=== PATIENT | female | born 1995 | race Caucasian/White ===

== ENCOUNTER 2020-06-20 13:17 | Outpatient (CLI) | payer OTHER | END 2020-06-21 23:59 | disposition critical access hospital (66) | LOC: EMS 13:17 | PROVIDERS: ATTEND Emergency Medicine | DX: S99.912A Unspecified injury of left ankle, initial encounter (principal); W10.9XXA Fall (on) (from) unspecified stairs and steps, initial encounter; Y93.E3 Activity, vacuuming; Y99.0 Civilian activity done for income or pay | CPT/HCPCS: A0425; A0429 ==

== ENCOUNTER 2020-06-20 13:37 | Emergency (ER) | payer OTHER ==
[2020-06-20] MEDS ORDERED: HYDROcod/ACETAM 5/325 MG TABLET PO STA (13:39)
--- NOTE | 2020-06-20 13:41 | ED Physician Documentation ---
PD HPI LOWER EXT INJURY - Stated complaint Stated Complaint: ANKLE PX - History obtained from History obtained from: Patient - Additional information Additional information: She was at work and fell down some stairs injuring her left ankle. No other significant injuries. Pain is severe. Review of Systems Ten Systems: 10 systems reviewed and negative Constitutional: reports: Reviewed and negative Eyes: reports: Reviewed and negative Ears: reports: Reviewed and negative Nose: reports: Reviewed and negative Throat: reports: Reviewed and negative PD PAST MEDICAL HISTORY - Present Medications Home Medications: Ambulatory Orders Medication Instructions Recorded Confirmed Gabapentin [Neurontin] 300 mg DAILY 06/20/20 06/20/20 HYDROcod/ACETAM 5/325 [[place] 5/325] 1 - 2 tab PO Q6H PRN #15 tab 06/20/20 Venlafaxine [Effexor] 37.5 mg DAILY 06/20/20 06/20/20 lamoTRIgine [Lamictal] 200 mg PO DAILY 06/20/20 06/20/20 - Allergies Allergies/Adverse Reactions: Allergies Allergy/AdvReac Type Severity Reaction Status Date / Time amoxicillin Allergy Unknown Verified 06/20/20 13:47 metoclopramide [From Reglan] Allergy Unknown Verified 06/20/20 13:47 tamsulosin [From Flomax] Allergy Unknown Verified 06/20/20 13:47 PD ED PE NORMAL - Vitals Vital signs reviewed: Yes - General General: Alert and oriented X 3, No acute distress - Neck Neck: No bony TTP - Derm Derm: Normal color, Warm and dry - Extremities Extremities: Other (Left ankle is quite tender about both malleoli without proximal fibular or foot tenderness) - Neuro Neuro: Alert and oriented X 3, Normal speech Results - Vitals Vitals: Vital Signs - 24 hr 06/20/20 13:37 Temperature 36.3 C L Heart Rate 79 Respiratory 16 Rate Blood Pressure 128/84 H O2 Saturation 99 Oxygen O2 Source Room air - Rads (name of study) L ankle XR Radiology: EMP read contemporaneously (nad) Departure - Departure Disposition: 01 Home, Self Care Clinical Impression: Left ankle sprain Condition: Good Record reviewed to determine appropriate education?: Yes Instructions: ED Sprain Ankle W X Ray Prescriptions: HYDROcod/ACETAM 5/325 [[place] 5/325] 1 - 2 tab PO Q6H PRN #15 tab PRN Reason: Pain Comments: Recheck with your doctor in a week if not improved, return for new or worsening symptoms. You can take ibuprofen in addition to the prescription pain medication for pain. Elevate and ice. Forms: Activity restrictions Discharge Date/Time: 06/20/20 14:34
[2020-06-20 13:47] VITALS: BP 128/84
--- NOTE | 2020-06-20 14:01 | XRAY Report ---
PROCEDURE: Ankle 3 View LT INDICATIONS: ankle inj TECHNIQUE: 3 views of the ankle were acquired. COMPARISON: None FINDINGS: Bones: No fractures or dislocations. Ankle mortise is normally aligned. No suspicious bony lesions . Soft tissues: No tibiotalar joint effusion. Achilles tendon appears normal. Soft tissue swelling is noted and ligamentous injury cannot be excluded. IMPRESSION: No fracture. No osseous lesion. If there are persistent symptoms or continued clinical concern for pa thology, then repeat plain film radiographs (7-10 days) or advanced imaging (CT, MR, bone scan) shoul d be considered for further evaluation. Reviewed by: Minnie Bryson MD, PhD on 06/20/2020 2:00 PM PST Approved by: Minnie Bryson MD, PhD on 06/20/2020 2:00 PM PST Station ID: [id number]
== END 2020-06-20 14:34 | disposition home or self-care (01) ==
LOC: ED 13:37
DX: S93.402A Sprain of unspecified ligament of left ankle, initial encounter (principal); W10.9XXA Fall (on) (from) unspecified stairs and steps, initial encounter; Y99.0 Civilian activity done for income or pay
CPT/HCPCS: 73610; 99283; A9270

== ENCOUNTER 2020-08-10 18:37 | Emergency (ER) | payer MEDICAID, OTHER ==
[2020-08-10] MEDS ORDERED: HYDROmorphone 1 MG/ML CARPUJECT IM STA (18:59)
[2020-08-10] MEDS ORDERED: diazePAM INJ 5 MG/ML SYRINGE IM STA (18:59)
--- NOTE | 2020-08-10 19:02 | ED Physician Documentation ---
History of Present Illness - Stated complaint Stated Complaint: NECK PX - Chief complaint Chief Complaint: Trauma Hd/Nk - Additonal information Additional information: 24-year-old female presents to the emergency department for evaluation of 3 days left neck pain. She reports that it started as a tingling in her neck and shoulder but got progressively worse. Now she has difficulty especially with forward flexion of the neck. She has no loss of strength in her upper arms and no recent falls or trauma. She states she has had similar in the past. Over the last 3 days patient has used Tylenol, ibuprofen arnica warm compresses without relief of pain. She reports the pain is severe enough that is causing her nausea. She denies chest pain or shortness of air. Review of Systems Constitutional: denies: Fever, Chills Eyes: reports: Reviewed and negative Ears: reports: Reviewed and negative Nose: reports: Reviewed and negative Throat: reports: Reviewed and negative Cardiac: reports: Reviewed and negative Respiratory: reports: Reviewed and negative GI: reports: Reviewed and negative : reports: Reviewed and negative Skin: reports: Reviewed and negative Musculoskeletal: reports: Neck pain PD PAST MEDICAL HISTORY - Past Medical History : Kidney stones Psych: Bipolar disorder - Past Surgical History Past Surgical History: Yes - Present Medications Home Medications: Ambulatory Orders Medication Instructions Recorded Confirmed Gabapentin [Neurontin] 300 mg DAILY 06/20/20 08/10/20 Venlafaxine [Effexor] 37.5 mg PO DAILY 06/20/20 08/10/20 lamoTRIgine [Lamictal] 200 mg PO DAILY 06/20/20 08/10/20 Cyclobenzaprine [Flexeril] 10 mg PO TID PRN #10 tablet 08/10/20 - Allergies Allergies/Adverse Reactions: Allergies Allergy/AdvReac Type Severity Reaction Status Date / Time amoxicillin Allergy Unknown Verified 08/10/20 18:39 metoclopramide [From Reglan] Allergy Unknown Verified 08/10/20 18:39 tamsulosin [From Flomax] Allergy Unknown Verified 08/10/20 18:39 - Social History Does the pt smoke?: No Smoking Status: Never smoker Does the pt drink ETOH?: No Does the pt have substance abuse?: Yes PD ED PE EXPANDED - General General: Alert, No acute distress - Neck Neck: Supple w/out meningeal sx, No tenderness, Soft tissue TTP (Left paraspinous tenderness to palpation with palpable spasm appreciated that does extend from just below the occiput into the lower trapezius. Reduced forward flexion of the neck but lateral rotation is preserved.), Limited ROM. No: Adenopathy, Bony TTP - Cardiac Cardiac: Regular Rate, Radial strong equal, Pedal strong equal. No: Murmur Present - Extremities Extremities: Left shoulder (Full range of motion in all planes. Motor strength 5 of 5 bilateral upper extremities. No paresthesias.) Results - Vitals Vitals: Vital Signs - 24 hr 08/10/20 18:40 Temperature 36.8 C Heart Rate 66 Respiratory 18 Rate Blood Pressure 144/82 H O2 Saturation 100 Oxygen O2 Source Room air PD MEDICAL DECISION MAKING - ED course Complexity details: reviewed results, re-evaluated patient, d/w patient ED course: 24-year-old female presents emergency department for evaluation of 3 days acute left neck pain. She has a palpable spasm in this neck that extends down the trapezius. She has no fevers or erythema suggestive of infection. I suspect that this is just minor strain likely related to frequent keyboarding. Patient was given half a milligram of Dilaudid as well as 2.5 mg of Valium with marked improvement in symptoms. Will recommend that she be discharged home with a prescription for Flexeril and warm compress. Emergent return precautions discussed. Departure - Departure Disposition: 01 Home, Self Care Clinical Impression: Neck pain on left side Condition: Stable Record reviewed to determine appropriate education?: Yes Follow-Up: TESSA FRAZIER DO [Primary Care Provider] - Prescriptions: Cyclobenzaprine [Flexeril] 10 mg PO TID PRN #10 tablet PRN Reason: Spasms Comments: You are seen in the emergency department today for left neck pain. As we discussed on exam you do have some mild spasm in the neck which I think is the cause of the pain. It may be related to frequent keyboarding or computer use. I would like you to use a warm compress on your neck for 10 minutes 3 times a day. I have also prescribed a muscle relaxer that I believe will help. It is okay to continue the Tylenol, ibuprofen and Arnica salts at home. Return to the emergency department if you are having worsening pain, fevers develop chest pain or shortness of air.
[2020-08-10 20:24] VITALS: BP 135/89
== END 2020-08-10 20:28 | disposition home or self-care (01) ==
LOC: ED 18:37
DX: M54.2 Cervicalgia (principal)
CPT/HCPCS: 96372; 99283; J1170

== ENCOUNTER 2020-08-11 15:50 | Emergency (ER) | payer MEDICAID ==
[2020-08-11] MEDS ORDERED: diazePAM INJ 5 MG/ML SYRINGE IM STA (16:29)
[2020-08-11] MEDS ORDERED: HYDROmorphone 1 MG/ML CARPUJECT IM STA ×2 (16:29→17:04)
[2020-08-11] MEDS ORDERED: CHERRY SYRUP 10 ML UDC PO ONE ×2 (16:30→17:42)
[2020-08-11] MEDS ORDERED: DEXAMETHASONE 10 MG/ML VIAL PO STA ×2 (16:30→17:42)
--- NOTE | 2020-08-11 16:33 | ED Physician Documentation ---
History of Present Illness - Stated complaint Stated Complaint: NECK PX - Chief complaint Chief Complaint: General - Additonal information Additional information: 24-year-old female return to the emergency department for evaluation of left-si ded neck pain. She was seen by me last night and found to have left-sided neck pain that had occurred 2 days previously simply when typing. Her symptoms markedly improved following small doses of Valium and Dilaudid here in the emergency department. She was discharged home with prescription for Flexeril and has taken the medication twice today without relief. She reports that her neck pain is worse she is now unable to rotate or extend her neck. She denies any fevers falls or trauma. Review of Systems Constitutional: denies: Fever, Chills Eyes: reports: Reviewed and negative Ears: reports: Reviewed and negative Nose: reports: Reviewed and negative Throat: reports: Reviewed and negative Cardiac: reports: Reviewed and negative Respiratory: reports: Reviewed and negative GI: reports: Reviewed and negative : reports: Reviewed and negative Musculoskeletal: reports: Neck pain. denies: Back pain, Extremity pain Neurologic: denies: Generalized weakness, Focal weakness, Numbness PD PAST MEDICAL HISTORY - Past Medical History : Kidney stones Psych: Bipolar disorder - Past Surgical History Past Surgical History: Yes - Present Medications Home Medications: Ambulatory Orders Medication Instructions Recorded Confirmed Gabapentin [Neurontin] 300 mg DAILY 06/20/20 08/11/20 Venlafaxine [Effexor] 37.5 mg PO DAILY 06/20/20 08/11/20 lamoTRIgine [Lamictal] 200 mg PO DAILY 06/20/20 08/11/20 Cyclobenzaprine [Flexeril] 10 mg PO TID PRN #10 tablet 08/10/20 08/11/20 oxyCODONE [Roxicodone] 5 mg PO TID PRN #10 tablet 08/11/20 - Allergies Allergies/Adverse Reactions: Allergies Allergy/AdvReac Type Severity Reaction Status Date / Time amoxicillin Allergy Unknown Verified 08/11/20 15:52 metoclopramide [From Reglan] Allergy Unknown Verified 08/11/20 15:52 tamsulosin [From Flomax] Allergy Unknown Verified 08/11/20 15:52 - Social History Does the pt smoke?: No Smoking Status: Never smoker Does the pt drink ETOH?: No Does the pt have substance abuse?: Yes PD ED PE EXPANDED - General General: Alert, In Pain - Neck Neck: Soft tissue TTP (Left paraspinous muscle palpable and in spasm with radiation down the trapezius and into the shoulder. Full range of motion of shoulders in all planes. No loss of motor strength or weakness in upper extremities. No paresthesias. Reduced forward flexion as well as lateral rotation secondary to pa), Limited ROM. No: Bony TTP - Cardiac Cardiac: Regular Rate, Radial strong equal, Pedal strong equal, Cap refill < 2 sec - Respiratory Respiratory: Clear to ausultation alfreod. No: Distress, Labored - Extremities Extremities: Normal. No: Deformity, Tenderness - Neuro Neuro: Alert and Oriented X 3. No: CNII-XII intact - GCS Eye Opening: Spontaneous Motor: Obeys Commands Verbal: Oriented Total: 15 Results - Vitals Vitals: Vital Signs - 24 hr 08/11/20 15:53 Temperature 36.6 C Heart Rate 66 Respiratory 18 Rate Blood Pressure 127/79 O2 Saturation 94 Oxygen O2 Source Room air PD MEDICAL DECISION MAKING - ED course Complexity details: reviewed old records, reviewed results, re-evaluated patient ED course: 24-year-old female presents the emergency department for evaluation of left sided neck pain that began now 3 days ago when she was sitting at a computer typing. She has a palpable spasm in the left paraspinous muscles. She was seen here last night and improved remarkably after Valium and Dilaudid. She was sent home with prescription for Flexeril but despite taking that today he does not have improved symptoms and in fact they are worse thus she returns here. She has no motor weakness fevers falls or trauma therefore imaging was deferred as well as labs. Patient was initially given Valium and Dilaudid with moderate relief of pain but she continues to be in significant distress therefore an additional 1 mg of Dilaudid was administered with marked improvement in her symptoms. However she did get itchy, which responded to benadryl. Patient will be discharged with prescription for oxycodone to be used very sparingly continue gentle massage and range of motion of the neck. She is encouraged to follow-up with a primary care provider to obtain referral to physical therapy or chiropractor for further evaluation. Emergent return precautions were discussed. Departure - Departure Disposition: 01 Home, Self Care Clinical Impression: Neck pain Prescriptions: oxyCODONE [Roxicodone] 5 mg PO TID PRN #10 tablet PRN Reason: Pain Comments: I am sorry that your neck is giving you such fits. I have written a rx for oxycodone to be used 2-3 times a day for severe neck pain only. Use this cautiously it will legally intoxicated you make you unsafe to drive. Also increases your risk for falls as well as constipation. IF you get excessively itch, it is okay to take benadryl at home. As pain begins to improve I do recommend very gentle massage to try and lighten the spasm in your neck. At this point I would recommend continuation of gentle heat and range of motion exercises. I think that you would benefit by referral to a physical therapist or chiropractor. This referral has to come through your primary care doctor however. If you find that your pain is worsening, you have weakness in your arms, develop any fevers or have difficulty swallowing or breathing please return immediately to the ER.
[2020-08-11] MEDS ORDERED: diphenhydrAMINE INJ 50 MG/ML VIAL IM STA (17:31)
[2020-08-11 18:13] VITALS: BP 140/90
== END 2020-08-11 18:12 | disposition home or self-care (01) ==
LOC: ED 15:50
DX: M54.2 Cervicalgia (principal)
CPT/HCPCS: 96372; 99283; 99284; A9270; J1170; J1200

== ENCOUNTER 2021-03-16 22:00 | Emergency (ER) | payer MEDICAID ==
[2021-03-16 22:15] VITALS: BP 114/74
[2021-03-16] MEDS ORDERED: KETOROLAC 30 MG/ML VIAL IM STA (22:32)
--- NOTE | 2021-03-16 22:34 | ED Physician Documentation ---
PD HPI SKIN - Stated complaint Stated Complaint: R MIDDLE FING LACERATION - Chief complaint Chief Complaint: Laceration - History obtained from History obtained from: Patient - Additional information Additional information: 25-year-old woman Presents status post superficial laceration of the tip of her right middle finger occurring today. Tetanus up-to-date. No other injuries. Review of Systems Skin: reports: Laceration (s) PD PAST MEDICAL HISTORY - Past Medical History : Kidney stones Psych: Bipolar disorder - Past Surgical History Past Surgical History: Yes - Present Medications Home Medications: Ambulatory Orders Medication Instructions Recorded Confirmed Gabapentin [Neurontin] 300 mg DAILY 06/20/20 03/16/21 Venlafaxine [Effexor] 37.5 mg PO DAILY 06/20/20 03/16/21 lamoTRIgine [Lamictal] 200 mg PO DAILY 06/20/20 03/16/21 Etonogestrel/Ethinyl Estradiol 1 03/16/21 [Nuvaring Vaginal Ring] - Allergies Allergies/Adverse Reactions: Allergies Allergy/AdvReac Type Severity Reaction Status Date / Time amoxicillin Allergy Unknown Verified 03/16/21 22:11 metoclopramide [From Reglan] Allergy Unknown Verified 03/16/21 22:11 tamsulosin [From Flomax] Allergy Unknown Verified 03/16/21 22:11 - Social History Does the pt smoke?: No Smoking Status: Never smoker Does the pt drink ETOH?: No Does the pt have substance abuse?: Yes PD ED PE NORMAL - Vitals Vital signs reviewed: Yes - General General: Alert and oriented X 3, No acute distress, Well developed/nourished - Derm Derm: Normal color, Warm and dry, Other (0.5 cm laceration to right third palmar aspect of the distal tip of the finger. Superficial without subcutaneous skin involvement. Good capillary refill. Normal sensation.) - Extremities Extremities: No deformity, Normal ROM s pain - Neuro Neuro: Alert and oriented X 3, No motor deficit, No sensory deficit - Psych Psych: Normal mood, Normal affect Results - Vitals Vitals: Vital Signs - 24 hr 03/16/21 22:08 Temperature 36.6 C Heart Rate 87 Respiratory 16 Rate Blood Pressure 114/74 O2 Saturation 97 Oxygen O2 Source Room air Procedures - Laceration (location) Finger right Length in cm: 0.5 Wound type: Linear, Superficial Neurovascular status: Sensory intact, Motor intact, Vascular intact Skin layer closure: Dermabond Other: Patient tolerated well, No complications, Tetanus UTD PD MEDICAL DECISION MAKING - ED course ED course: 25-year-old woman presented with superficial laceration of the tip of the right third finger. Repaired without issues. Return precautions given. Departure - Departure Disposition: 01 Home, Self Care Clinical Impression: Laceration of finger Condition: Good Instructions: ED Laceration All Comments: You were seen in the emergency department for laceration of your finger. It was cleaned and then Dermabond skin glue was applied which will fall off on its own over time. Do not pick at it. Keep the finger clean and covered while at work. Return to the emergency department if you have any signs or symptoms of infection or any other concerns. Take ibuprofen 400 to 600 mg every 6 hours as needed for pain.
== END 2021-03-16 22:48 | disposition home or self-care (01) ==
LOC: ED 22:00
DX: S61.212A Laceration without foreign body of right middle finger without damage to nail, initial encounter (principal); W27.4XXA Contact with kitchen utensil, initial encounter; Y93.G3 Activity, cooking and baking
CPT/HCPCS: 12001; 99283

== ENCOUNTER 2021-04-11 19:48 | Emergency (ER) | payer MEDICAID ==
[2021-04-11] MEDS ORDERED: KETOROLAC 30 MG/ML VIAL IVP STA (20:11)
[2021-04-11 20:23] LABS: HCG UR QUAL NEGATIVE
[2021-04-11 20:25] LABS: BILIRUBIN,URINE NEGATIVE (NEGATIVE); GLUCOSE, URINE (UA) NEGATIVE (NEGATIVE); LEUKOCYTE ESTERASE, URINE NEGATIVE (NEGATIVE); NITRITE,URINE NEGATIVE (NEGATIVE); OCCULT BLOOD,URINE SMALL (NEGATIVE); PH,URINE 6.5 PH (5.0-7.5); PROTEIN,URINE NEGATIVE (NEGATIVE); UROBILINOGEN,URINE 0.2 (NORMAL) E.U./dL (NORMAL)
[2021-04-11 20:28] LABS: CLARITY,URINE CLEAR (CLEAR); KETONES,URINE (UA) TRACE mg/dL (NEGATIVE)
[2021-04-11 20:29] LABS: BASOPHILS # (AUTO) 0.1 10^3/uL (0.0-0.1); EOSINOPHILS # (AUTO) 0.3 10^3/uL (0.0-0.7); EOSINOPHILS % (AUTO) 2.8 %; HCT - HEMATOCRIT 43.1 % (37.0-47.0); LYMPHOCYTES # (AUTO) 4.8 10^3/uL (1.5-3.5); LYMPHOCYTES % (AUTO) 53.4 %; MEAN CORPUSCULAR HEMOGLOBIN 31.7 pg (27.0-31.0); MEAN CORPUSCULAR HGB CONC 32.5 g/dL (32.0-36.0); MEAN CORPUSCULAR VOLUME 97.5 fL (81.0-99.0); MONOCYTES # (AUTO) 0.6 10^3/uL (0.0-1.0); MONOCYTES % (AUTO) 6.7 %; NEUTROPHILS # (AUTO) 3.2 10^3/uL (1.5-6.6); NEUTROPHILS % (AUTO) 35.7 %; NRBC ABSOLUTE COUNT (AUTO) 0.02 x10^3/uL; NUCLEATED RED BLOOD CELLS AUTO 0.2 /100WBC; PLT - PLATELET COUNT 341 10^3/uL (130-450); RED BLOOD COUNT 4.42 10^6/uL (4.20-5.40); RED CELL DISTRIBUTION WIDTH 12.9 % (12.0-15.0); WHITE BLOOD COUNT 8.9 x10^3/uL (4.8-10.8)
[2021-04-11 20:35] LABS: WBC,URINE 0-3 /HPF (0-5)
[2021-04-11 20:36] LABS: BACTERIA,URINE Rare /HPF (None Seen); MUCUS,URINE Few Strands; SQUAMOUS EPITHELIAL CELL,UR FEW Squamous (<= Few)
[2021-04-11] MEDS ORDERED: SODIUM CHLORIDE 0.9% 1,000 ML IV STA (20:40)
[2021-04-11] MEDS ORDERED: ONDANSETRON 4 MG/2 ML VIAL IVP STA (20:40)
[2021-04-11] MEDS ORDERED: HYDROmorphone 1 MG/ML CARPUJECT IVP STA ×3 (20:40→23:00)
[2021-04-11 21:00] LABS: ALBUMIN 3.7 g/dL (3.2-5.5); BILIRUBIN,TOTAL 0.6 mg/dL (0.2-1.0); CALCIUM 8.8 mg/dL (8.5-10.3); CREATININE 0.8 mg/dL (0.4-1.0); POTASSIUM 3.8 mmol/L (3.5-5.0); TOTAL PROTEIN 7.5 g/dL (6.7-8.2)
--- NOTE | 2021-04-11 21:51 | CT Report ---
PROCEDURE: Abdomen/Pelvis WO INDICATIONS: R flank pain TECHNIQUE: Noncontrast 5 mm thick sections acquired from the diaphragms to the symphysis. 5 mm coronal and sagi ttal reformats were then performed. For radiation dose reduction, the following was used: automated exposure control, adjustment of mA and/or kV according to patient size. COMPARISON: None. FINDINGS: Image quality: Excellent. ABDOMEN: Lung bases: Lung bases are clear. Heart size is normal. Small hiatal hernia. Solid organs: Liver is prominent. Gallbladder is unremarkable. Pancreas is normal in contours. No splenomegaly. No adrenal nodules. Kidneys are normal in size, without hydronephrosis. A few small no nobstructing kidney stones. One right kidney stone measuring 0.3 cm. 3 kidney stones on the left. Lar gest measuring 0.3 cm. Peritoneum and bowel: Unenhanced bowel loops demonstrate normal wall thickness and caliber. A few co lonic diverticuli. The appendix is not dilated. No free fluid or air. Nodes and vessels: No retroperitoneal or mesenteric adenopathy by size criteria. Aorta and inferior vena cava are normal in caliber. Miscellaneous: No ventral hernias. PELVIS: Genitourinary: Bladder wall thickness is normal. No bladder stones. Anteflexed uterus. Contraceptiv e ring in the vagina. Miscellaneous: No inguinal hernias or adenopathy. Bones: No suspicious bony lesions. No vertebral body compression fractures. IMPRESSION: 1. No hydronephrosis. 2. A few small nonobstructing kidney stones. 3. The appendix is not dilated. No free fluid. Reviewed by: Adolfo Houser MD on 04/11/2021 9:50 PM PST Approved by: Adolfo Houser MD on 04/11/2021 9:50 PM PST Station ID: [id number]
--- NOTE | 2021-04-11 22:05 | ED Physician Documentation ---
PD HPI ABD PAIN - Stated complaint Stated Complaint: VOM/BACK PX - Chief complaint Chief Complaint: Abd Pain - History obtained from History obtained from: Patient - History of Present Illness Timing - onset: How many days ago (3) Timing - duration: Days (3) Timing - details: Gradual onset, Still present, Waxing and waning Quality: Sharp, Pain Location: RUQ Radiation: Right flank Improved by: Position Worsened by: Other (nothing) Associated symptoms: Nausea, Vomiting. No: Fever, Hematemesis, Diarrhea, Constipation, Dysuria Similar symptoms before: Diagnosis (kidney stone) Recently seen: Not recently seen - Additional information Additional information: Previously well 25-year-old female who has a history of kidney stones Review of Systems Constitutional: denies: Fever Eyes: denies: Decreased vision Ears: denies: Ear pain Nose: denies: Congestion Throat: denies: Sore throat Cardiac: denies: Chest pain / pressure, Palpitations Respiratory: denies: Dyspnea, Cough GI: reports: Abdominal Pain, Nausea. denies: Constipation, Diarrhea : denies: Dysuria, Frequency Skin: denies: Rash Musculoskeletal: reports: Back pain. 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 : Kidney stones HEENT: None Psych: Bipolar disorder Musculoskeletal: None Derm: None - Past Surgical History Past Surgical History: Yes - Present Medications Home Medications: Ambulatory Orders Medication Instructions Recorded Confirmed Gabapentin [Neurontin] 300 mg DAILY 06/20/20 03/16/21 Venlafaxine [Effexor] 37.5 mg PO DAILY 06/20/20 03/16/21 lamoTRIgine [Lamictal] 200 mg PO DAILY 06/20/20 03/16/21 Etonogestrel/Ethinyl Estradiol 1 03/16/21 [Nuvaring Vaginal Ring] - Allergies Allergies/Adverse Reactions: Allergies Allergy/AdvReac Type Severity Reaction Status Date / Time amoxicillin Allergy Unknown Verified 03/16/21 22:11 metoclopramide [From Reglan] Allergy Unknown Verified 03/16/21 22:11 tamsulosin [From Flomax] Allergy Unknown Verified 03/16/21 22:11 - Social History Does the pt smoke?: No Smoking Status: Never smoker Does the pt drink ETOH?: No Does the pt have substance abuse?: No Substance Use and Type: Marijuana - Immunizations Immunizations are current?: Yes Immunizations: TDAP current <10years - POLST Patient has POLST: No PD ED PE NORMAL - Vitals Vital signs reviewed: Yes (hypertensive ) - General General: Alert and oriented X 3, No acute distress, Well developed/nourished, Other (does not appear to be in pain observed from outside the room. ) - HEENT HEENT: Atraumatic, PERRL, EOMI - Neck Neck: Supple, no meningeal sign, No bony TTP - Cardiac Cardiac: RRR, No murmur - Respiratory Respiratory: No respiratory distress, Clear bilaterally - Abdomen Abdomen: Normal bowel sounds, Soft, Non tender, Non distended, No organomegaly - Back Back: No CVA TTP, No spinal TTP - Derm Derm: Normal color, Warm and dry, No rash - Extremities Extremities: No deformity, No edema - Neuro Neuro: Alert and oriented X 3, screen stretcher 2-12 intact, No motor deficit, No sensory deficit, Normal speech Eye Opening: Spontaneous Motor: Obeys Commands Verbal: Oriented GCS Score: 15 - Psych Psych: Normal mood, Normal affect Results - Vitals Vitals: Vital Signs - 24 hr 04/11/21 04/11/21 19:53 20:54 Temperature 36.6 C Heart Rate 85 82 Respiratory 16 16 Rate Blood Pressure 134/71 H 116/71 O2 Saturation 92 96 Oxygen O2 Source Room air - Labs Labs: Laboratory Tests 04/11/21 04/11/21 04/11/21 20:00 20:00 20:19 WBC 8.9 RBC 4.42 Hgb 14.0 Hct 43.1 MCV 97.5 MCH 31.7 H MCHC 32.5 RDW 12.9 Plt Count 341 MPV 10.0 Neut # (Auto) 3.2 Lymph # (Auto) 4.8 H [place] # (Auto) 0.6 Eos # (Auto) 0.3 Baso # (Auto) 0.1 Absolute Nucleated RBC 0.02 Nucleated RBC % 0.2 Sodium Potassium Chloride Carbon Dioxide Anion Gap BUN Creatinine Estimated GFR (MDRD) Glucose Calcium Total Bilirubin AST ALT Alkaline Phosphatase Total Protein Albumin Globulin Albumin/Globulin Ratio Lipase Urine Color YELLOW Urine Clarity CLEAR Urine pH 6.5 Ur Specific [place] 1.020 Urine Protein NEGATIVE Urine Glucose (UA) NEGATIVE Urine Ketones TRACE Urine Occult Blood SMALL H Urine Nitrite NEGATIVE Urine Bilirubin NEGATIVE Urine Urobilinogen 0.2 (NORMAL) Ur Leukocyte Esterase NEGATIVE Urine RBC 6-10 H Urine WBC 0-3 Ur Squamous Epith Cells FEW Squamous Urine Bacteria Rare Urine Mucus Few Strands Urine Culture Comments NOT INDICATED Urine HCG, Qual NEGATIVE 04/11/21 20:19 WBC RBC Hgb Hct MCV MCH MCHC RDW Plt Count MPV Neut # (Auto) Lymph # (Auto) [place] # (Auto) Eos # (Auto) Baso # (Auto) Absolute Nucleated RBC Nucleated RBC % Sodium 136 Potassium 3.8 Chloride 103 Carbon Dioxide 22 Anion Gap 11.0 BUN 9 Creatinine 0.8 Estimated GFR (MDRD) 86 L Glucose 86 Calcium 8.8 Total Bilirubin 0.6 AST 20 ALT 18 Alkaline Phosphatase 72 Total Protein 7.5 Albumin 3.7 Globulin 3.8 Albumin/Globulin Ratio 1.0 Lipase 38 Urine Color Urine Clarity Urine pH Ur Specific [place] Urine Protein Urine Glucose (UA) Urine Ketones Urine Occult Blood Urine Nitrite Urine Bilirubin Urine Urobilinogen Ur Leukocyte Esterase Urine RBC Urine WBC Ur Squamous Epith Cells Urine Bacteria Urine Mucus Urine Culture Comments Urine HCG, Qual - Rads (name of study) CT ab pel without Radiology: Prelim report reviewed Procedures - Bedside sono Bedside sono by EMP: With use bedside ultrasound the right kidney is imaged there is no evidence of hydronephrosis there is ninimal sonographic tenderness. PD MEDICAL DECISION MAKING - ED course Complexity details: reviewed old records, reviewed results, re-evaluated patient, considered differential, d/w patient ED course: 25-year-old female patient with prior history of kidney stone requiring lithotripsy stone up to 8 mm has symptoms consistent with kidney stone and she presents after 3 days of symptoms now having developed some vomiting. She has some trace blood in her urine and this is the only specific finding on our examination. I did not find her to have hydronephrosis on bedside ultrasound exam and the CT of the abdomen pelvis did not demonstrate hydronephrosis or stone in the ureter. There is a solitary stone in the right kidney and it is small. There are 3 tiny stones in the left kidney as well. The patient was administered Toradol without improvement in her pain she was subsequently administered Dilaudid and Zofran which required multiple doses. She eventually got control of her pain. I was unable to explain the reason for her flank pain. She was uncomfortable going home without control of her pain. We will provide some pain medication and she will follow up with her primary. I have not written a prescription for pain medication only administered a prepack of 4 hydrocodone. Departure - Departure Disposition: Home, Self Care Clinical Impression: Flank pain with history of urolithiasis Condition: Stable Instructions: ED Flank Pain Uncertain Cause Follow-Up: TESSA FRAZIER DO [Primary Care Provider] - Forms: Activity restrictions
[2021-04-11] MEDS ORDERED: HYDROcod/ACET 5/325 Prepack 4 PO STA (23:08)
[2021-04-11 23:47] VITALS: BP 110/74
== END 2021-04-11 23:47 | disposition home or self-care (01) ==
LOC: ED 19:48
DX: R10.11 Right upper quadrant pain (principal); Z87.442 Personal history of urinary calculi
CPT/HCPCS: 36415; 74176; 80053; 81001; 81025; 83690; 85025; 96374; 96375; 96376; 99284; J1170; 87086

== ENCOUNTER 2021-05-03 18:38 | Emergency (ER) | payer MEDICAID ==
[2021-05-03 18:44] VITALS: BP 142/72
[2021-05-03] MEDS ORDERED: BENZONATATE 100 MG CAPSULE PO STA (19:07)
[2021-05-03] MEDS ORDERED: ONDANSETRON ODT 4 MG TABLET TL STA (19:07)
--- NOTE | 2021-05-03 19:16 | ED Physician Documentation ---
History of Present Illness - Stated complaint Stated Complaint: FEELING SICK - Chief complaint Chief Complaint: General - History obtained from History obtained from: Patient - History of Present Illness Timing: How many days ago (2) Pain level max: 5 Pain level now: 5 - Additonal information Additional information: Patient is a 25-year-old female who presents to the emergency department with fever, body aches, nasal congestion and dry cough. She has had her Covid vaccines. Nothing makes it better or worse. Took Tylenol and Motrin just prior to arrival. Denies any possibility of . No shortness of breath. Occasional nausea but no vomiting. No diarrhea or constipation. Review of Systems Constitutional: reports: Fever Nose: reports: Rhinorrhea / runny nose, Congestion Throat: reports: Sore throat Cardiac: denies: Chest pain / pressure Respiratory: reports: Cough GI: reports: Nausea. denies: Vomiting, Diarrhea : denies: Dysuria, Frequency, Hesitancy, Now EGA Skin: denies: Rash Musculoskeletal: denies: Neck pain, Back pain PD PAST MEDICAL HISTORY - Past Medical History Cardiovascular: None Respiratory: None Neuro: None Endocrine/Autoimmune: None GI: None VP PRODUCT: None : Kidney stones HEENT: None Psych: Bipolar disorder Musculoskeletal: None Derm: None - Past Surgical History Past Surgical History: Yes - Present Medications Home Medications: Ambulatory Orders Medication Instructions Recorded Confirmed Gabapentin [Neurontin] 300 mg DAILY 06/20/20 03/16/21 Venlafaxine [Effexor] 37.5 mg PO DAILY 06/20/20 03/16/21 lamoTRIgine [Lamictal] 200 mg PO DAILY 06/20/20 03/16/21 Etonogestrel/Ethinyl Estradiol 1 03/16/21 [Nuvaring Vaginal Ring] Benzonatate [Tessalon] 200 mg PO TID PRN #30 cap 05/03/21 Cetirizine HCl/Pseudoephedrine 1 each PO BID PRN #30 ea 05/03/21 [Zyrtec-D Tablet] Ibuprofen [Motrin] 800 mg PO Q8H PRN #30 tablet 05/03/21 Ondansetron Odt [Zofran] 4 mg TL Q6H PRN #10 tablet 05/03/21 - Allergies Allergies/Adverse Reactions: Allergies Allergy/AdvReac Type Severity Reaction Status Date / Time amoxicillin Allergy Unknown Verified 05/03/21 18:43 metoclopramide [From Reglan] Allergy Unknown Verified 05/03/21 18:43 tamsulosin [From Flomax] Allergy Unknown Verified 05/03/21 18:43 - Social History Does the pt smoke?: No Smoking Status: Never smoker Does the pt drink ETOH?: No Does the pt have substance abuse?: No - Immunizations Immunizations are current?: Yes Immunizations: TDAP current <10years - POLST Patient has POLST: No PD ED PE NORMAL - Vitals Vital signs reviewed: Yes - General General: Alert and oriented X 3, No acute distress, Well developed/nourished - HEENT HEENT: PERRL, Ears normal, Moist mucous membranes, Other (Mild posterior pharyngeal erythema without tonsillar exudates. Uvula midline. Normal phonation. No trismus) - Neck Neck: Supple, no meningeal sign, No adenopathy - Cardiac Cardiac: RRR, Strong equal pulses - Respiratory Respiratory: No respiratory distress, Clear bilaterally - Abdomen Abdomen: Soft, Non tender, Non distended - Derm Derm: Warm and dry, No rash - Extremities Extremities: No edema, No calf tenderness / cord - Neuro Neuro: Alert and oriented X 3 - Psych Psych: Normal mood, Normal affect Results - Vitals Vitals: Vital Signs - 24 hr 05/03/21 18:43 Temperature 37.7 C Heart Rate 101 H Respiratory 18 Rate Blood Pressure 142/72 H O2 Saturation 95 Oxygen O2 Source Room air PD MEDICAL DECISION MAKING - ED course Complexity details: considered differential, d/w patient ED course: Patient is well-appearing, nontoxic. Afebrile. No hypoxia. No respiratory distress. Covid testing sent. Appears to have a viral syndrome. Will prescribe medications for home to help with her symptoms. Recommend she stay home and drink plenty of fluids and rest. Patient counseled regarding signs and symptoms for which I believe and urgent re-evaluation would be necessary. Patient with good understanding of and agreement to plan and is comfortable going home at this time This document was made in part using voice recognition software. While efforts are made to proofread this document, sound alike and grammatical errors may occur. Departure - Departure Disposition: 01 Home, Self Care Clinical Impression: Viral syndrome Condition: Good Instructions: ED Viral Syndrome Follow-Up: TESSA FRAZIER DO [Primary Care Provider] - Within 1 week Prescriptions: Ibuprofen [Motrin] 800 mg PO Q8H PRN #30 tablet PRN Reason: PAIN &/OR FEVER Benzonatate [Tessalon] 200 mg PO TID PRN #30 cap PRN Reason: Cough Ondansetron Odt [Zofran] 4 mg TL Q6H PRN #10 tablet PRN Reason: Nausea / Vomiting Cetirizine HCl/Pseudoephedrine [Zyrtec-D Tablet] 1 each PO BID PRN #30 ea PRN Reason: nasal congestion Comments: Your prescriptions were sent to [facility] in [place]. You will be sick for the next several days. I would recommend drinking plenty of fluids and resting. Take the medications as prescribed. Follow-up with your doctor for further care. You have a Covid test pending. You need to self quarantine until the result is done and negative. The results should be done in 24-48 hours. We will call with a positive result, the fastest way to get a negative result for confirmation though is to go to the hospital website at [email or web address], click on the my [email or web address] tab and sign up for the patient portal. If any of your friends and/or family need to be tested, they can call the hospital at [phone] for an appointment to have their Covid test. Forms: Activity restrictions
== END 2021-05-03 19:37 | disposition home or self-care (01) ==
LOC: ED 18:38
DX: U07.1 COVID-19 (principal)
CPT/HCPCS: 87635; 99283; A9270; Q0162

== ENCOUNTER 2021-08-11 21:00 | Emergency (ER) | payer MEDICAID ==
[2021-08-11 21:14] VITALS: BP 127/75
--- NOTE | 2021-08-11 21:15 | ED Physician Documentation ---
History of Present Illness - Stated complaint Stated Complaint: R LEG PX/NUMBNESS - Chief complaint Chief Complaint: Ext Problem - History obtained from History obtained from: Patient - History of Present Illness Timing: Enter time (15:00), Today Pain level now: 1 Improved by: rest Worsened by: movement, ambulation - Additonal information Additional information: c/o sudden onset RLE dull pain and mild paresthesias. Onset was approximately 3 PM today while walking. Symptoms originate at back of top of leg and at posterior aspect of right buttock, radiate down posterolateral aspect of leg to just distal to knee. denies h/o similar symptoms Review of Systems Cardiac: reports: Reviewed and negative Respiratory: reports: Reviewed and negative Musculoskeletal: reports: Extremity pain. denies: Back pain, Extremity swelling Neurologic: reports: Numbness (RLE paresthesias). 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 : Kidney stones HEENT: None Psych: Bipolar disorder Musculoskeletal: None Derm: None - Past Surgical History Past Surgical History: Yes - Present Medications Home Medications: Ambulatory Orders Medication Instructions Recorded Confirmed Gabapentin [Neurontin] 300 mg DAILY 06/20/20 03/16/21 Venlafaxine [Effexor] 37.5 mg PO DAILY 06/20/20 03/16/21 lamoTRIgine [Lamictal] 200 mg PO DAILY 06/20/20 03/16/21 Etonogestrel/Ethinyl Estradiol 1 03/16/21 [Nuvaring Vaginal Ring] Benzonatate [Tessalon] 200 mg PO TID PRN #30 cap 05/03/21 Cetirizine HCl/Pseudoephedrine 1 each PO BID PRN #30 ea 05/03/21 [Zyrtec-D Tablet] Ibuprofen [Motrin] 800 mg PO Q8H PRN #30 tablet 05/03/21 Ondansetron Odt [Zofran] 4 mg TL Q6H PRN #10 tablet 05/03/21 - Allergies Allergies/Adverse Reactions: Allergies Allergy/AdvReac Type Severity Reaction Status Date / Time amoxicillin Allergy Unknown Verified 08/11/21 21:14 metoclopramide [From Reglan] Allergy Unknown Verified 08/11/21 21:14 tamsulosin [From Flomax] Allergy Unknown Verified 08/11/21 21:14 - Social History Does the pt smoke?: No Smoking Status: Never smoker Does the pt drink ETOH?: No Does the pt have substance abuse?: No - Immunizations Immunizations are current?: Yes Immunizations: TDAP current <10years - POLST Patient has POLST: No PD ED PE NORMAL - Vitals Vital signs reviewed: Yes - General General: Alert and oriented X 3, No acute distress, Well developed/nourished - Abdomen Abdomen: Soft, Non tender - Back Back: No CVA TTP, No spinal TTP - Derm Derm: Normal color, Warm and dry, No rash - Extremities Extremities: No deformity, No tenderness to palpate, Normal ROM s pain, No edema, No calf tenderness / cord - Neuro Neuro: No motor deficit, No sensory deficit Results - Vitals Vitals: Oxygen O2 Source Room air PD MEDICAL DECISION MAKING - ED course Complexity details: considered differential, d/w patient ED course: suspect musculoskeletal origin of symptoms, possibly lumbar strain, lumbar radiculopathy Doubt DVT given sudden onset, lack of swelling, lack of circumferential symptoms (pain, paresthesias are predominantly posterolateral). Emergent testing is not indicated at this time. She expresses concern for DVT, saying she has a family h/o DVT. I provided my reasoning regarding why it is unlikely to be DVT, but that ultrasound is not available at this time anyway. If she has ongoing concerns for DVT, I offered option of having her return after 9 AM for US (at the discretion of whomever evaluates her at that time). Departure - Departure Disposition: 01 Home, Self Care Clinical Impression: Leg pain, right Condition: Good Instructions: ED Sciatica Comments: As we discussed, despite a lack of injury, the description of your symptoms would seem most consistent with a nerve impingement such as the sciatic nerve (as the discharge instructions point out, there is not always low back pain with sciatica, but the diagnosis cannot be reasonably suspected unless there is pain along the course of the sciatic nerve, which you seem to be describing). I have a low suspicion for DVT (deep venous thrombosis) of the leg, but given your family history it would be reasonable to have an ultrasound performed to look into this possibility. As we discussed, ultrasound is not available at [facility] at night; you can return in the morning to the ED for an ultrasound. Discharge Date/Time: 08/11/21 21:55
[2021-08-11] MEDS ORDERED: IBUPROFEN 600 MG TABLET PO STA (21:38)
== END 2021-08-11 21:55 | disposition home or self-care (01) ==
LOC: ED 21:00
DX: M79.604 Pain in right leg (principal)
CPT/HCPCS: 99282; A9270

== ENCOUNTER 2021-11-07 10:47 | Emergency (ER) | payer MEDICAID ==
[2021-11-07 11:07] VITALS: BP 123/71
--- NOTE | 2021-11-07 11:49 | ED Physician Documentation ---
PD HPI UPPER EXT INJURY - Stated complaint Stated Complaint: RT FOREARM PAIN - Chief complaint Chief Complaint: Ext Problem - History obtained from History obtained from: Patient - History of Present Illness Location: Right, Elbow, Forearm Type of injury: Other (she had had IV started in that area right medial antecubital 3 weeks ago when in ER for presumed viral GE. Sine then, she has had persistent tenderness and mild swelling in that area and has increased to ulnar aspect proximal forearm soft tissue.) Where injury occurred: Other (in ER 3 weeks ago when got IV.) Timing - onset: How many weeks ago (3) Timing - duration: Weeks (3) Timing - details: Gradual onset, Still present Worsened by: Palpating Associated symptoms: Swelling. No: Weakness, Numbness, Discolored Similar symptoms before: Has not had sx before Review of Systems Constitutional: denies: Fever, Chills Musculoskeletal: denies: Neck pain, Extremity swelling Neurologic: denies: Focal weakness, Numbness PD PAST MEDICAL HISTORY - Past Medical History Cardiovascular: None Respiratory: None Neuro: None Endocrine/Autoimmune: None GI: None PCA: None : Kidney stones HEENT: None Psych: Bipolar disorder Musculoskeletal: None Derm: None - Past Surgical History Past Surgical History: Yes - Present Medications Home Medications: Ambulatory Orders Medication Instructions Recorded Confirmed Gabapentin [Neurontin] 300 mg DAILY 06/20/20 03/16/21 Venlafaxine [Effexor] 37.5 mg PO DAILY 06/20/20 03/16/21 lamoTRIgine [Lamictal] 200 mg PO DAILY 06/20/20 03/16/21 Etonogestrel/Ethinyl Estradiol 1 03/16/21 [Nuvaring Vaginal Ring] Benzonatate [Tessalon] 200 mg PO TID PRN #30 cap 05/03/21 Cetirizine HCl/Pseudoephedrine 1 each PO BID PRN #30 ea 05/03/21 [Zyrtec-D Tablet] Ibuprofen [Motrin] 800 mg PO Q8H PRN #30 tablet 05/03/21 Ondansetron Odt [Zofran] 4 mg TL Q6H PRN #10 tablet 05/03/21 Ondansetron Odt [Zofran] 4 mg TL Q6H PRN #10 tablet 10/18/21 Naproxen 500 mg PO BID 10 Days #20 tab.sr 11/07/21 - Allergies Allergies/Adverse Reactions: Allergies Allergy/AdvReac Type Severity Reaction Status Date / Time amoxicillin Allergy Unknown Verified 11/07/21 11:07 metoclopramide [From Reglan] Allergy Unknown Verified 11/07/21 11:07 tamsulosin [From Flomax] Allergy Unknown Verified 11/07/21 11:07 prochlorperazine AdvReac Anxiety Verified 11/07/21 11:07 [From Compazine] - Social History Does the pt smoke?: No Smoking Status: Never smoker Does the pt drink ETOH?: No Does the pt have substance abuse?: No - Immunizations Immunizations are current?: Yes Immunizations: TDAP current <10years - POLST Patient has POLST: No PD ED PE NORMAL - Vitals Vital signs reviewed: Yes - General General: Alert and oriented X 3, No acute distress, Well developed/nourished - Derm Derm: Normal color, Warm and dry, No rash - Extremities Extremities: Other (tender medial antecubital area and toward ulnar side proximal forearm soft tissue. No redness per se. No palpable veins/cords. Not tender in axilla. ) - Neuro Neuro: Alert and oriented X 3, No motor deficit, No sensory deficit Results - Vitals Vitals: Vital Signs - 24 hr 11/07/21 11:03 Temperature 36.1 C L Heart Rate 80 Respiratory 16 Rate Blood Pressure 123/71 O2 Saturation 98 Oxygen O2 Source Room air - Rads (name of study) duplex U/S Radiology: Prelim report reviewed (superficial phlebitis in the area. No deep vein thrombosis. ), See rad report PD MEDICAL DECISION MAKING - ED course Complexity details: reviewed results, considered differential (consider superficial phlebitis versus DVT, also could have had med extravasation at the time and causing still local tissue inflammation, but does not seem tissue necrosis and she was given Compazine/Benadryl/Toradol, not phenergan, so less concerning for tissue injury. ), d/w patient Departure - Departure Disposition: 01 Home, Self Care Clinical Impression: Right forearm pain, Superficial phlebitis Condition: Stable Record reviewed to determine appropriate education?: Yes Instructions: ED Phlebitis Superficial Follow-Up: TESSA FRAZIER DO [Primary Care Provider] - Prescriptions: Naproxen 500 mg PO BID 10 Days #20 tab.sr Comments: The ultrasound shows some inflammation and partial clotting of the superficial veins in the area. The deep veins appear normal with good flow. Superficial phlebitis is treated with heat topically and anti-inflammatories and presume would resolve over the next week or so. Follow-up with your primary care if not resolved over the next week. Return to the ER if you have increasing pain redness or swelling particularly swelling through the hand and lower forearm. I [facility] your [facility] to [facility]. Discharge Date/Time: 11/07/21 13:30
[2021-11-07] MEDS ORDERED: NAPROXEN 250 MG TABLET PO STA (12:03)
--- NOTE | 2021-11-07 13:55 | Ultrasound Report ---
PROCEDURE: Duplex Ext Veins Right INDICATIONS: right antecub/elbow pain post IV TECHNIQUE: Real-time imaging, as well as color and pulse Doppler interrogation, were performed of the lower extr emity deep veins from the inguinal ligament to the popliteal fossa. COMPARISON: None. FINDINGS: The deep veins are normally compressible, and free of intraluminal thrombus. Color and pu lse Doppler demonstrate normal phasic intraluminal flow. There is normal augmentation response to di stal compression maneuver. There is a venous branch in the forearm just distal to the antecubital fossa which drains to the basi lic vein. This segment demonstrates intraluminal echogenic thrombus and noncompressibility. More dist ally, this segment of vein is partially compressible. IMPRESSION: 1. Occlusive superficial venous thrombosis along the radial aspect of the forearm in a branch which w ould extend into the basilic vein. 2. No deep venous thrombosis in the right upper extremity. 3. Preliminary results given by the property staff accountant to the ordering provider immediately following the st udy. Reviewed by: Mary Sanchez MD on 11/07/2021 1:54 PM PDT Approved by: Mary Sanchez MD on 11/07/2021 1:54 PM PDT Station ID: [id number]
== END 2021-11-07 13:30 | disposition home or self-care (01) ==
LOC: ED 10:47
DX: I80.8 Phlebitis and thrombophlebitis of other sites (principal)
CPT/HCPCS: 93971; 99282; 99284; A9270

== ENCOUNTER 2021-12-27 22:00 | Emergency (ER) | payer MEDICAID ==
--- NOTE | 2021-12-28 00:27 | ED Physician Documentation ---
PD HPI Fall - Stated complaint Stated Complaint: FELL DOWN STAIRS - Chief complaint Chief Complaint: Back Pain - History obtained from History obtained from: Patient - History of Present Illness Mechanism of injury: Lost balance Fall distance: Standing position Timing - onset: Enter time (21:45), Today Injury(ies) location: Head, Back Pain level now: 6 Quality of pain: Pain Associated symptoms: No: LOC, AMS, Amnesia Contributing factors: No: Anticoagulated, Intoxicated Similar symptoms before: Has not had sx before Recently seen: Not recently seen - Additional information Additional information: At approximately 9:45 PM tonight, patient was leaving work and walking down stairs towards her car, lost balance and fell down stairs. Denies LOC, c/o mild generalized headache, low back pain. Review of Systems Eyes: reports: Reviewed and negative Cardiac: reports: Reviewed and negative Respiratory: reports: Reviewed and negative GI: reports: Reviewed and negative Skin: reports: Reviewed and negative Musculoskeletal: reports: Back pain. denies: Neck pain, Extremity pain, Joint pain, Extremity swelling, Joint swelling Neurologic: reports: Headache. 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 : Kidney stones HEENT: None Psych: Bipolar disorder Musculoskeletal: None Derm: None - Past Surgical History Past Surgical History: Yes - Present Medications Home Medications: Ambulatory Orders Medication Instructions Recorded Confirmed Gabapentin [Neurontin] 300 mg DAILY 06/20/20 12/27/21 Venlafaxine [Effexor] 37.5 mg PO DAILY 06/20/20 12/27/21 lamoTRIgine [Lamictal] 200 mg PO DAILY 06/20/20 12/27/21 Etonogestrel/Ethinyl Estradiol 1 03/16/21 [Nuvaring Vaginal Ring] Benzonatate [Tessalon] 200 mg PO TID PRN #30 cap 05/03/21 Cetirizine HCl/Pseudoephedrine 1 each PO BID PRN #30 ea 05/03/21 [Zyrtec-D Tablet] Ibuprofen [Motrin] 800 mg PO Q8H PRN #30 tablet 05/03/21 Ondansetron Odt [Zofran] 4 mg TL Q6H PRN #10 tablet 05/03/21 Ondansetron Odt [Zofran] 4 mg TL Q6H PRN #10 tablet 10/18/21 Naproxen 500 mg PO BID 10 Days #20 tab.sr 11/07/21 - Allergies Allergies/Adverse Reactions: Allergies Allergy/AdvReac Type Severity Reaction Status Date / Time amoxicillin Allergy Unknown Verified 12/27/21 22:07 metoclopramide [From Reglan] Allergy Unknown Verified 12/27/21 22:07 tamsulosin [From Flomax] Allergy Unknown Verified 12/27/21 22:07 prochlorperazine AdvReac Anxiety Verified 12/27/21 22:07 [From Compazine] - Social History Does the pt smoke?: No Smoking Status: Never smoker Does the pt drink ETOH?: No Does the pt have substance abuse?: No - Immunizations Immunizations are current?: Yes Immunizations: TDAP current <10years - POLST Patient has POLST: No PD ED PE NORMAL - Vitals Vital signs reviewed: Yes - General General: Alert and oriented X 3, No acute distress, Well developed/nourished - HEENT HEENT: Atraumatic, PERRL, EOMI, Moist mucous membranes - Neck Neck: Supple, no meningeal sign, No bony TTP - Cardiac Cardiac: RRR, No murmur - Respiratory Respiratory: No respiratory distress, Clear bilaterally - Abdomen Abdomen: Soft, Non tender - Back Back: No CVA TTP, No spinal TTP - Neuro Neuro: Alert and oriented X 3, 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, No motor deficit, No sensory deficit Eye Opening: Spontaneous Motor: Obeys Commands Verbal: Oriented GCS Score: 15 Results - Vitals Vitals: Oxygen O2 Source Room air - Rads (name of study) CT head Radiology: Prelim report reviewed, See rad report lumbar xrays Radiology: Prelim report reviewed PD MEDICAL DECISION MAKING - ED course Complexity details: reviewed results, re-evaluated patient, considered differential, d/w patient Departure - Departure Disposition: 01 Home, Self Care Clinical Impression: Fall Qualifiers: Encounter type: initial encounter Qualified Code(s): W19.XXXA - Unspecified fall, initial encounter Head injury Qualifiers: Encounter type: initial encounter Qualified Code(s): S09.90XA - Unspecified injury of head, initial encounter Lumbar sprain Qualifiers: Encounter type: initial encounter Qualified Code(s): S33.5XXA - Sprain of ligaments of lumbar spine, initial encounter Condition: Good Instructions: ED Low Back Pain Injury, ED Head Injury Closed Comments: The CT scan of your head is normal as are the xrays of your lower back. You might have worsening pain over the next 1-2 days, but should improve gradually after that. If at any time the pain becomes severe, or if you develop new and concerning signs/symptoms (such as confusion, visual changes, vomiting), please return to the emergency department Discharge Date/Time: 12/28/21 03:30
--- NOTE | 2021-12-28 02:04 | CT Report ---
PROCEDURE: HEAD WO INDICATIONS: fall, head injury, severe headache TECHNIQUE: Noncontrast 4.5 mm thick angled axial sections acquired from the foramen magnum to the vertex. For r adiation dose reduction, the following was used: automated exposure control, adjustment of mA and/or kV according to patient size. COMPARISON: None. FINDINGS: Image quality: Excellent. CSF spaces: Basal cisterns are patent. No extra-axial fluid collections. Ventricles are normal in size and shape. Brain: No intracranial hemorrhage, mass, or mass effect. Alan-white matter interface appears preser kirby. Skull and face: Calvarium and visualized facial bones are intact, without suspicious lesions. Sinuses: Visualized sinuses and mastoids are clear. IMPRESSION: 1. No acute intracranial abnormality. Reviewed by: Rd Case MD on 12/28/2021 2:03 AM PDT Approved by: Rd Case MD on 12/28/2021 2:03 AM PDT Station ID: [id number]
--- NOTE | 2021-12-28 02:27 | XRAY Report ---
PROCEDURE: Lumbar Spine 2 View INDICATIONS: fall, low back pain TECHNIQUE: 3 views of the lumbar spine were acquired. COMPARISON: None. FINDINGS: Bones: 5 [id number] vertebrae are present. There is normal bony alignment. No vertebral body compression fractures. No evidence of traumatic subluxation. No suspicious bony lesions. Soft tissues: Overlying bowel gas pattern is normal. No suspicious soft tissue calcifications. IMPRESSION: 1. No evidence of fracture or traumatic subluxation. Reviewed by: Rd Case MD on 12/28/2021 2:26 AM PDT Approved by: Rd Case MD on 12/28/2021 2:26 AM PDT Station ID: [id number]
[2021-12-28 03:31] VITALS: BP 123/67
== END 2021-12-28 03:30 | disposition home or self-care (01) ==
LOC: ED 22:00
DX: S09.90XA Unspecified injury of head, initial encounter (principal); S33.5XXA Sprain of ligaments of lumbar spine, initial encounter; W10.9XXA Fall (on) (from) unspecified stairs and steps, initial encounter; Y93.89 Activity, other specified; Y92.511 Restaurant or cafe as the place of occurrence of the external cause; Y99.0 Civilian activity done for income or pay
CPT/HCPCS: 99282; 99284

== ENCOUNTER 2022-01-02 21:02 | Emergency (ER) | payer MEDICAID ==
[2022-01-02 21:26] LABS: BILIRUBIN,URINE NEGATIVE (NEGATIVE); GLUCOSE, URINE (UA) NEGATIVE (NEGATIVE); KETONES,URINE (UA) TRACE mg/dL (NEGATIVE); LEUKOCYTE ESTERASE, URINE NEGATIVE (NEGATIVE); NITRITE,URINE NEGATIVE (NEGATIVE); OCCULT BLOOD,URINE LARGE (NEGATIVE); PROTEIN,URINE TRACE mg/dL (NEGATIVE); UROBILINOGEN,URINE 0.2 (NORMAL) E.U./dL (NORMAL)
[2022-01-02 21:29] LABS: CLARITY,URINE CLEAR (CLEAR); HCG UR QUAL NEGATIVE
[2022-01-02] MEDS ORDERED: MORPHINE 2 MG/ML CARPUJECT IVP STA ×2 (21:33→23:02)
[2022-01-02] MEDS ORDERED: SODIUM CHLORIDE 0.9% 1,000 ML IV STA (21:33)
[2022-01-02] MEDS ORDERED: ONDANSETRON 4 MG/2 ML VIAL IVP STA (21:33)
--- NOTE | 2022-01-02 21:36 | ED Physician Documentation ---
PD HPI ABD PAIN - Stated complaint Stated Complaint: KIDNEY PAIN - Chief complaint Chief Complaint: Abd Pain - History obtained from History obtained from: Patient - Additional information Additional information: Patient presenting for evaluation of right flank pain and dysuria for 3 days. Patient reports her pain is sharp and throbbing. Nothing makes it better or worse. It radiates to the umbilical region. She reports a history of kidney stones and believes this feels similar. She denies fever, chest pain, difficulty breathing, vomiting, diarrhea. Review of Systems Constitutional: denies: Fever Nose: denies: Congestion Throat: denies: Sore throat Cardiac: denies: Chest pain / pressure Respiratory: denies: Dyspnea GI: denies: Abdominal Pain, Vomiting : reports: Dysuria. 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 : Kidney stones HEENT: None Psych: Bipolar disorder Musculoskeletal: None Derm: None - Past Surgical History Past Surgical History: Yes - Present Medications Home Medications: Ambulatory Orders Medication Instructions Recorded Confirmed Gabapentin [Neurontin] 300 mg DAILY 06/20/20 12/27/21 Venlafaxine [Effexor] 37.5 mg PO DAILY 06/20/20 12/27/21 lamoTRIgine [Lamictal] 200 mg PO DAILY 06/20/20 12/27/21 Etonogestrel/Ethinyl Estradiol 1 03/16/21 [Nuvaring Vaginal Ring] Benzonatate [Tessalon] 200 mg PO TID PRN #30 cap 05/03/21 Cetirizine HCl/Pseudoephedrine 1 each PO BID PRN #30 ea 05/03/21 [Zyrtec-D Tablet] Ibuprofen [Motrin] 800 mg PO Q8H PRN #30 tablet 05/03/21 Ondansetron Odt [Zofran] 4 mg TL Q6H PRN #10 tablet 05/03/21 Ondansetron Odt [Zofran] 4 mg TL Q6H PRN #10 tablet 10/18/21 Naproxen 500 mg PO BID 10 Days #20 tab.sr 11/07/21 Nitrofurantoin [Macrobid] 1 cap PO BID #10 cap 01/03/22 - Allergies Allergies/Adverse Reactions: Allergies Allergy/AdvReac Type Severity Reaction Status Date / Time amoxicillin Allergy Unknown Verified 01/02/22 21:12 metoclopramide [From Reglan] Allergy Unknown Verified 01/02/22 21:12 tamsulosin [From Flomax] Allergy Unknown Verified 01/02/22 21:12 prochlorperazine AdvReac Anxiety Verified 01/02/22 21:12 [From Compazine] - Social History Does the pt smoke?: No Smoking Status: Never smoker Does the pt drink ETOH?: No Does the pt have substance abuse?: No - Immunizations Immunizations are current?: Yes Immunizations: TDAP current <10years - POLST Patient has POLST: No PD ED PE NORMAL - General General: Alert and oriented X 3, No acute distress, Well developed/nourished - HEENT HEENT: Atraumatic, Moist mucous membranes - Neck Neck: Supple, no meningeal sign - Cardiac Cardiac: RRR, No murmur, Strong equal pulses - Respiratory Respiratory: No respiratory distress, Clear bilaterally - Abdomen Abdomen: Normal bowel sounds, Soft, Non tender, Non distended - Back Back: No CVA TTP, No spinal TTP - Derm Derm: Warm and dry - Extremities Extremities: No edema Results - Vitals Vitals: Vital Signs - 24 hr 01/02/22 01/02/22 01/03/22 21:09 23:16 00:34 Temperature 36.2 C L 36.5 C Heart Rate 73 58 L 61 Respiratory 18 17 16 Rate Blood Pressure 114/67 120/79 121/68 O2 Saturation 96 99 99 Oxygen O2 Source Room air - Labs Labs: Laboratory Tests 01/02/22 01/02/22 01/02/22 21:16 21:40 21:40 WBC 9.5 RBC 4.15 L Hgb 12.8 Hct 39.5 MCV 95.2 MCH 30.8 MCHC 32.4 RDW 12.9 Plt Count 295 MPV 9.8 Neut # (Auto) 6.5 Lymph # (Auto) 2.6 [place] # (Auto) 0.3 Eos # (Auto) 0.0 Baso # (Auto) 0.1 Absolute Nucleated RBC 0.00 Nucleated RBC % 0.0 Sodium 138 Potassium 3.9 Chloride 105 Carbon Dioxide 24 Anion Gap 9.0 BUN 12 Creatinine 0.7 Estimated GFR (MDRD) 100 Glucose 82 Calcium 8.9 Total Bilirubin 0.3 AST 18 ALT 19 Alkaline Phosphatase 56 Total Protein 7.0 Albumin 3.7 Globulin 3.3 Albumin/Globulin Ratio 1.1 Urine Color YELLOW Urine Clarity CLEAR Urine pH 6.0 Ur Specific [place] >=1.030 H Urine Protein TRACE Urine Glucose (UA) NEGATIVE Urine Ketones TRACE Urine Occult Blood LARGE H Urine Nitrite NEGATIVE Urine Bilirubin NEGATIVE Urine Urobilinogen 0.2 (NORMAL) Ur Leukocyte Esterase NEGATIVE Urine RBC TNTC H Urine WBC 0-3 Ur Squamous Epith Cells RARE Squamous Urine Bacteria Rare Ur Microscopic Review INDICATED Urine Culture Comments NOT INDICATED Urine HCG, Qual NEGATIVE PD MEDICAL DECISION MAKING - ED course Complexity details: reviewed results, re-evaluated patient, d/w patient ED course: Patient presenting for evaluation of right flank pain and dysuria. Has a history of stones. Vital signs are stable. Labs reviewed without significant findings. Urine with blood. CT scan with nephrolithiasis but no ureter stones. Patient is feeling better after medications here. Abdominal exam remained benign.No pelvic tenderness. Given dysuria and presence of blood in urine we will treat for urinary tract infection. Patient is advised though that she needs follow-up with her primary care doctor and is aware of the presence of the blood in her urine.She is aware of return precautions. Departure - Departure Disposition: 01 Home, Self Care Clinical Impression: Dysuria Condition: Stable Instructions: ED Dysuria Uncertain Cause Follow-Up: TESSA FRAZIER DO [Primary Care Provider] - Prescriptions: Nitrofurantoin [Macrobid] 1 cap PO BID #10 cap Comments: Your urine showed blood which could be from an infection. Your labs were otherwise normal. Your CT scan showed stones inside of the kidneys but not in the ureters which is the tube that connects the kidney to the bladder. Stones in the kidney Usually do not cause pain until the stones are moving out of the kidney. Because of your symptoms and the blood in your urine I have started you on an antibiotic in case there is an infection. Please have close follow-up with your primary care doctor to ensure that your symptoms and the blood in the urine has resolved.If you have any worsening symptoms please return to the emergency department. I have sent your prescription to [facility]. Discharge Date/Time: 01/03/22 00:34
[2022-01-02 21:50] LABS: BASOPHILS # (AUTO) 0.1 10^3/uL (0.0-0.1); BASOPHILS % (AUTO) 0.7 %; EOSINOPHILS % (AUTO) 0.3 %; HCT - HEMATOCRIT 39.5 % (37.0-47.0); HGB - HEMOGLOBIN 12.8 g/dL (12.0-16.0); LYMPHOCYTES # (AUTO) 2.6 10^3/uL (1.5-3.5); LYMPHOCYTES % (AUTO) 27.4 %; MEAN CORPUSCULAR HEMOGLOBIN 30.8 pg (27.0-31.0); MEAN CORPUSCULAR HGB CONC 32.4 g/dL (32.0-36.0); MEAN CORPUSCULAR VOLUME 95.2 fL (81.0-99.0); MEAN PLATELET VOLUME 9.8 fL (7.9-10.8); MONOCYTES # (AUTO) 0.3 10^3/uL (0.0-1.0); MONOCYTES % (AUTO) 3.1 %; NEUTROPHILS # (AUTO) 6.5 10^3/uL (1.5-6.6); NEUTROPHILS % (AUTO) 68.2 %; PLT - PLATELET COUNT 295 10^3/uL (130-450); RED BLOOD COUNT 4.15 10^6/uL (4.20-5.40); RED CELL DISTRIBUTION WIDTH 12.9 % (12.0-15.0); WHITE BLOOD COUNT 9.5 x10^3/uL (4.8-10.8)
[2022-01-02 21:56] LABS: ALBUMIN 3.7 g/dL (3.2-5.5); ALBUMIN/GLOBULIN RATIO 1.1 (1.0-2.2); BILIRUBIN,TOTAL 0.3 mg/dL (0.2-1.0); CALCIUM 8.9 mg/dL (8.5-10.3); CREATININE 0.7 mg/dL (0.4-1.0); POTASSIUM 3.9 mmol/L (3.5-5.0)
[2022-01-02 22:25] LABS: BACTERIA,URINE Rare /HPF (None Seen); RBC,URINE TNTC /HPF (0-5); SQUAMOUS EPITHELIAL CELL,UR RARE Squamous (<= Few); WBC,URINE 0-3 /HPF (0-5)
[2022-01-02] MEDS ORDERED: KETOROLAC 30 MG/ML VIAL IVP STA (23:01)
--- NOTE | 2022-01-02 23:55 | CT Report ---
PROCEDURE: Abdomen/Pelvis WO INDICATIONS: R flank pain TECHNIQUE: Noncontrast 5 mm thick sections acquired from the diaphragms to the symphysis. 5 mm coronal and sagi ttal reformats were then performed. For radiation dose reduction, the following was used: automated exposure control, adjustment of mA and/or kV according to patient size. COMPARISON: CT abdomen pelvis 04/11/2021. FINDINGS: Image quality: Excellent. Lung bases:There is patchy bilateral groundglass opacities are redemonstrated within the lung bases Heart: Heart is normal in size. There is a small hiatal hernia. URINARY: Right Kidney and Ureter: There is a nonobstructing stone within the right renal pelvis measuring up to 0.5 cm with attenuation values of approximately 300-400 Hounsfield units. No hydronephrosis. No hy droureter. Left Kidney and Ureter: There are 2 nonobstructing left renal stones, with the largest stone measur ing up to 0.5 cm. No hydronephrosis. No hydroureter. Bladder: Normal wall thickness. No stones. ABDOMEN: Liver: Noncontrast evaluation of the liver demonstrates no discrete mass. Gallbladder: Within normal limits without calcified gallstones. Biliary ducts: No biliary ductal dilatation. Pancreas: Unremarkable. Spleen: Normal in size. Adrenal Glands: No adrenal nodules. Stomach and Bowel: Stomach, small bowel loops, and colon are normal in caliber and wall thickness. T he appendix is normal in appearance. There is colonic diverticulosis without acute diverticulitis. Peritoneum: No abnormal intraperitoneal fluid. No free air. Ventral Wall: No hernia. Abdominal Nodes: No retroperitoneal or mesenteric adenopathy by size criteria. Vessels: Aorta and inferior vena cava are normal in size. PELVIS: Pelvic Organs: Unremarkable. Pelvic Nodes: No enlarged lymph nodes. Miscellaneous: No inguinal hernias identified. Bones: Visualized osseous structures demonstrate no suspicious focal lesions. IMPRESSION: 1. Bilateral nephrolithiasis without evidence of obstructive uropathy. 2. No evidence of appendicitis. Reviewed by: Rd Case MD on 01/02/2022 11:53 PM PDT Approved by: Rd Case MD on 01/02/2022 11:53 PM PDT Station ID: [id number]
[2022-01-03] MEDS ORDERED: NITROFURANTOIN MACRO 100 MG CAPSULE PO STA (00:21)
[2022-01-03 00:35] VITALS: BP 121/68
== END 2022-01-03 00:34 | disposition home or self-care (01) ==
LOC: ED 21:02
DX: R30.0 Dysuria (principal); R31.9 Hematuria, unspecified; N20.0 Calculus of kidney
CPT/HCPCS: 36415; 74176; 80053; 81001; 81025; 85025; 96374; 96375; 96376; 99284; A9270; 81003; 87086

== ENCOUNTER 2022-03-20 18:28 | Outpatient (CLI) | payer MEDICAID | END 2022-03-20 18:29 | disposition critical access hospital (66) | LOC: EMS 18:28 | DX: R10.9 Unspecified abdominal pain (principal); M54.9 Dorsalgia, unspecified | CPT/HCPCS: A0425; A0427; A0999 ==

== ENCOUNTER 2022-03-20 18:48 | Emergency (ER) | payer MEDICAID ==
--- NOTE | 2022-03-20 19:20 | ED Physician Documentation ---
PD HPI ABD PAIN - Stated complaint Stated Complaint: R FLANK PAIN - Chief complaint Chief Complaint: Abd Pain - History obtained from History obtained from: Patient - Additional information Additional information: 26-year-old woman with history of recurrent ureterolithiasis presents with sudden onset right flank pain starting at 4 PM today consistent with prior episodes of kidney stones. Pain is severe and radiating towards the right lower quadrant. She is nauseous and vomiting. Subsequent to the pain starting she took some Magic mushrooms in the hope that it would help her pain, it did not. 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 : Kidney stones HEENT: None Psych: Bipolar disorder Musculoskeletal: None Derm: None - Past Surgical History Past Surgical History: Yes - Present Medications Home Medications: Ambulatory Orders Medication Instructions Recorded Confirmed Gabapentin [Neurontin] 300 mg DAILY 06/20/20 12/27/21 Venlafaxine [Effexor] 37.5 mg PO DAILY 06/20/20 12/27/21 lamoTRIgine [Lamictal] 200 mg PO DAILY 06/20/20 12/27/21 Etonogestrel/Ethinyl Estradiol 1 03/16/21 [Nuvaring Vaginal Ring] Benzonatate [Tessalon] 200 mg PO TID PRN #30 cap 05/03/21 Cetirizine HCl/Pseudoephedrine 1 each PO BID PRN #30 ea 05/03/21 [Zyrtec-D Tablet] Ibuprofen [Motrin] 800 mg PO Q8H PRN #30 tablet 05/03/21 Ondansetron Odt [Zofran] 4 mg TL Q6H PRN #10 tablet 05/03/21 Ondansetron Odt [Zofran] 4 mg TL Q6H PRN #10 tablet 10/18/21 Naproxen 500 mg PO BID 10 Days #20 tab.sr 11/07/21 Nitrofurantoin [Macrobid] 1 cap PO BID #10 cap 01/03/22 Ondansetron Odt [Zofran] 4 mg TL Q6H PRN #10 tablet 03/20/22 Oxycodone HCl/Acetaminophen 1 - 2 each PO Q6H PRN #14 tablet 03/20/22 [Percocet 5-325 mg Tablet] - Allergies Allergies/Adverse Reactions: Allergies Allergy/AdvReac Type Severity Reaction Status Date / Time amoxicillin Allergy Unknown Verified 01/02/22 21:12 ketorolac [From Toradol] Allergy Rash Verified 03/20/22 20:50 metoclopramide [From Reglan] Allergy Unknown Verified 01/02/22 21:12 tamsulosin [From Flomax] Allergy Unknown Verified 01/02/22 21:12 prochlorperazine AdvReac Anxiety Verified 01/02/22 21:12 [From Compazine] - Social History Does the pt smoke?: No Smoking Status: Never smoker Does the pt drink ETOH?: No Does the pt have substance abuse?: No - Immunizations Immunizations are current?: Yes Immunizations: TDAP current <10years - POLST Patient has POLST: No PD ED PE NORMAL - Vitals Vital signs reviewed: Yes - General General: Alert and oriented X 3, Other (She is crying, anxious) - Abdomen Abdomen: Normal bowel sounds, Soft, Non tender - Back Back: No CVA TTP, No spinal TTP - Derm Derm: Normal color, Warm and dry - Extremities Extremities: No edema, No calf tenderness / cord - Neuro Neuro: Alert and oriented X 3, Normal speech Results - Vitals Vitals: Vital Signs - 24 hr 03/20/22 03/20/22 03/20/22 19:01 21:04 21:35 Temperature 36.6 C Heart Rate 57 L 58 L 54 L Respiratory 18 18 16 Rate Blood Pressure 129/68 124/73 113/74 O2 Saturation 100 96 98 03/20/22 22:32 Temperature 36.9 C Heart Rate 51 L Respiratory 16 Rate Blood Pressure 152/92 H O2 Saturation 97 Oxygen O2 Source Room air - Labs Labs: Laboratory Tests 03/20/22 03/20/22 03/20/22 18:57 18:57 18:57 WBC 13.5 H RBC 4.38 Hgb 13.8 Hct 42.0 MCV 95.9 MCH 31.5 H MCHC 32.9 RDW 13.4 Plt Count 329 MPV 10.9 H Neut # (Auto) 8.8 H Lymph # (Auto) 3.9 H [place] # (Auto) 0.7 Eos # (Auto) 0.0 Baso # (Auto) 0.1 Absolute Nucleated RBC 0.00 Nucleated RBC % 0.0 Sodium 140 Potassium 2.8 L Chloride 114 H Carbon Dioxide 16 L Anion Gap 10.0 BUN 8 Creatinine 0.6 Estimated GFR (MDRD) 119 Glucose 91 Calcium 6.9 L Serum HCG, Qual NEGATIVE Urine Color Urine Clarity Urine pH Ur Specific [place] Urine Protein Urine Glucose (UA) Urine Ketones Urine Occult Blood Urine Nitrite Urine Bilirubin Urine Urobilinogen Ur Leukocyte Esterase Urine RBC Urine WBC Ur Squamous Epith Cells Urine Bacteria Ur Microscopic Review Urine Culture Comments Urine Opiates Screen Ur Oxycodone Screen Urine Methadone Screen Ur Propoxyphene Screen Ur Barbiturates Screen Ur Tricyclics Screen Ur Phencyclidine Scrn Ur Amphetamine Screen U Methamphetamines Scrn U Benzodiazepines Scrn Urine Cocaine Screen U Cannabinoids Screen 03/20/22 03/20/22 19:45 19:45 WBC RBC Hgb Hct MCV MCH MCHC RDW Plt Count MPV Neut # (Auto) Lymph # (Auto) [place] # (Auto) Eos # (Auto) Baso # (Auto) Absolute Nucleated RBC Nucleated RBC % Sodium Potassium Chloride Carbon Dioxide Anion Gap BUN Creatinine Estimated GFR (MDRD) Glucose Calcium Serum HCG, Qual Urine Color YELLOW Urine Clarity HAZY Urine pH 6.0 Ur Specific [place] >=1.030 H Urine Protein 30 H Urine Glucose (UA) NEGATIVE Urine Ketones 15 H Urine Occult Blood LARGE H Urine Nitrite NEGATIVE Urine Bilirubin NEGATIVE Urine Urobilinogen 0.2 (NORMAL) Ur Leukocyte Esterase NEGATIVE Urine RBC TNTC H Urine WBC 0-3 Ur Squamous Epith Cells FEW Squamous Urine Bacteria Few Ur Microscopic Review INDICATED Urine Culture Comments NOT INDICATED Urine Opiates Screen POSITIVE H Ur Oxycodone Screen NEGATIVE Urine Methadone Screen NEGATIVE Ur Propoxyphene Screen NEGATIVE Ur Barbiturates Screen NEGATIVE Ur Tricyclics Screen NEGATIVE Ur Phencyclidine Scrn NEGATIVE Ur Amphetamine Screen NEGATIVE U Methamphetamines Scrn NEGATIVE U Benzodiazepines Scrn NEGATIVE Urine Cocaine Screen NEGATIVE U Cannabinoids Screen POSITIVE H PD MEDICAL DECISION MAKING - ED course ED course: 26-year-old woman with recurrent renal colic presents in profound pain related to renal colic but also anxiety, potentially related to the Magic mushroom she consumed just prior to arrival. She was medicated initially with 1 mg of lorazepam, 1 mg of hydromorphone, and 4 mg of Zofran. Subsequent to this she was still having a lot of pain and I had ordered Tylenol and Toradol. She took the Tylenol but refused the Toradol stating that she was allergic. I noted that she had had Toradol several times here in the past and queried what her allergy was, she says that it makes her itchy. 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 Subsequently was given 2 mg of IV Dilaudid, at that point she looks much more comfortable but her pain was still a "9" down from a "10" on arrival. We will trial IV lidocaine. Care to Dr Leroy at [facility] of shift pending CT read and reeval Departure - Departure Disposition: 01 Home, Self Care Clinical Impression: Right ureteral stone Condition: Good Record reviewed to determine appropriate education?: Yes Instructions: ED Stone Renal W Colic Prescriptions: Oxycodone HCl/Acetaminophen [Percocet 5-325 mg Tablet] 1 - 2 each PO Q6H PRN #14 tablet PRN Reason: pain Ondansetron Odt [Zofran] 4 mg TL Q6H PRN #10 tablet PRN Reason: Nausea / Vomiting Comments: Follow-up with your urologist, next available appointment regarding the 5mm kidney stone on the right that we found tonight. I have sent prescriptions to [facility] in [place].If you have any worsening symptoms such as fever, increased pain or any new concerns please return to the ER. I am prescribing a short course of narcotic pain medication for you. These are potentially dangerous and addictive medications that should be used carefully. These medications may constipate you. Take an [id number]-[id number] stool softener (docusate) twice daily with plenty of water while taking these medications. If you go 24 hours without a bowel movement, take [id number] miralax, per package instructions. Do not drink or drive while taking these medications. If you received narcotic or sedating medications while in the emergency department, do not drive for 24 hours. Store this medication in a safe, secure place and out of reach of children. It is a violation of federal law to give or sell this medication to another person or to use in a manner other than prescribed. The ED will not refill narcotic prescriptions, including prescriptions lost or stolen. To dispose of unwanted medications: 1. [employer] [facility] at [address] in [place] has a medication drop box. They accept prescription medications (in pill form) Thursday through Thursday 9:00 a.m. to 5:00 p.m. 2. The [employer] [facility] [employer] [facility] accepts prescription medications (in pill form only) for disposal year round. Call for more information. 3. Contact the [facility] for the next [facility] sponsored prescription drug collection event. , [phone], or [phone]; Note that many narcotic pain relievers also contain Tylenol/acetaminophen. Please ensure that your total dose of acetaminophen from all sources does not exceed 3 g (3000 mg) per day. Discharge Date/Time: 03/20/22 22:32
[2022-03-20 19:23] LABS: BASOPHILS # (AUTO) 0.1 10^3/uL (0.0-0.1); BASOPHILS % (AUTO) 0.7 %; HGB - HEMOGLOBIN 13.8 g/dL (12.0-16.0); LYMPHOCYTES # (AUTO) 3.9 10^3/uL (1.5-3.5); LYMPHOCYTES % (AUTO) 28.8 %; MEAN CORPUSCULAR HEMOGLOBIN 31.5 pg (27.0-31.0); MEAN CORPUSCULAR HGB CONC 32.9 g/dL (32.0-36.0); MEAN CORPUSCULAR VOLUME 95.9 fL (81.0-99.0); MEAN PLATELET VOLUME 10.9 fL (7.9-10.8); MONOCYTES # (AUTO) 0.7 10^3/uL (0.0-1.0); MONOCYTES % (AUTO) 5.2 %; NEUTROPHILS # (AUTO) 8.8 10^3/uL (1.5-6.6); PLT - PLATELET COUNT 329 10^3/uL (130-450); RED BLOOD COUNT 4.38 10^6/uL (4.20-5.40); RED CELL DISTRIBUTION WIDTH 13.4 % (12.0-15.0); WHITE BLOOD COUNT 13.5 x10^3/uL (4.8-10.8)
[2022-03-20] MEDS: HYDROmorphone 1 MG/ML CARPUJECT IVP STA ×2 (19:24→21:10)
[2022-03-20] MEDS: LORazepam 2 MG/ML VIAL IVP STA (19:24)
[2022-03-20] MEDS: ONDANSETRON 4 MG/2 ML VIAL IVP STA ×2 (19:25→20:49)
[2022-03-20 19:29] LABS: CALCIUM 6.9 mg/dL (8.5-10.3); CREATININE 0.6 mg/dL (0.4-1.0); POTASSIUM 2.8 mmol/L (3.5-5.0)
[2022-03-20] MEDS: SODIUM CHLORIDE 0.9% 1,000 ML IV STA (19:30)
[2022-03-20 20:01] LABS: HCG,QUALITATIVE BLOOD NEGATIVE
[2022-03-20 20:02] LABS: MUDS CUTOFF CONCENTRATIONS CUTOFF CONC BELOW:
[2022-03-20 20:06] LABS: BILIRUBIN,URINE NEGATIVE (NEGATIVE); CLARITY,URINE HAZY (CLEAR); GLUCOSE, URINE (UA) NEGATIVE (NEGATIVE); KETONES,URINE (UA) 15 mg/dL (NEGATIVE); LEUKOCYTE ESTERASE, URINE NEGATIVE (NEGATIVE); NITRITE,URINE NEGATIVE (NEGATIVE); OCCULT BLOOD,URINE LARGE (NEGATIVE); PROTEIN,URINE 30 mg/dL (NEGATIVE); UROBILINOGEN,URINE 0.2 (NORMAL) E.U./dL (NORMAL)
[2022-03-20] MEDS: POTASSIUM CHLOR 10 MEQ/100 ML 10 MEQ/100 ML BAG IV STA (20:12)
[2022-03-20] MEDS: POTASSIUM CHLORIDE 20 MEQ TABLET PO STA (20:12)
[2022-03-20 20:17] LABS: BACTERIA,URINE Few /HPF (None Seen); RBC,URINE TNTC /HPF (0-5); SQUAMOUS EPITHELIAL CELL,UR FEW Squamous (<= Few); WBC,URINE 0-3 /HPF (0-5)
[2022-03-20 20:18] LABS: AMPHETAMINE SCREEN,URINE NEGATIVE (NEGATIVE); BARBITURATE SCREEN,UR NEGATIVE (NEGATIVE); BENZODIAZEPINES SCREEN, URINE NEGATIVE (NEGATIVE); COCAINE SCREEN URINE NEGATIVE (NEGATIVE); METHADONE SCREEN, URINE NEGATIVE (NEGATIVE); METHAMPHETAMINES SCREEN, URINE NEGATIVE (NEGATIVE); OPIATE SCREEN, URINE POSITIVE (NEGATIVE); OXYCODONE SCREEN, URINE NEGATIVE (NEGATIVE); PROPOXYPHENE SCREEN, URINE NEGATIVE (NEGATIVE); THC CANNABINOID SCREEN, URINE POSITIVE (NEGATIVE); TRICYCLIC ANTIDEPRESSANT,URINE NEGATIVE (NEGATIVE)
[2022-03-20] MEDS: ACETAMINOPHEN 500 MG TABLET PO STA (20:48)
[2022-03-20] MEDS: KETOROLAC 15 MG/ML VIAL IVP STA (20:48)
[2022-03-20] MEDS ORDERED: LIDOCAINE-MPF 2% 5 ML VIAL ONE (21:29)
[2022-03-20] MEDS: LIDOCAINE-MPF 2% 7.5 ML in SODIUM CHLORIDE 0.9% 50 ML IV STA (21:33)
[2022-03-20] MEDS: CALCIUM CARBONATE CHEW 500 MG TABLET PO STA (21:54)
--- NOTE | 2022-03-20 22:01 | CT Report ---
PROCEDURE: ABDOMEN/PELVIS WO INDICATIONS: R flank pain TECHNIQUE: Noncontrast 5 mm thick sections acquired from the diaphragms to the symphysis. 5 mm coronal and sagi ttal reformats were then performed. For radiation dose reduction, the following was used: automated exposure control, adjustment of mA and/or kV according to patient size. COMPARISON: CT abdomen pelvis 01/02/2022, 04/11/2021. FINDINGS: Image quality: Excellent. Lung bases:Visualized lung bases are clear. Heart: Heart is normal in size. There is a small hiatal hernia. URINARY: Right Kidney and Ureter: There is an obstructing urinary stone at the right ureteral pelvic junction measuring up to 0.5 cm with attenuation values of approximately 500-600 Hounsfield units. There is a ssociated moderate right hydronephrosis with minimal perinephric stranding. The ureter is nondistende d distal to the stone. No additional renal stones identified. Left Kidney and Ureter: There are 2 small nonobstructing left renal stones, with the largest stone measuring up to 0.4 cm. No hydronephrosis. No hydroureter. Bladder: Normal wall thickness. No stones. ABDOMEN: Liver: Noncontrast evaluation of the liver demonstrates no discrete mass. Gallbladder: Within normal limits without calcified gallstones. Biliary ducts: No biliary ductal dilatation. Pancreas: Unremarkable. Spleen: Normal in size. Adrenal Glands: No adrenal nodules. Stomach and Bowel: Stomach, small bowel loops, and colon are normal in caliber and wall thickness. T he appendix is normal in appearance. Peritoneum: No abnormal intraperitoneal fluid. No free air. Ventral Wall: No hernia. Abdominal Nodes: No retroperitoneal or mesenteric adenopathy by size criteria. Vessels: Aorta and inferior vena cava are normal in size. PELVIS: Pelvic Organs: Unremarkable. Pelvic Nodes: No enlarged lymph nodes. Miscellaneous: No inguinal hernias identified. Bones: Visualized osseous structures demonstrate no suspicious focal lesions. IMPRESSION: 1. Obstructing urinary stone at the right UPJ with associated moderate right hydronephrosis. 2. Left nephrolithiasis without associated obstructive uropathy. Reviewed by: Rd Vu MD on 03/20/2022 10:00 PM PST Approved by: Rd Vu MD on 03/20/2022 10:00 PM PST Station ID: [id number]
[2022-03-20] MEDS: oxyCODONE/ACET 5/325 Prepack 4 PO STA (22:23)
[2022-03-20] MEDS ORDERED: ONDANSETRON ODT 4 MG Prepack 2 TL PRN (22:25)
--- NOTE | 2022-03-20 22:28 | ED Physician Documentation ---
ED Addendum - Addendum Addendum: 03/20/22 22:26Patient signed out to me by Dr. Guerrero Pending results of CT scan. Reviewed findings of CT With a stone at the right ureteropelvic junction measuring 5 mm. Patient has normal renal function and does not appear septic. Patient has seen a urologist through [facility] In the past but it has been several years.Her pain appears currently controlled. She reports an allergy to Flomax with chest pain and shortness of breath in the past.Discussed continued management with pain medication and nausea medications as well as hydration. Patient advised on strict return precautions for any worsening symptoms. Departure - Departure Disposition: 01 Home, Self Care Clinical Impression: Right ureteral stone Condition: Good Instructions: ED Stone Renal W Colic Prescriptions: Oxycodone HCl/Acetaminophen [Percocet 5-325 mg Tablet] 1 - 2 each PO Q6H PRN #14 tablet PRN Reason: pain Ondansetron Odt [Zofran] 4 mg TL Q6H PRN #10 tablet PRN Reason: Nausea / Vomiting Comments: Follow-up with your urologist, next available appointment regarding the 5mm kidney stone on the right that we found tonight. I have sent prescriptions to [facility] in [place].If you have any worsening symptoms such as fever, increased pain or any new concerns please return to the ER. I am prescribing a short course of narcotic pain medication for you. These are potentially dangerous and addictive medications that should be used carefully. These medications may constipate you. Take an cehx-mmw-sksqnnf stool softener (docusate) twice daily with plenty of water while taking these medications. If you go 24 hours without a bowel movement, take mhss-mwt-uxyutzk miralax, per package instructions. Do not drink or drive while taking these medications. If you received narcotic or sedating medications while in the emergency department, do not drive for 24 hours. Store this medication in a safe, secure place and out of reach of children. It is a violation of federal law to give or sell this medication to another person or to use in a manner other than prescribed. The ED will not refill narcotic prescriptions, including prescriptions lost or stolen. To dispose of unwanted medications: 1. [facility] at [address] in [place] has a medication drop box. They accept prescription medications (in pill form) Thursday through Thursday 9:00 a.m. to 5:00 p.m. 2. The [facility] [employer] accepts prescription medications (in pill form only) for disposal year round. Call for more information. 3. Contact the [facility] for the next [facility] sponsored prescription drug collection event. , [phone], or x7310; Note that many narcotic pain relievers also contain Tylenol/acetaminophen. Please ensure that your total dose of acetaminophen from all sources does not exceed 3 g (3000 mg) per day. Discharge Date/Time: 03/20/22 22:32
[2022-03-20 22:33] VITALS: BP 152/92
== END 2022-03-20 22:32 | disposition home or self-care (01) ==
LOC: EDUNIT# → ED 18:48
DX: R10.31 Right lower quadrant pain (principal); N13.2 Hydronephrosis with renal and ureteral calculous obstruction
CPT/HCPCS: 36415; 74176; 80048; 80306; 81001; 84703; 85025; 96361; 96374; 96375; 96376; 99284; A9270; J1170; J2060; J7040; 81003; 87086

== ENCOUNTER 2022-04-25 19:31 | Emergency (ER) | payer MEDICAID ==
[2022-04-25 20:00] LABS: BASOPHILS # (AUTO) 0.1 10^3/uL (0.0-0.1); BASOPHILS % (AUTO) 0.7 %; HCT - HEMATOCRIT 42.2 % (37.0-47.0); HGB - HEMOGLOBIN 13.7 g/dL (12.0-16.0); LYMPHOCYTES # (AUTO) 3.7 10^3/uL (1.5-3.5); LYMPHOCYTES % (AUTO) 44.8 %; MEAN CORPUSCULAR HEMOGLOBIN 31.1 pg (27.0-31.0); MEAN CORPUSCULAR HGB CONC 32.5 g/dL (32.0-36.0); MEAN CORPUSCULAR VOLUME 95.9 fL (81.0-99.0); MEAN PLATELET VOLUME 9.9 fL (7.9-10.8); MONOCYTES # (AUTO) 0.5 10^3/uL (0.0-1.0); MONOCYTES % (AUTO) 6.4 %; NEUTROPHILS # (AUTO) 3.9 10^3/uL (1.5-6.6); NEUTROPHILS % (AUTO) 47.9 %; PLT - PLATELET COUNT 310 10^3/uL (130-450); RED CELL DISTRIBUTION WIDTH 13.3 % (12.0-15.0); WHITE BLOOD COUNT 8.3 x10^3/uL (4.8-10.8)
[2022-04-25 20:12] LABS: ALBUMIN 3.7 g/dL (3.2-5.5); BILIRUBIN,TOTAL 0.3 mg/dL (0.2-1.0); CALCIUM 9.3 mg/dL (8.5-10.3); CREATININE 0.7 mg/dL (0.4-1.0); POTASSIUM 3.6 mmol/L (3.5-5.0); TOTAL PROTEIN 7.3 g/dL (6.7-8.2)
[2022-04-25] MEDS ORDERED: HYDROmorphone 1 MG/ML CARPUJECT IM STA (20:25)
[2022-04-25] MEDS ORDERED: KETOROLAC 30 MG/ML VIAL IM STA (20:25)
[2022-04-25] MEDS ORDERED: ONDANSETRON ODT 4 MG TABLET TL STA (20:26)
[2022-04-25] MEDS ORDERED: diphenhydrAMINE INJ 50 MG/ML VIAL IM STA (20:26)
--- NOTE | 2022-04-25 20:27 | ED Physician Documentation ---
PD HPI ABD PAIN - Stated complaint Stated Complaint: FEMALE - Chief complaint Chief Complaint: Abd Pain - History obtained from History obtained from: Patient - History of Present Illness Timing - onset: Enter time (16:00), Today Timing - details: Abrupt onset Pain level now: 9 Quality: Pain Location: RUQ Radiation: Right flank Improved by: Other (nothing) Worsened by: Other (no exacerbating factors) Associated symptoms: Nausea. No: Fever, Vomiting, Diarrhea, Constipation Similar symptoms before: Diagnosis (renal colic) Recently seen: Emergency Dept - Additional information Additional information: HPI from patient. She arrives to the emergency department by private vehicle, states she was driven to ER by her brother and her brother is going to be driving her home. Patient complains of right flank pain with nausea but no vomiting, onset 4 PM this afternoon while at rest. The pain waxes and wanes without any exacerbating or ameliorating factors. She says this pain is very familiar to her as she has been "in and out of hospitals" for pain associated with both kidney stones as well as kidney infections. She says she recently completed a course of Macrobid for UTI. She says the soonest appointment she could make with a primary care provider is not until next month. Additionally, she says she has yet to meet with a urologist; she says she has encountered scheduling difficulty with her primary as well as urology because of both schedule availability as well as her work schedule. Patient has 11 visits to emergency departments over the past 12 months to 3 different emergency departments according to the [facility]DA form. [facility] is her third ED visit this month; she was in [facility] ED on the , and this ED on the . Review of Systems Constitutional: denies: Fever, Chills, Sweats Cardiac: reports: Reviewed and negative Respiratory: reports: Reviewed and negative GI: reports: Abdominal Pain (right flank pain but not abdominal pain per se), Nausea. 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 HEENT: None Psych: Bipolar disorder Musculoskeletal: None Derm: None - Past Surgical History Past Surgical History: Yes - Present Medications Home Medications: Ambulatory Orders Medication Instructions Recorded Confirmed Gabapentin [Neurontin] 300 mg DAILY 06/20/20 04/25/22 Venlafaxine [Effexor] 37.5 mg PO DAILY 06/20/20 04/25/22 lamoTRIgine [Lamictal] 200 mg PO DAILY 06/20/20 04/25/22 Etonogestrel/Ethinyl Estradiol 1 03/16/21 [Nuvaring Vaginal Ring] Benzonatate [Tessalon] 200 mg PO TID PRN #30 cap 05/03/21 Cetirizine HCl/Pseudoephedrine 1 each PO BID PRN #30 ea 05/03/21 [Zyrtec-D Tablet] Ibuprofen [Motrin] 800 mg PO Q8H PRN #30 tablet 05/03/21 04/25/22 Naproxen 500 mg PO BID 10 Days #20 tab.sr 11/07/21 04/25/22 Ondansetron Odt [Zofran] 4 mg TL Q6H PRN #10 tablet 03/20/22 04/25/22 Oxycodone HCl/Acetaminophen 1 - 2 each PO Q6H PRN #14 tablet 03/20/22 04/25/22 [Percocet 5-325 mg Tablet] - Allergies Allergies/Adverse Reactions: Allergies Allergy/AdvReac Type Severity Reaction Status Date / Time amoxicillin Allergy Unknown Verified 04/25/22 19:38 metoclopramide [From Reglan] Allergy Unknown Verified 04/25/22 19:38 tamsulosin [From Flomax] Allergy Unknown Verified 04/25/22 19:38 prochlorperazine AdvReac Anxiety Verified 04/25/22 19:38 [From Compazine] - Social History Does the pt smoke?: No Smoking Status: Never smoker Does the pt drink ETOH?: No Does the pt have substance abuse?: No - Immunizations Immunizations are current?: Yes Immunizations: TDAP current <10years - POLST Patient has POLST: No PD ED PE NORMAL - Vitals Vital signs reviewed: Yes - General General: Alert and oriented X 3, No acute distress, Well developed/nourished - Cardiac Cardiac: RRR, No murmur - Respiratory Respiratory: No respiratory distress, Clear bilaterally - Abdomen Abdomen: No: Normal bowel sounds, Soft, Non tender, Non distended, No organomegaly - Back Back: No CVA TTP Results - Vitals Vitals: Vital Signs - 24 hr 04/25/22 04/25/22 04/25/22 19:38 21:07 22:21 Temperature 37.2 C Heart Rate 83 64 84 Respiratory 16 17 17 Rate Blood Pressure 119/80 115/80 108/76 O2 Saturation 96 100 96 Oxygen O2 Source Room air - Labs Labs: Laboratory Tests 04/25/22 04/25/22 04/25/22 19:53 19:56 19:56 WBC 8.3 RBC 4.40 Hgb 13.7 Hct 42.2 MCV 95.9 MCH 31.1 H MCHC 32.5 RDW 13.3 Plt Count 310 MPV 9.9 Neut # (Auto) 3.9 Lymph # (Auto) 3.7 H [place] # (Auto) 0.5 Eos # (Auto) 0.0 Baso # (Auto) 0.1 Absolute Nucleated RBC 0.00 Nucleated RBC % 0.0 Sodium 142 Potassium 3.6 Chloride 108 Carbon Dioxide 24 Anion Gap 10.0 BUN 9 Creatinine 0.7 Estimated GFR (MDRD) 100 Glucose 101 H Calcium 9.3 Total Bilirubin 0.3 AST 22 ALT 19 Alkaline Phosphatase 63 Total Protein 7.3 Albumin 3.7 Globulin 3.6 Albumin/Globulin Ratio 1.0 Urine Color YELLOW Urine Clarity CLEAR Urine pH 7.0 Ur Specific [place] <=1.005 Urine Protein NEGATIVE Urine Glucose (UA) NEGATIVE Urine Ketones NEGATIVE Urine Occult Blood SMALL H Urine Nitrite NEGATIVE Urine Bilirubin NEGATIVE Urine Urobilinogen 0.2 (NORMAL) Ur Leukocyte Esterase NEGATIVE Urine RBC 0-5 Urine WBC 0-3 Ur Epithelial Cells RARE Transitional Ur Squamous Epith Cells RARE Squamous Urine Bacteria Few Urine Culture Comments NOT INDICATED Urine HCG, Qual NEGATIVE PD Medical Decision Making - ED course Complexity details: reviewed old records, reviewed results, re-evaluated patient, considered differential, d/w patient ED course: Patient has essentially normal CBC and ER abdominal panel. In reviewing previous visits, it looks like one of the more successful regimens for pain control for her is Dilaudid, Toradol with Benadryl, as well as Zofran for nausea. I thus ordered these medications (given IM). On reevaluation, she is resting comfortably, awake and alert, and in NAD. She reports excellent relief of her symptoms. She says she has pain medication at home and does not need prescriptions. I emphasized the importance of following up with a urologist. I explained that chronic ureteral obstruction can lead to gradual attenuating feedback to the central nervous system regarding the pain associated with hydroureter and hyd ronephrosis, And that this Can eventually lead to incorrect impression that the obstruction has resolved, with ongoing obstruction eventually potentially causing irreversible damage to the affected kidney. I explained that this can be everted with proper follow-up (urology), and appropriate studies and possibly procedures at the discretion and recommendation of the urologist. Note that I did not order any radiologic studies tonight, as her pain is very similar to previous presentations, as well as on the right side where it has been previously, and her most recent study at [facility] ([facility] A[facility]) was last month and did demonstrate a 5 mm obstructing UPJ calculus. Departure - Departure Disposition: 01 Home, Self Care Clinical Impression: Renal colic on right side Condition: Good Instructions: ED Stone Renal W Colic Follow-Up: TESSA FRAZIER DO [Primary Care Provider] - Comments: As we discussed, you should pursue follow up with a urologist. There were no concerning findings on reese's blood tests, and a urinalysis only showed a very trace amount of blood; there were no findings on the urinalysis to suggest an infection such as a urinary tract infection or kidney infection. Based on the location and description of symptoms, combined with the recurrent nature of the symptoms and previous/recent CAT scans showing a right sided kidney stone, the most likely cause of your symptoms tonight is a recurrence of the right-sided renal colic. I did not perform any studies such as CAT scan or x-rays because alternative diagnoses are unlikely, and results of such studies would be unlikely to change the management at this point based on how well he responded to the medications were given as well as considering the unremarkable blood tests and urinalysis. Discharge Date/Time: 04/25/22 22:38
[2022-04-25 21:20] LABS: BILIRUBIN,URINE NEGATIVE (NEGATIVE); GLUCOSE, URINE (UA) NEGATIVE (NEGATIVE); KETONES,URINE (UA) NEGATIVE (NEGATIVE); LEUKOCYTE ESTERASE, URINE NEGATIVE (NEGATIVE); NITRITE,URINE NEGATIVE (NEGATIVE); OCCULT BLOOD,URINE SMALL (NEGATIVE); PROTEIN,URINE NEGATIVE (NEGATIVE); UROBILINOGEN,URINE 0.2 (NORMAL) E.U./dL (NORMAL)
[2022-04-25 21:23] LABS: CLARITY,URINE CLEAR (CLEAR); HCG UR QUAL NEGATIVE
[2022-04-25 21:32] LABS: BACTERIA,URINE Few /HPF (None Seen); EPITHELIAL CELLS,UR RARE Transitional /HPF (<= Few); RBC,URINE 0-5 /HPF (0-5); SQUAMOUS EPITHELIAL CELL,UR RARE Squamous (<= Few); WBC,URINE 0-3 /HPF (0-5)
[2022-04-25] MEDS ORDERED: diphenhydrAMINE 25 MG CAPSULE PO STA (22:15)
[2022-04-25 22:22] VITALS: BP 108/76
== END 2022-04-25 22:38 | disposition home or self-care (01) ==
LOC: ED 19:31
DX: N23 Unspecified renal colic (principal)
CPT/HCPCS: 36415; 80053; 81001; 81025; 85025; 96372; 99283; 99284; A9270; J1170; J1200; Q0162; 87086

== ENCOUNTER 2022-05-06 06:04 | Outpatient (CLI) | payer MEDICAID | END 2022-05-06 06:05 | disposition critical access hospital (66) | LOC: EMS 06:04 | DX: R10.9 Unspecified abdominal pain (principal); R35.89 Other polyuria; R30.0 Dysuria; R31.0 Gross hematuria; R11.10 Vomiting, unspecified | CPT/HCPCS: A0425; A0427; A0999 ==

== ENCOUNTER 2022-05-06 06:23 | Emergency (ER) | payer MEDICAID ==
[2022-05-06 06:28] VITALS: BP 123/77
[2022-05-06] MEDS ORDERED: SODIUM CHLORIDE 0.9% 1,000 ML IV STA (06:33)
[2022-05-06] MEDS ORDERED: KETOROLAC 15 MG/ML VIAL IVP STA (06:33)
[2022-05-06] MEDS ORDERED: ONDANSETRON 4 MG/2 ML VIAL IVP STA (06:33)
[2022-05-06 06:47] LABS: BASOPHILS # (AUTO) 0.1 10^3/uL (0.0-0.1); BASOPHILS % (AUTO) 0.7 %; HCT - HEMATOCRIT 39.8 % (37.0-47.0); HGB - HEMOGLOBIN 12.6 g/dL (12.0-16.0); LYMPHOCYTES # (AUTO) 2.3 10^3/uL (1.5-3.5); LYMPHOCYTES % (AUTO) 32.3 %; MEAN CORPUSCULAR HGB CONC 31.7 g/dL (32.0-36.0); MEAN CORPUSCULAR VOLUME 97.8 fL (81.0-99.0); MEAN PLATELET VOLUME 9.8 fL (7.9-10.8); MONOCYTES # (AUTO) 0.5 10^3/uL (0.0-1.0); MONOCYTES % (AUTO) 6.4 %; NEUTROPHILS # (AUTO) 4.3 10^3/uL (1.5-6.6); NEUTROPHILS % (AUTO) 60.3 %; PLT - PLATELET COUNT 279 10^3/uL (130-450); RED BLOOD COUNT 4.07 10^6/uL (4.20-5.40); WHITE BLOOD COUNT 7.2 x10^3/uL (4.8-10.8)
[2022-05-06 07:00] LABS: ALBUMIN 3.3 g/dL (3.2-5.5); ALBUMIN/GLOBULIN RATIO 0.9 (1.0-2.2); BILIRUBIN,TOTAL 0.4 mg/dL (0.2-1.0); CALCIUM 8.6 mg/dL (8.5-10.3); CREATININE 0.7 mg/dL (0.4-1.0); POTASSIUM 3.3 mmol/L (3.5-5.0); TOTAL PROTEIN 6.8 g/dL (6.7-8.2)
--- NOTE | 2022-05-06 07:04 | ED Physician Documentation ---
PD HPI ABD PAIN - Stated complaint Stated Complaint: KIDNEY STONES - Chief complaint Chief Complaint: Abd Pain - History obtained from History obtained from: Patient - History of Present Illness Timing - onset: How many days ago (past couple of days with worse right flank pain, moving to right lower abd.) Timing - duration: Days (has had worse pain the past 2-3 days, with marked increased overnight/today. However has had some right flank pain for about 2 months, with initial diagnosis on CT scan in Mar 20, 2022.) Timing - details: Gradual onset, Still present, Waxing and waning Quality: Aching, Sharp, Pain Location: RLQ Radiation: Right flank Improved by: No: Eating, Vomiting Worsened by: No: Eating, Moving, Breathing, Palpation Associated symptoms: Nausea, Vomiting, Loss of appetite. No: Fever, Diarrhea, Constipation, Dysuria, Chest pain Similar symptoms before: Diagnosis (kidney stones in the past.) Review of Systems Constitutional: denies: Fever, Chills Nose: denies: Rhinorrhea / runny nose, Congestion Throat: denies: Sore throat Cardiac: denies: Chest pain / pressure Respiratory: denies: Cough GI: reports: Abdominal Pain, Nausea, Vomiting. 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 HEENT: None Psych: Bipolar disorder Musculoskeletal: None Derm: None - Past Surgical History Past Surgical History: Yes - Present Medications Home Medications: Ambulatory Orders Medication Instructions Recorded Confirmed Gabapentin [Neurontin] 300 mg ORAL DAILY PM 06/20/20 04/25/22 Venlafaxine [Effexor] 37.5 mg PO DAILY 06/20/20 05/06/22 lamoTRIgine [Lamictal] 200 mg PO DAILY 06/20/20 05/06/22 Etonogestrel/Ethinyl Estradiol 1 applic ONCE 03/16/21 05/06/22 [Nuvaring Vaginal Ring] Cetirizine HCl/Pseudoephedrine 1 each PO BID PRN #30 ea 05/03/21 05/06/22 [Zyrtec-D Tablet] Ibuprofen [Motrin] 800 mg PO Q8H PRN #30 tablet 05/03/21 05/06/22 Oxycodone HCl/Acetaminophen 1 - 2 each PO Q6H PRN #14 tablet 03/20/22 05/06/22 [Percocet 5-325 mg Tablet] HYDROcod/ACETAM 5/325 [[place] 5/325] 1 ea PO Q6H PRN #25 tablet 05/06/22 dexAMETHasone [Decadron] 4 mg PO DAILY #5 tablet 05/06/22 - Allergies Allergies/Adverse Reactions: Allergies Allergy/AdvReac Type Severity Reaction Status Date / Time amoxicillin Allergy Unknown Verified 05/06/22 06:28 metoclopramide [From Reglan] Allergy Unknown Verified 05/06/22 06:28 tamsulosin [From Flomax] Allergy Unknown Verified 05/06/22 06:28 prochlorperazine AdvReac Anxiety Verified 05/06/22 06:28 [From Compazine] - Social History Does the pt smoke?: No Smoking Status: Never smoker Does the pt drink ETOH?: No Does the pt have substance abuse?: No - Immunizations Immunizations are current?: Yes Immunizations: TDAP current <10years - POLST Patient has POLST: No PD ED PE NORMAL - Vitals Vital signs reviewed: Yes - General General: Alert and oriented X 3, Well developed/nourished, Other (appears in pain due to flank pain.) - Neck Neck: Supple, no meningeal sign, No adenopathy - Cardiac Cardiac: RRR, No murmur - Respiratory Respiratory: No respiratory distress, Clear bilaterally - Abdomen Abdomen: Normal bowel sounds, Soft, Non tender, Non distended, No organomegaly - Back Back: Other (right CVA tender to percussion.NO rash nor sores. ) - Derm Derm: Normal color, Warm and dry, No rash - Extremities Extremities: No edema, No calf tenderness / cord - Neuro Neuro: Alert and oriented X 3, No motor deficit, Normal speech Results - Vitals Vitals: Vital Signs - 24 hr 05/06/22 06:26 Temperature 36.4 C L Heart Rate 69 Respiratory 20 Rate Blood Pressure 123/77 O2 Saturation 100 Oxygen O2 Source Room air - Labs Labs: Laboratory Tests 05/06/22 05/06/22 05/06/22 06:43 06:43 07:30 WBC 7.2 RBC 4.07 L Hgb 12.6 Hct 39.8 MCV 97.8 MCH 31.0 MCHC 31.7 L RDW 14.0 Plt Count 279 MPV 9.8 Neut # (Auto) 4.3 Lymph # (Auto) 2.3 [place] # (Auto) 0.5 Eos # (Auto) 0.0 Baso # (Auto) 0.1 Absolute Nucleated RBC 0.00 Nucleated RBC % 0.0 Sodium 139 Potassium 3.3 L Chloride 107 Carbon Dioxide 23 Anion Gap 9.0 BUN 12 Creatinine 0.7 Estimated GFR (MDRD) 100 Glucose 117 H Calcium 8.6 Total Bilirubin 0.4 AST 14 ALT 15 Alkaline Phosphatase 55 Total Protein 6.8 Albumin 3.3 Globulin 3.5 Albumin/Globulin Ratio 0.9 L Lipase 41 Urine Color YELLOW Urine Clarity CLEAR Urine pH 6.0 Ur Specific [place] >=1.030 H Urine Protein TRACE Urine Glucose (UA) NEGATIVE Urine Ketones NEGATIVE Urine Occult Blood MODERATE H Urine Nitrite NEGATIVE Urine Bilirubin NEGATIVE Urine Urobilinogen 0.2 (NORMAL) Ur Leukocyte Esterase NEGATIVE Urine RBC 6-10 H Urine WBC 0-3 Ur Squamous Epith Cells RARE Squamous Urine Crystals 6-10 Calcium Oxalate Urine Bacteria Rare Urine Mucus Few Strands Ur Microscopic Review INDICATED Urine Culture Comments NOT INDICATED Urine HCG, Qual NEGATIVE PD Medical Decision Making - ED course Complexity details: reviewed old records (recent ER visits for treatment of the right flank pain due to kidney stone in ureter. I reviewed the abd CT scan and the images show a 5 mm stone in proximal right ureter, c/w report. ), reviewed results (urinalysis showing blood but no signs of infection. ), considered differential (pain c/w prior kidney stone that has not felt to pass as has had continual pain right flank to some degree for 2 months without cesation, but much worse now. ), d/w patient Reviewed Lab Results: seen in ER 03/20/22 for similar right flank pain, and diagnosed with right proximal ureter kidney stone. Was to see Urology but delay in getting appt and patient now with upcoming appt next week for this. She has had undulating degree of pain for 2 months, with worsening at times. Has worsened particularly the past couple of days. Drug Therapy Requiring Monitoring for Toxicity: given IV opioid and antiemetic as well as IV lidocaine, all of which can have toxic side effects, so careful re-examination during ED stay. ED course: review of [facility]ANDA external report. Departure - Departure Disposition: 01 Home, Self Care Clinical Impression: Right sided abdominal pain, Ureterolithiasis Condition: Stable Record reviewed to determine appropriate education?: Yes Instructions: ED Stone Renal W Colic Prescriptions: dexAMETHasone [Decadron] 4 mg PO DAILY #5 tablet HYDROcod/ACETAM 5/325 [[place] 5/325] 1 ea PO Q6H PRN #25 tablet PRN Reason: Pain Comments: Your kidney function test and blood count are good. Your urine shows some blood in it but no signs of infection. Presume you are still having pain from your kidney stone in the ureter. Given the area of pain, it does sound perhaps like it is moving down the ureter. Follow-up with urology as planned. Meanwhile use anti-inflammatories. I prescribed some Decadron steroid anti- inflammatory and see if that is a little more effective. You can add a little bit of naproxen or ibuprofen twice daily if needed. To that add Tylenol every 4-6 hours if needed for pain or hydrocodone/acetaminophen 1-2 every 6 hours if needed for worse pain. I sent your prescriptions to [facility] in [place]. Return if needed. I am prescribing a short course of narcotic pain medication for you. These are potentially dangerous and addictive medications that should be used carefully. These medications may constipate you. Take an zeag-hgg-izrsdtj stool softener such as docusate twice daily with plenty of water while taking these medications. If you go 24 hours without a bowel movement, take sqyn-yma-tfcwcra MiraLAX, per package instructions. Do not drink or drive while taking these medications. If you received narcotic or sedating medications while in the emergency department do not drive for 24 hours. Store this medication in a safe, secure place and out of reach of children. It is a violation of federal law to give or sell this medication to another person or to use in a manner other than prescribed. The ED will not refill narcotic prescriptions, including prescriptions lost or stolen. You can dispose of unwanted medications at the [facility]'s office or at several pharmacies such as [facility]. Discharge Date/Time: 05/06/22 09:08
[2022-05-06] MEDS ORDERED: LIDOCAINE-MPF 2% 5 ML in SODIUM CHLORIDE 0.9% 50 ML IV STA (07:17)
[2022-05-06] MEDS ORDERED: HYDROmorphone 1 MG/ML CARPUJECT IVP STA (07:17)
[2022-05-06 07:54] LABS: BILIRUBIN,URINE NEGATIVE (NEGATIVE); GLUCOSE, URINE (UA) NEGATIVE (NEGATIVE); KETONES,URINE (UA) NEGATIVE (NEGATIVE); LEUKOCYTE ESTERASE, URINE NEGATIVE (NEGATIVE); NITRITE,URINE NEGATIVE (NEGATIVE); OCCULT BLOOD,URINE MODERATE (NEGATIVE); PROTEIN,URINE TRACE mg/dL (NEGATIVE); UROBILINOGEN,URINE 0.2 (NORMAL) E.U./dL (NORMAL)
[2022-05-06 07:56] LABS: CLARITY,URINE CLEAR (CLEAR); HCG UR QUAL NEGATIVE
[2022-05-06 08:03] LABS: BACTERIA,URINE Rare /HPF (None Seen); CRYSTALS,URINE 6-10 Calcium Oxalate /LPF; MUCUS,URINE Few Strands; SQUAMOUS EPITHELIAL CELL,UR RARE Squamous (<= Few); WBC,URINE 0-3 /HPF (0-5)
[2022-05-06] MEDS ORDERED: HYDROmorphone 0.5 MG/0.5 ML SYRINGE IVP STA (08:23)
[2022-05-06] MEDS ORDERED: DEXAMETHASONE 10 MG/ML VIAL IVP STA (08:23)
== END 2022-05-06 09:08 | disposition home or self-care (01) ==
LOC: EDUNIT# → ED 06:23
DX: N20.1 Calculus of ureter (principal)
CPT/HCPCS: 36415; 80053; 81001; 81025; 83690; 85025; 96361; 96374; 96375; 96376; 99284; 99285; J1170; J7040; 81003; 87086

== ENCOUNTER 2022-12-24 18:54 | Emergency (ER) | payer MEDICAID ==
[2022-12-24 19:47] LABS: BASOPHILS % (AUTO) 1.1 %; EOSINOPHILS % (AUTO) 2.5 %; LYMPHOCYTES % (AUTO) 47.9 %; MEAN CORPUSCULAR HEMOGLOBIN 32.5 pg (27.0-31.0); MEAN CORPUSCULAR HGB CONC 32.6 g/dL (32.0-36.0); MEAN CORPUSCULAR VOLUME 99.8 fL (81.0-99.0); MEAN PLATELET VOLUME 9.8 fL (7.9-10.8); MONOCYTES % (AUTO) 5.6 %; NEUTROPHILS % (AUTO) 42.5 %; PLT - PLATELET COUNT 345 10^3/uL (130-450); RED BLOOD COUNT 4.31 10^6/uL (4.20-5.40); WHITE BLOOD COUNT 8.5 x10^3/uL (4.8-10.8)
[2022-12-24 19:52] LABS: ABNORMAL LYMPHS % (MANUAL) 0 %; BAND NEUTROPHILS % (MANUAL) 0 %
[2022-12-24 20:03] LABS: ALBUMIN 4.1 g/dL (3.2-5.5); ALBUMIN/GLOBULIN RATIO 1.4 (1.0-2.2); BILIRUBIN,TOTAL 0.3 mg/dL (0.2-1.0); CALCIUM 9.5 mg/dL (8.5-10.3); CREATININE 0.7 mg/dL (0.6-1.3); POTASSIUM 3.6 mmol/L (3.5-4.5); TOTAL PROTEIN 7.1 g/dL (6.4-8.9)
[2022-12-24 20:27] LABS: BASOPHILS # (MANUAL) 0.1 10^3/uL (0-0.1); BASOPHILS % (MANUAL) 1 %; EOSINOPHILS # (MANUAL) 0.1 10^3/uL (0-0.7); LYMPHOCYTES # (MANUAL) 4.3 10^3/uL (1.5-3.5); LYMPHOCYTES % (MANUAL) 32 %; MONOCYTES # (MANUAL) 0.5 10^3/uL (0.0-1.0); NEUTROPHILS # (MANUAL) 3.6 10^3/uL (1.5-6.6); RBC MORPHOLOGY (MULTIPLE) NORMAL APPEARANCE (NORMAL); REACTIVE LYMPHS % (MANUAL) 18 %
[2022-12-24 20:28] LABS: DIFFERENTIAL COMMENT MANUAL DIFFERENTIAL; PLATELET ESTIMATE, MANUAL NORMAL (130-450,000) (NORMAL); PLATELET MORPHOLOGY NORMAL APPEARANCE (NORMAL)
[2022-12-24 21:22] LABS: BILIRUBIN,URINE NEGATIVE (NEGATIVE); GLUCOSE, URINE (UA) NEGATIVE (NEGATIVE); KETONES,URINE (UA) NEGATIVE (NEGATIVE); LEUKOCYTE ESTERASE, URINE NEGATIVE (NEGATIVE); NITRITE,URINE NEGATIVE (NEGATIVE); OCCULT BLOOD,URINE MODERATE (NEGATIVE); PH,URINE 6.5 PH (5.0-7.5); PROTEIN,URINE NEGATIVE (NEGATIVE); UROBILINOGEN,URINE 0.2 (NORMAL) E.U./dL (NORMAL)
[2022-12-24 21:25] LABS: CLARITY,URINE CLEAR (CLEAR); HCG UR QUAL NEGATIVE
[2022-12-24 21:36] LABS: BACTERIA,URINE Rare /HPF (None Seen); CRYSTALS,URINE 6-10 Calcium Oxalate /LPF; SQUAMOUS EPITHELIAL CELL,UR RARE Squamous (<= Few); WBC,URINE 0-3 /HPF (0-5)
[2022-12-25 11:00] VITALS: BP 127/98; O2SAT 97
== END 2022-12-24 20:56 | disposition left against medical advice (07) ==
LOC: ED 18:54
DX: Z53.21 Procedure and treatment not carried out due to patient leaving prior to being seen by health care provider (principal)
CPT/HCPCS: 36415; 80053; 81001; 81003; 81025; 83690; 85025; 87086

== ENCOUNTER 2023-03-05 18:48 | Emergency (ER) | payer MEDICAID ==
[2023-03-05 19:09] LABS: BASOPHILS # (AUTO) 0.1 10^3/uL (0.0-0.1); EOSINOPHILS # (AUTO) 0.2 10^3/uL (0.0-0.7); EOSINOPHILS % (AUTO) 2.7 %; HCT - HEMATOCRIT 42.6 % (37.0-47.0); HGB - HEMOGLOBIN 13.6 g/dL (12.0-16.0); LYMPHOCYTES % (AUTO) 48.4 %; MEAN CORPUSCULAR HEMOGLOBIN 32.9 pg (27.0-31.0); MEAN CORPUSCULAR HGB CONC 31.9 g/dL (32.0-36.0); MEAN CORPUSCULAR VOLUME 103.1 fL (81.0-99.0); MEAN PLATELET VOLUME 9.7 fL (7.9-10.8); MONOCYTES # (AUTO) 0.6 10^3/uL (0.0-1.0); MONOCYTES % (AUTO) 6.9 %; NEUTROPHILS # (AUTO) 3.4 10^3/uL (1.5-6.6); NEUTROPHILS % (AUTO) 40.9 %; PLT - PLATELET COUNT 332 10^3/uL (130-450); RED BLOOD COUNT 4.13 10^6/uL (4.20-5.40); RED CELL DISTRIBUTION WIDTH 13.2 % (12.0-15.0); WHITE BLOOD COUNT 8.3 x10^3/uL (4.8-10.8)
[2023-03-05] MEDS ORDERED: SODIUM CHLORIDE 0.9% 1,000 ML IV STA (19:09)
[2023-03-05] MEDS ORDERED: ONDANSETRON 4 MG/2 ML VIAL IVP STA (19:09)
[2023-03-05] MEDS ORDERED: LIDOCAINE-MPF 2% 6 ML in SODIUM CHLORIDE 0.9% 50 ML IV STA (19:09)
[2023-03-05 19:11] LABS: BILIRUBIN,URINE NEGATIVE (NEGATIVE); GLUCOSE, URINE (UA) NEGATIVE (NEGATIVE); KETONES,URINE (UA) NEGATIVE (NEGATIVE); LEUKOCYTE ESTERASE, URINE NEGATIVE (NEGATIVE); NITRITE,URINE NEGATIVE (NEGATIVE); OCCULT BLOOD,URINE MODERATE (NEGATIVE); PROTEIN,URINE NEGATIVE (NEGATIVE); UROBILINOGEN,URINE 0.2 (NORMAL) E.U./dL (NORMAL)
[2023-03-05 19:14] LABS: CLARITY,URINE CLEAR (CLEAR); HCG UR QUAL NEGATIVE
--- NOTE | 2023-03-05 19:17 | ED Physician Documentation ---
History of Present Illness - Stated complaint Stated Complaint: BACK PX,N/V - Chief complaint Chief Complaint: Abd Pain - History obtained from History obtained from: Patient - History of Present Illness Timing: How many days ago (2) Pain level max: 8 Pain level now: 8 - Additonal information Additional information: 27-year-old female presents to the emergency department with right flank pain for the past several days. Took Toradol at home without relief. History of lithotripsy x6. Multiple ureteral stones in the past. Feels similar. No fevers. No chills. Has had nausea and vomiting for the past 24 hours, states unable to keep anything down. Review of Systems Constitutional: denies: Fever, Chills Nose: denies: Rhinorrhea / runny nose, Congestion Respiratory: denies: Dyspnea, Cough GI: reports: Nausea, Vomiting. 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 : Kidney stones HEENT: None Psych: Bipolar disorder Musculoskeletal: None Derm: None - Past Surgical History Past Surgical History: Yes - Present Medications Home Medications: Ambulatory Orders Medication Instructions Recorded Confirmed Gabapentin [Neurontin] 300 mg ORAL DAILY PM 06/20/20 12/07/22 Venlafaxine [Effexor] 75 mg PO DAILY PM 06/20/20 12/07/22 lamoTRIgine [Lamictal] 200 mg PO DAILY 06/20/20 12/07/22 Etonogestrel/Ethinyl Estradiol 1 applic ONCE 03/16/21 12/07/22 [Nuvaring Vaginal Ring] Cefpodoxime Proxetil [Vantin] 100 mg PO Q12H #20 tablet 12/07/22 Ondansetron Odt [Zofran] 4 mg TL Q6H PRN #10 tablet 12/07/22 Oxycodone HCl/Acetaminophen 1 - 2 each PO Q6H PRN #14 tablet 12/07/22 [Percocet 5-325 mg Tablet] MDD 6 tabs Ondansetron Odt [Zofran] 4 mg TL Q6H PRN #10 tablet 03/05/23 oxyCODONE [Roxicodone] 5 - 10 mg PO Q6H PRN #10 tablet 03/05/23 MDD 6 polyethylene glycoL 3350(BULK) 17 gm PO DAILY PRN #1 each 03/05/23 [Miralax] - Allergies Allergies/Adverse Reactions: Allergies Allergy/AdvReac Type Severity Reaction Status Date / Time amoxicillin Allergy Unknown Verified 03/05/23 18:52 metoclopramide [From Reglan] Allergy Unknown Verified 03/05/23 18:52 tamsulosin [From Flomax] Allergy Unknown Verified 03/05/23 18:52 prochlorperazine AdvReac Anxiety Verified 03/05/23 18:52 [From Compazine] - Social History Does the pt smoke?: No Smoking Status: Never smoker Does the pt drink ETOH?: No Does the pt have substance abuse?: Yes - Immunizations Immunizations are current?: Yes Immunizations: TDAP current <10years - POLST Patient has POLST: No PD ED PE NORMAL - Vitals Vital signs reviewed: Yes - General General: Alert and oriented X 3, No acute distress - HEENT HEENT: Moist mucous membranes - Neck Neck: Supple, no meningeal sign - Cardiac Cardiac: RRR, Strong equal pulses - Respiratory Respiratory: No respiratory distress, Clear bilaterally - Abdomen Abdomen: Soft, Non tender, Non distended - Back Back: No CVA TTP, No spinal TTP - Derm Derm: Warm and dry - Extremities Extremities: No edema - Neuro Neuro: Alert and oriented X 3 - Psych Psych: Normal mood, Normal affect Results - Vitals Vitals: Vital Signs - 24 hr 03/05/23 03/05/23 18:52 20:39 Temperature 36.5 C 37 C Heart Rate 87 83 Respiratory 16 20 Rate Blood Pressure 130/74 128/75 O2 Saturation 97 100 Oxygen O2 Source Room air - Labs Labs: Laboratory Tests 03/05/23 03/05/23 03/05/23 19:00 19:03 19:03 WBC 8.3 RBC 4.13 L Hgb 13.6 Hct 42.6 MCV 103.1 H MCH 32.9 H MCHC 31.9 L RDW 13.2 Plt Count 332 MPV 9.7 Neut # (Auto) 3.4 Lymph # (Auto) 4.0 H [place] # (Auto) 0.6 Eos # (Auto) 0.2 Baso # (Auto) 0.1 Absolute Nucleated RBC 0.00 Nucleated RBC % 0.0 Sodium 141 Potassium 3.4 L Chloride 109 Carbon Dioxide 26 Anion Gap 6.0 BUN 7 Creatinine 0.6 Estimated GFR (MDRD) 118 Glucose 79 Calcium 8.7 Total Bilirubin 0.2 AST 11 ALT 9 L Alkaline Phosphatase 60 Total Protein 6.8 Albumin 4.0 Globulin 2.8 Albumin/Globulin Ratio 1.4 Lipase 36 Urine Color YELLOW Urine Clarity CLEAR Urine pH 6.0 Ur Specific [place] >=1.030 H Urine Protein NEGATIVE Urine Glucose (UA) NEGATIVE Urine Ketones NEGATIVE Urine Occult Blood MODERATE H Urine Nitrite NEGATIVE Urine Bilirubin NEGATIVE Urine Urobilinogen 0.2 (NORMAL) Ur Leukocyte Esterase NEGATIVE Urine RBC 11-25 H Urine WBC 4-5 Ur Squamous Epith Cells FEW Squamous Urine Bacteria Few Ur Microscopic Review INDICATED Urine Culture Comments NOT INDICATED Urine HCG, Qual NEGATIVE - Rads (name of study) CT abd/pelvis Relevant Findings:: Final report received, See rad report PD Medical Decision Making - ED course Complexity details: reviewed results, re-evaluated patient, considered differential, d/w patient ED course: 27-year-old female with with abdominal pain. Mostly on the right side. No peritoneal signs. No significant lab abnormalities. No significant abnormal ities on urinalysis. CT scan does not show any evidence of ureterolithiasis. She does have moderate constipation, mainly on the right side, likely the cause of her pain. We will prescribe laxatives for home. We will have her follow-up with her doctor for further care. Patient is well-appearing, nontoxic. Afebrile. Abdomen is soft, nontender nondistended on serial exam. Tolerating p.o. without difficulty after IV fluids and Zofran here. Patient counseled regarding signs and symptoms for which I believe and urgent re-evaluation would be necessary. Patient with good understanding of and agreement to plan and is comfortable going home at this time This document was made in part using voice recognition software. While efforts are made to proofread this document, sound alike and grammatical errors may occur. Departure - Departure Disposition: 01 Home, Self Care Clinical Impression: Vomiting Qualifiers: Vomiting type: unspecified Nausea presence: with nausea Qualified Code(s): R11.2 - Nausea with vomiting, unspecified Constipation Qualifiers: Constipation type: unspecified constipation type Qualified Code(s): K59.00 - Constipation, unspecified Abdominal pain Qualifiers: Abdominal location: generalized Qualified Code(s): R10.84 - Generalized abdominal pain Condition: Good Instructions: ED Constipation Follow-Up: TESSA FRAZIER DO [Primary Care Provider] - Within 1 week Prescriptions: polyethylene glycoL 3350(BULK) [Miralax] 17 gm PO DAILY PRN #1 each PRN Reason: Constipation oxyCODONE [Roxicodone] 5 - 10 mg PO Q6H PRN #10 tablet MDD 6 PRN Reason: pain Ondansetron Odt [Zofran] 4 mg TL Q6H PRN #10 tablet PRN Reason: Nausea / Vomiting Comments: Your prescriptions were sent to [facility] in [place]. Please make sure you are drinking plenty of water at home. The MiraLAX should help with the constipation. Your CT scan does not show any acute abnormalities other than moderate constipation. You do not have any evidence of a passing kidney stone at this time. Your laboratory test do not show any other acute abnormalities. I am prescribing a short course of narcotic pain medication for you. These are potentially dangerous and addictive medications that should be used carefully. These medications may constipate you. Take an wnse-lmg-pqpxaqk stool softener (docusate) twice daily with plenty of water while taking these medications. If you go 24 hours without a bowel movement, take rrmv-fgq-ynrvxhe miralax, per package instructions. Do not drink or drive while taking these medications. If you received narcotic or sedating medications while in the emergency department, do not drive for 24 hours. Store this medication in a safe, secure place and out of reach of children. It is a violation of federal law to give or sell this medication to another person or to use in a manner other than prescribed. The ED will not refill narcotic prescriptions, including prescriptions lost or stolen. To dispose of unwanted medications: 1. [facility] at [address] in [place] has a medication drop box. They accept prescription medications (in pill form) Thursday through Thursday 9:00 a.m. to 5:00 p.m. 2. The [facility] accepts prescription medications (in pill form only) for disposal year round. Call for more information. 3. Contact the [facility] for the next [facility] sponsored prescription drug collection event. , [phone], or [phone]; Forms: PCP List Discharge Date/Time: 03/05/23 20:39
[2023-03-05 19:22] LABS: BACTERIA,URINE Few /HPF (None Seen); SQUAMOUS EPITHELIAL CELL,UR FEW Squamous (<= Few)
[2023-03-05 19:28] LABS: ALBUMIN/GLOBULIN RATIO 1.4 (1.0-2.2); BILIRUBIN,TOTAL 0.2 mg/dL (0.2-1.0); CALCIUM 8.7 mg/dL (8.5-10.3); CREATININE 0.6 mg/dL (0.6-1.3); POTASSIUM 3.4 mmol/L (3.5-4.5); TOTAL PROTEIN 6.8 g/dL (6.4-8.9)
[2023-03-05] MEDS ORDERED: LIDOCAINE-MPF 2% 5 ML VIAL ONE (19:31)
--- NOTE | 2023-03-05 20:12 | CT Report ---
PROCEDURE: ABDOMEN/PELVIS WO INDICATIONS: R flank pain h/o renal stones TECHNIQUE: A CT scan of the abdomen and pelvis was performed without the use of intravenous contrast. Images we re recorded and evaluated at appropriate window settings. Reformats: coronal and sagittal. For radiat ion dose reduction, the following was used: automated exposure control, adjustment of mA and/or kV ac cording to patient size. COMPARISON: CT abdomen pelvis 12/07/2022 FINDINGS: Image quality: Excellent. Lung bases and heart: Unremarkable. Liver: No solid mass. Gallbladder and biliary tree: Spleen: No splenomegaly. Pancreas: No pancreatic ductal dilation. Adrenals: No adrenal nodule. Kidneys and ureters: No hydronephrosis. No renal cystic lesion which requires follow up. No solid mas s. Unchanged nonobstructing left renal calculi. Bowel and peritoneum: No bowel distension. No pathologic free fluid. Moderate colonic stool. No obstr uction. Lymph nodes: No central or retroperitoneal adenopathy. Vessels: No infrarenal aortic aneurysm. PELVIS Reproductive organs: Unremarkable. Bladder: No wall thickness, accounting for underdistention. Pelvic lymph nodes: No pelvic adenopathy by size criteria. Bones: No aggressive osseous abnormality. Other: No significant ventral or inguinal hernia. IMPRESSION: No hydronephrosis or obstructing renal stone. Unchanged left renal calculi. Moderate colonic stool. Reviewed by: Araseli Pardo MD on 03/05/2023 8:11 PM PST Approved by: Araseli Pardo MD on 03/05/2023 8:11 PM PST Station ID: [id number]
[2023-03-05] MEDS ORDERED: oxyCODONE 5 MG TABLET PO STA (20:21)
[2023-03-05 20:41] VITALS: BP 114/70; O2SAT 99
== END 2023-03-05 20:39 | disposition home or self-care (01) ==
LOC: ED 18:48
DX: K59.00 Constipation, unspecified (principal); R11.2 Nausea with vomiting, unspecified
CPT/HCPCS: 36415; 74176; 80053; 81001; 81025; 83690; 85025; 96365; 96375; 99284; A9270; J7040; 81003; 87086

== ENCOUNTER 2023-04-09 15:52 | Emergency (ER) | payer MEDICAID, OTHER ==
[2023-04-09 16:05] VITALS: BP 115/81; O2SAT 100
--- NOTE | 2023-04-09 16:08 | ED Physician Documentation ---
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 : Kidney stones HEENT: None Psych: Bipolar disorder Musculoskeletal: None Derm: None - Past Surgical History Past Surgical History: Yes - Present Medications Home Medications: Ambulatory Orders Medication Instructions Recorded Confirmed Gabapentin [Neurontin] 300 mg ORAL DAILY PM 06/20/20 12/07/22 Venlafaxine [Effexor] 75 mg PO DAILY PM 06/20/20 12/07/22 lamoTRIgine [Lamictal] 200 mg PO DAILY 06/20/20 12/07/22 Etonogestrel/Ethinyl Estradiol 1 applic ONCE 03/16/21 12/07/22 [Nuvaring Vaginal Ring] Cefpodoxime Proxetil [Vantin] 100 mg PO Q12H #20 tablet 12/07/22 Ondansetron Odt [Zofran] 4 mg TL Q6H PRN #10 tablet 12/07/22 Oxycodone HCl/Acetaminophen 1 - 2 each PO Q6H PRN #14 tablet 12/07/22 [Percocet 5-325 mg Tablet] MDD 6 tabs Ondansetron Odt [Zofran] 4 mg TL Q6H PRN #10 tablet 03/05/23 oxyCODONE [Roxicodone] 5 - 10 mg PO Q6H PRN #10 tablet 03/05/23 MDD 6 polyethylene glycoL 3350(BULK) 17 gm PO DAILY PRN #1 each 03/05/23 [Miralax] Ibuprofen [Motrin] 600 mg PO TID PRN #20 tab 04/09/23 - Allergies Allergies/Adverse Reactions: Allergies Allergy/AdvReac Type Severity Reaction Status Date / Time amoxicillin Allergy Unknown Verified 04/09/23 16:03 metoclopramide [From Reglan] Allergy Unknown Verified 04/09/23 16:03 tamsulosin [From Flomax] Allergy Unknown Verified 04/09/23 16:03 prochlorperazine AdvReac Anxiety Verified 04/09/23 16:03 [From Compazine] - Social History Does the pt smoke?: No Smoking Status: Never smoker Does the pt drink ETOH?: No Does the pt have substance abuse?: Yes - Immunizations Immunizations are current?: Yes Immunizations: TDAP current <10years - POLST Patient has POLST: No PD ED PE NORMAL - Vitals Vital signs reviewed: Yes - General General: Alert and oriented X 3, No acute distress, Well developed/nourished - Derm Derm: Normal color, Warm and dry - Extremities Extremities: Other (right wlobw with tednerness ulnar/posterior aspect without deformity nor effusion. Not tender at radial head. ) - Neuro Neuro: Alert and oriented X 3, No motor deficit, No sensory deficit Results - Vitals Vitals: Oxygen O2 Source Room air PD Medical Decision Making - ED course Complexity details: reviewed results (elbow xray without fracture nor effusion.), considered differential (fall onto elbow. Has ROM and no effusion. Not tender at radial head. Xray without fracture nor notable effusion. ), d/w rossi lincoln Departure - Departure Disposition: 01 Home, Self Care Clinical Impression: Accidental fall Qualifiers: Encounter type: initial encounter Qualified Code(s): W19.XXXA - Unspecified fall, initial encounter Elbow contusion Qualifiers: Encounter type: initial encounter Laterality: right Qualified Code(s): S50.01XA - Contusion of right elbow, initial encounter Condition: Stable Record reviewed to determine appropriate education?: Yes Instructions: ED Contusion Elbow Follow-Up: TESSA FRAZIER DO [Primary Care Provider] - Prescriptions: Ibuprofen [Motrin] 600 mg PO TID PRN #20 tab PRN Reason: Pain Comments: Your elbow appears normal on x-ray without any fractures or fluid in the joint. Presume contusion/direct injury to the area which can still be sore for several days or more. Initially use a sling for limited motion and ice elevate and rest. Ibuprofen if needed for pains 3 times a day and would make sense to take it regularly for a few days. Progress use and activity as tolerated. Likely this will be within a few days. I did give a work note for light use of that arm for 2 to 3 days. Forms: PCP List, Activity restrictions Discharge Date/Time: 04/09/23 16:47
--- NOTE | 2023-04-09 16:12 | XRAY Report ---
PROCEDURE: Elbow 3 View RT INDICATIONS: Trauma TECHNIQUE: 3 views of the elbow were acquired. COMPARISON: None. FINDINGS: Bones: No fractures or dislocations. No suspicious bony lesions. Soft tissues: No effusion. No suspicious soft tissue calcifications or masses. IMPRESSION: No acute fracture. No osseous lesion. If symptoms and/or clinical suspicion for pathology continue, f urther assessment with repeat plain films, or advanced imaging (e.g., CT, MRI, or bone scan) is recom mended for further assessment. Reviewed by: Casper Philippe MD on 04/09/2023 4:10 PM PST Approved by: Casper Philippe MD on 04/09/2023 4:10 PM PST Station ID: [id number]
[2023-04-09] MEDS ORDERED: IBUPROFEN 600 MG TABLET PO STA (16:25)
== END 2023-04-09 16:47 | disposition home or self-care (01) ==
LOC: ED 15:52
DX: S50.01XA Contusion of right elbow, initial encounter (principal); W19.XXXA Unspecified fall, initial encounter; Z79.899 Other long term (current) drug therapy
CPT/HCPCS: 1040M; 73080; 99283; A9270

== ENCOUNTER 2023-06-08 18:23 | Emergency (ER) | payer SELFPAY ==
--- NOTE | 2023-06-08 18:41 | ED Physician Documentation ---
PD HPI ABD PAIN - Stated complaint Stated Complaint: BACK PX,N/V - Chief complaint Chief Complaint: Abd Pain - History obtained from History obtained from: Patient - Additional information Additional information: 27-year-old woman with history of recurrent renal colic requiring intervention at times, her urologist is Dr. Navarro in [place]. She developed severe right flank pain associated with nausea midday today consistent with prior episodes of kidney stones. No urinary complaints at this point. No fevers. 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 HEENT: None Psych: Bipolar disorder Musculoskeletal: None Derm: None - Past Surgical History Past Surgical History: Yes - Present Medications Home Medications: Ambulatory Orders Medication Instructions Recorded Confirmed Venlafaxine [Effexor] 75 mg PO DAILY PM 06/20/20 12/07/22 Etonogestrel/Ethinyl Estradiol 1 applic ONCE 03/16/21 12/07/22 [Nuvaring Vaginal Ring] Ciprofloxacin HCl [Cipro] 500 mg PO BID #20 tablet 06/08/23 Ketorolac [Toradol] 10 mg PO Q6H 06/08/23 06/08/23 Oxycodone HCl/Acetaminophen 1 - 2 each PO Q6H PRN #14 tablet 06/08/23 [Percocet 5-325 mg Tablet] Venlafaxine ER [Effexor ER] 75 mg PO DAILY #30 cap 06/08/23 lamoTRIgine [Lamictal] 200 mg PO DAILY #30 tablet 06/08/23 - Allergies Allergies/Adverse Reactions: Allergies Allergy/AdvReac Type Severity Reaction Status Date / Time amoxicillin Allergy Unknown Verified 06/08/23 18:28 metoclopramide [From Reglan] Allergy Unknown Verified 06/08/23 18:28 tamsulosin [From Flomax] Allergy Unknown Verified 06/08/23 18:28 prochlorperazine AdvReac Anxiety Verified 06/08/23 18:28 [From Compazine] - Social History Does the pt smoke?: No Smoking Status: Never smoker Does the pt drink ETOH?: No Does the pt have substance abuse?: Yes - Immunizations Immunizations are current?: Yes Immunizations: TDAP current <10years - POLST Patient has POLST: No PD ED PE NORMAL - Vitals Vital signs reviewed: Yes - General General: Alert and oriented X 3, No acute distress - Cardiac Cardiac: RRR, No murmur - Respiratory Respiratory: No respiratory distress, Clear bilaterally - Abdomen Abdomen: Non tender - Back Back: No CVA TTP - Neuro Neuro: Alert and oriented X 3 Results - Vitals Vitals: Vital Signs - 24 hr 06/08/23 06/08/23 06/08/23 18:26 18:30 20:30 Temperature 36.2 C L 36.5 C 36.5 C Heart Rate 91 91 67 Respiratory 16 16 16 Rate Blood Pressure 101/62 101/62 107/66 O2 Saturation 99 99 100 Oxygen O2 Source Room air - Labs Labs: Laboratory Tests 06/08/23 06/08/23 06/08/23 18:32 18:42 18:42 WBC 13.7 H RBC 4.06 L Hgb 13.5 Hct 41.5 MCV 102.2 H MCH 33.3 H MCHC 32.5 RDW 13.3 Plt Count 329 MPV 9.7 Neut # (Auto) Not Reportable Lymph # (Auto) Not Reportable [place] # (Auto) Not Reportable Eos # (Auto) Not Reportable Baso # (Auto) Not Reportable Absolute Nucleated RBC Not Reportable Total Counted 100 Band Neuts % (Manual) 0 Abnorm Lymph % (Manual) 3 Nucleated RBC % Not Reportable Neutrophils # (Manual) 6.3 Lymphocytes # (Manual) 6.0 H Monocytes # (Manual) 0.5 Eosinophils # (Manual) 0.7 Basophils # (Manual) 0.1 Differential Comment MANUAL DIFFERENTIAL WBC Morphology 1+ HYPERSEG NEUT Platelet Estimate NORMAL (130-450,000) Platelet Morphology NORMAL APPEARANCE RBC Morph Micro Appear 1+ MACROCYTOSIS Sodium 137 Potassium 3.5 Chloride 106 Carbon Dioxide 24 Anion Gap 7.0 BUN 10 Creatinine 0.7 Estimated GFR (MDRD) 99 Glucose 85 Calcium 8.7 Total Bilirubin 0.5 AST 11 ALT 9 L Alkaline Phosphatase 71 Total Protein 6.7 Albumin 3.9 Globulin 2.8 Albumin/Globulin Ratio 1.4 Urine Color YELLOW Urine Clarity SL. CLOUDY Urine pH 6.0 Ur Specific [place] 1.010 Urine Protein NEGATIVE Urine Glucose (UA) NEGATIVE Urine Ketones NEGATIVE Urine Occult Blood MODERATE H Urine Nitrite NEGATIVE Urine Bilirubin NEGATIVE Urine Urobilinogen 0.2 (NORMAL) Ur Leukocyte Esterase SMALL H Urine RBC 3 Urine WBC >25 H Urine WBC Clumps PRESENT Ur Squamous Epith Cells FEW Squamous Urine Bacteria Rare Ur Microscopic Review INDICATED Urine Culture Comments INDICATED Urine HCG, Qual NEGATIVE - Rads (name of study) CT KUB Relevant Findings:: Final report received (Left-sided nephroliths, possible cystitis, no ureterolith.), EMP independent interpretation of test PD Medical Decision Making - ED course ED course: 27-year-old woman with history of renal colic presents with flank pain starting today on the right. Renal colic is certainly a possibility, but she was found to have pyelonephritis here with pyuria, leukocytosis on CBC and unremarkable CMP. CT KUB did not demonstrate any ureteral lifts and she was treated stepwise with doses of Dilaudid, Toradol and nausea medicine here and also 1 g of IV Rocephin for the pyelonephritis. Departure - Departure Disposition: 01 Home, Self Care Clinical Impression: Pyelonephritis Condition: Good Record reviewed to determine appropriate education?: Yes Instructions: ED Kidney Infec Female Prescriptions: Ciprofloxacin HCl [Cipro] 500 mg PO BID #20 tablet Venlafaxine ER [Effexor ER] 75 mg PO DAILY #30 cap lamoTRIgine [Lamictal] 200 mg PO DAILY #30 tablet Oxycodone HCl/Acetaminophen [Percocet 5-325 mg Tablet] 1 - 2 each PO Q6H PRN #14 tablet PRN Reason: pain Comments: I sent your prescriptions to [facility] in [place]. We will culture your urine, the results should be done in 48-72 hours. If an antibiotic change is necessary we will call you. Return if worse in the meantime, especially if you develop increasing flank pain, fevers, or cannot keep down the medication. I am prescribing a short course of narcotic pain medication for you. These are potentially dangerous and addictive medications that should be used carefully. These medications may constipate you. Take an chqf-flz-rqtjmvf stool softener (docusate) twice daily with plenty of water while taking these medications. If you go 24 hours without a bowel movement, take ibnq-lvk-isfcfeb miralax, per package instructions. Do not drink or drive while taking these medications. If you received narcotic or sedating medications while in the emergency department, do not drive for 24 hours. Store this medication in a safe, secure place and out of reach of children. It is a violation of federal law to give or sell this medication to another person or to use in a manner other than prescribed. The ED will not refill narcotic prescriptions, including prescriptions lost or stolen. To dispose of unwanted medications: 1. [facility]'s Office provides a drop box for medication in pill form only (no liquids) 8:00 am to 4:30 p.m. Thursday-Thursday in the lobby of the [facility], [address] [place] [address]. Empty pills into ziplock bag before disposal. Call [phone] for information. 2.[employer] is a free service available to all [facility] residents. Go to [email or web address] Note that many narcotic pain relievers also contain Tylenol/acetaminophen. Please ensure that your total dose of acetaminophen from all sources does not exceed 3 g (3000 mg) per day. Forms: PCP List
[2023-06-08] MEDS: SODIUM CHLORIDE 0.9% 1,000 ML IV STA (18:44)
[2023-06-08] MEDS: diphenhydrAMINE INJ 50 MG/ML VIAL IVP STA ×2 (18:45→20:08)
[2023-06-08 18:46] LABS: BILIRUBIN,URINE NEGATIVE (NEGATIVE); GLUCOSE, URINE (UA) NEGATIVE (NEGATIVE); KETONES,URINE (UA) NEGATIVE (NEGATIVE); LEUKOCYTE ESTERASE, URINE SMALL (NEGATIVE); NITRITE,URINE NEGATIVE (NEGATIVE); OCCULT BLOOD,URINE MODERATE (NEGATIVE); PROTEIN,URINE NEGATIVE (NEGATIVE); UROBILINOGEN,URINE 0.2 (NORMAL) E.U./dL (NORMAL)
[2023-06-08] MEDS: ONDANSETRON 4 MG/2 ML VIAL IVP STA (18:46)
[2023-06-08 18:48] LABS: CLARITY,URINE SL. CLOUDY (CLEAR)
[2023-06-08 18:49] LABS: HCG UR QUAL NEGATIVE
[2023-06-08] MEDS: HYDROmorphone 1 MG/ML CARPUJECT IVP STA ×3 (18:49→20:52)
[2023-06-08 18:50] LABS: BASOPHILS % (AUTO) 0.7 %; EOSINOPHILS % (AUTO) 2.6 %; HCT - HEMATOCRIT 41.5 % (37.0-47.0); HGB - HEMOGLOBIN 13.5 g/dL (12.0-16.0); LYMPHOCYTES % (AUTO) 37.3 %; MEAN CORPUSCULAR HEMOGLOBIN 33.3 pg (27.0-31.0); MEAN CORPUSCULAR HGB CONC 32.5 g/dL (32.0-36.0); MEAN CORPUSCULAR VOLUME 102.2 fL (81.0-99.0); MEAN PLATELET VOLUME 9.7 fL (7.9-10.8); MONOCYTES % (AUTO) 5.6 %; NEUTROPHILS % (AUTO) 53.4 %; PLT - PLATELET COUNT 329 10^3/uL (130-450); RED BLOOD COUNT 4.06 10^6/uL (4.20-5.40); RED CELL DISTRIBUTION WIDTH 13.3 % (12.0-15.0); WHITE BLOOD COUNT 13.7 x10^3/uL (4.8-10.8)
[2023-06-08] MEDS: KETOROLAC 15 MG/ML VIAL IVP STA (18:50)
[2023-06-08 18:53] LABS: BAND NEUTROPHILS % (MANUAL) 0 %
[2023-06-08 19:01] LABS: RBC,URINE 3 /HPF (0-5); WBC CLUMPS,URINE PRESENT; WBC,URINE >25 /HPF (0-5)
[2023-06-08 19:02] LABS: BACTERIA,URINE Rare /HPF (None Seen); SQUAMOUS EPITHELIAL CELL,UR FEW Squamous (<= Few)
[2023-06-08 19:04] LABS: ALBUMIN 3.9 g/dL (3.2-5.5); ALBUMIN/GLOBULIN RATIO 1.4 (1.0-2.2); BILIRUBIN,TOTAL 0.5 mg/dL (0.2-1.0); CALCIUM 8.7 mg/dL (8.5-10.3); CREATININE 0.7 mg/dL (0.6-1.3); POTASSIUM 3.5 mmol/L (3.5-4.5); TOTAL PROTEIN 6.7 g/dL (6.4-8.9)
[2023-06-08 19:15] LABS: ABNORMAL LYMPHS % (MANUAL) 3 %; BASOPHILS # (MANUAL) 0.1 10^3/uL (0-0.1); BASOPHILS % (MANUAL) 1 %; EOSINOPHILS # (MANUAL) 0.7 10^3/uL (0-0.7); LYMPHOCYTES % (MANUAL) 41 %; MONOCYTES # (MANUAL) 0.5 10^3/uL (0.0-1.0); NEUTROPHILS # (MANUAL) 6.3 10^3/uL (1.5-6.6)
[2023-06-08 19:16] LABS: DIFFERENTIAL COMMENT MANUAL DIFFERENTIAL; PLATELET ESTIMATE, MANUAL NORMAL (130-450,000) (NORMAL); PLATELET MORPHOLOGY NORMAL APPEARANCE (NORMAL); WBC MORPHOLOGY (MULTIPLE) 1+ HYPERSEG NEUT (NORMAL)
--- NOTE | 2023-06-08 20:05 | CT Report ---
PROCEDURE: Abdomen/Pelvis WO INDICATIONS: r flank pain TECHNIQUE: A CT scan of the abdomen and pelvis was performed without the use of intravenous contrast. Images we re recorded and evaluated at appropriate window settings. Reformats: coronal and sagittal. For radiat ion dose reduction, the following was used: automated exposure control, adjustment of mA and/or kV ac cording to patient size. COMPARISON: 03/05/2023. FINDINGS: Image quality: Diagnostic. Lower chest: Unremarkable. Liver: No contour-deforming mass. Gallbladder and biliary tree: Spleen: No splenomegaly. Pancreas: No pancreatic ductal dilation. Adrenals: No adrenal nodule. Kidneys and ureters: Redemonstration of nonobstructing left renal stones measuring up to 4 mm. No hyd ronephrosis. No significant perinephric stranding. Bilateral ureters are normal in course and caliber . No renal cystic lesion which requires follow up. No solid mass. Stomach, bowel and peritoneum: No bowel distension. No pathologic free fluid. No acute inflammatory c hanges identified. Lymph nodes: No central or retroperitoneal adenopathy. Vessels: No infrarenal aortic aneurysm. PELVIS Reproductive organs: Unremarkable. Bladder: Mild circumferential urinary bladder wall thickening without significant perivesicular stran ding. Findings likely related to incomplete distention. No urinary bladder stone seen. Pelvic lymph nodes: No pelvic adenopathy by size criteria. Bones: No aggressive osseous abnormality. Other: No significant ventral or inguinal hernia. IMPRESSION: 1. Nonobstructing left-sided renal stones without hydronephrosis. 2. Minimal circumferential urinary bladder wall thickening likely related to incomplete distention. N o significant perivesicular inflammation. Cystitis is conceivable but thought less likely. Recommend clinical/laboratory correlation. No urinary bladder stone seen. 3. Otherwise, no acute abnormalities identified in the abdomen or pelvis. Reviewed by: Michele Dennis MD on 06/08/2023 8:03 PM [facility] Approved by: Michele Dennis MD on 06/08/2023 8:03 PM PST Station ID: [id number]
[2023-06-08 20:38] VITALS: BP 107/66; O2SAT 100
[2023-06-08] MEDS: oxyCODONE/ACET 5/325 Prepack 4 PO STA (20:49)
[2023-06-08] MEDS: cefTRIAXone 1 GM VIAL IVP STA (20:53)
== END 2023-06-08 20:58 | disposition home or self-care (01) ==
LOC: ED 18:23
DX: N20.0 Calculus of kidney (principal); Z87.442 Personal history of urinary calculi
CPT/HCPCS: 36415; 74176; 80053; 81001; 81025; 85025; 87086; 87181; 96374; 96375; 96376; 99284; 99285; J1170; J1200; 81003

== ENCOUNTER 2023-08-24 18:22 | Emergency (ER) | payer MEDICAID ==
[2023-08-24 18:50] VITALS: BP 115/72; O2SAT 99
[2023-08-24 18:58] LABS: BILIRUBIN,URINE NEGATIVE (NEGATIVE); GLUCOSE, URINE (UA) NEGATIVE (NEGATIVE); KETONES,URINE (UA) 15 mg/dL (NEGATIVE); LEUKOCYTE ESTERASE, URINE NEGATIVE (NEGATIVE); NITRITE,URINE NEGATIVE (NEGATIVE); OCCULT BLOOD,URINE SMALL (NEGATIVE); PROTEIN,URINE NEGATIVE (NEGATIVE); UROBILINOGEN,URINE 0.2 (NORMAL) E.U./dL (NORMAL)
--- NOTE | 2023-08-24 19:04 | ED Physician Documentation ---
PD HPI ABD PAIN - Stated complaint Stated Complaint: N/V/BACK PX - Chief complaint Chief Complaint: Abd Pain - History obtained from History obtained from: Patient - Additional information Additional information: She has a history of recurrent renal colic. Developed right flank pain yesterday worse today associated with nausea. There is no urinary complaints or fevers. Of note she had a CT done a little over 2 months ago for a similar episode at which time there were nonobstructing left-sided nephroliths, but no abnormality on the right. PD PAST MEDICAL HISTORY - Past Medical History Cardiovascular: None Respiratory: None Neuro: None Endocrine/Autoimmune: None GI: None SPOOLER: None : Kidney stones HEENT: None Psych: Bipolar disorder Musculoskeletal: None Derm: None - Past Surgical History Past Surgical History: Yes - Present Medications Home Medications: Ambulatory Orders Medication Instructions Recorded Confirmed Venlafaxine [Effexor] 75 mg PO DAILY PM 06/20/20 12/07/22 Etonogestrel/Ethinyl Estradiol 1 applic ONCE 03/16/21 12/07/22 [Nuvaring Vaginal Ring] Ciprofloxacin HCl [Cipro] 500 mg PO BID #20 tablet 06/08/23 Ketorolac [Toradol] 10 mg PO Q6H 06/08/23 06/08/23 Oxycodone HCl/Acetaminophen 1 - 2 each PO Q6H PRN #14 tablet 06/08/23 [Percocet 5-325 mg Tablet] Venlafaxine ER [Effexor ER] 75 mg PO DAILY #30 cap 06/08/23 lamoTRIgine [Lamictal] 200 mg PO DAILY #30 tablet 06/08/23 Oxycodone HCl/Acetaminophen 1 - 2 each PO Q6H PRN #10 tablet 08/24/23 [Percocet 5-325 mg Tablet] - Allergies Allergies/Adverse Reactions: Allergies Allergy/AdvReac Type Severity Reaction Status Date / Time amoxicillin Allergy Unknown Verified 08/24/23 18:42 metoclopramide [From Reglan] Allergy Unknown Verified 08/24/23 18:42 tamsulosin [From Flomax] Allergy Unknown Verified 08/24/23 18:42 prochlorperazine AdvReac Anxiety Verified 08/24/23 18:42 [From Compazine] - Social History Does the pt smoke?: No Smoking Status: Never smoker Does the pt drink ETOH?: No Does the pt have substance abuse?: Yes - Immunizations Immunizations are current?: Yes Immunizations: TDAP current <10years - POLST Patient has POLST: No PD ED PE NORMAL - Vitals Vital signs reviewed: Yes - General General: Alert and oriented X 3, No acute distress - Abdomen Abdomen: Normal bowel sounds, Soft, Non tender - Back Back: No CVA TTP - Neuro Neuro: Alert and oriented X 3 Results - Vitals Vitals: Vital Signs - 24 hr 08/24/23 08/24/23 18:39 18:42 Temperature 36.4 C L 36.5 C Heart Rate 94 94 Respiratory 16 16 Rate Blood Pressure 115/72 115/72 O2 Saturation 99 99 Oxygen O2 Source Room air - Labs Labs: Laboratory Tests 08/24/23 08/24/23 08/24/23 18:53 19:08 19:08 WBC 8.2 RBC 4.13 L Hgb 13.8 Hct 42.1 MCV 101.9 H MCH 33.4 H MCHC 32.8 RDW 13.4 Plt Count 315 MPV 9.7 Neut # (Auto) 4.1 Lymph # (Auto) 3.2 [place] # (Auto) 0.5 Eos # (Auto) 0.2 Baso # (Auto) 0.1 Absolute Nucleated RBC 0.00 Nucleated RBC % 0.0 Sodium 138 Potassium 3.8 Chloride 107 Carbon Dioxide 24 Anion Gap 7.0 BUN 7 Creatinine 0.7 Estimated GFR (MDRD) 99 Glucose 85 Calcium 9.3 Total Bilirubin 0.5 AST 15 ALT 16 Alkaline Phosphatase 70 Total Protein 6.2 L Albumin 4.0 Globulin 2.2 Albumin/Globulin Ratio 1.8 Urine Color YELLOW Urine Clarity CLEAR Urine pH 7.0 Ur Specific [place] 1.010 Urine Protein NEGATIVE Urine Glucose (UA) NEGATIVE Urine Ketones 15 H Urine Occult Blood SMALL H Urine Nitrite NEGATIVE Urine Bilirubin NEGATIVE Urine Urobilinogen 0.2 (NORMAL) Ur Leukocyte Esterase NEGATIVE Urine RBC 6-10 H Urine WBC 0-3 Ur Squamous Epith Cells RARE Squamous Urine Bacteria None Seen Ur Microscopic Review INDICATED Urine Culture Comments NOT INDICATED Urine HCG, Qual NEGATIVE PD Medical Decision Making - ED course ED course: 27-year-old woman with right flank pain. She has a history of both renal colic and pyelonephritis. She had a CT 2 and half months ago at which point she had nephroliths on the left but not the right. She is no urinary complaints per se. Today her white count is normal, renal function is normal, and urinalysis showing some blood but otherwise relatively unimpressive. I went back and looked at the CT from May to confirm that there were no right-sided nephroliths, and I actually do see some tiny hyperdensities for example image 50, so presume she has a very small stone that is passing tonight. She was initially medicated with Toradol, Dilaudid, and Zofran. Then she requested Benadryl. On recheck at 7:55 PM her pain was improved but still fairly bad and the Dilaudid was repeated. Departure - Departure Disposition: 01 Home, Self Care Clinical Impression: Renal colic Condition: Good Record reviewed to determine appropriate education?: Yes Instructions: ED Stone Renal W Colic Prescriptions: Oxycodone HCl/Acetaminophen [Percocet 5-325 mg Tablet] 1 - 2 each PO Q6H PRN #10 tablet PRN Reason: pain Comments: Presume kidney stone based on lack of infection in the urine and your history of same. Follow-up with your urologist in the next few days if not better, return for new or worsening symptoms. I sent your prescription electronically to [facility] in [place]. I am prescribing a short course of narcotic pain medication for you. These are potentially dangerous and addictive medications that should be used carefully. These medications may constipate you. Take an jxdy-iai-yydfffl stool softener (docusate) twice daily with plenty of water while taking these medications. If you go 24 hours without a bowel movement, take jnlg-nke-ofruspw miralax, per pac danie instructions. Do not drink or drive while taking these medications. If you received narcotic or sedating medications while in the emergency department, do not drive for 24 hours. Store this medication in a safe, secure place and out of reach of children. It is a violation of federal law to give or sell this medication to another person or to use in a manner other than prescribed. The ED will not refill narcotic prescriptions, including prescriptions lost or stolen. To dispose of unwanted medications: 1. [facility] provides a drop box for medication in pill form only (no liquids) 8:00 am to 4:30 p.m. Thursday-[place] in the lobby of the [place], [address], [place]. Empty pills into ziplock bag before disposal. Call [phone] for information. 2.[employer] is a free service available to all [facility] residents. Go to [email or web address] Note that many narcotic pain relievers also contain Tylenol/acetaminophen. Please ensure that your total dose of acetaminophen from all sources does not exceed 3 g (3000 mg) per day. Forms: PCP List
[2023-08-24 19:18] LABS: BASOPHILS # (AUTO) 0.1 10^3/uL (0.0-0.1); BASOPHILS % (AUTO) 0.9 %; EOSINOPHILS # (AUTO) 0.2 10^3/uL (0.0-0.7); EOSINOPHILS % (AUTO) 2.7 %; HCT - HEMATOCRIT 42.1 % (37.0-47.0); HGB - HEMOGLOBIN 13.8 g/dL (12.0-16.0); LYMPHOCYTES # (AUTO) 3.2 10^3/uL (1.5-3.5); LYMPHOCYTES % (AUTO) 39.5 %; MEAN CORPUSCULAR HEMOGLOBIN 33.4 pg (27.0-31.0); MEAN CORPUSCULAR HGB CONC 32.8 g/dL (32.0-36.0); MEAN CORPUSCULAR VOLUME 101.9 fL (81.0-99.0); MEAN PLATELET VOLUME 9.7 fL (7.9-10.8); MONOCYTES # (AUTO) 0.5 10^3/uL (0.0-1.0); MONOCYTES % (AUTO) 6.6 %; NEUTROPHILS # (AUTO) 4.1 10^3/uL (1.5-6.6); NEUTROPHILS % (AUTO) 50.1 %; PLT - PLATELET COUNT 315 10^3/uL (130-450); RED BLOOD COUNT 4.13 10^6/uL (4.20-5.40); RED CELL DISTRIBUTION WIDTH 13.4 % (12.0-15.0); WHITE BLOOD COUNT 8.2 x10^3/uL (4.8-10.8)
[2023-08-24 19:22] LABS: CLARITY,URINE CLEAR (CLEAR); HCG UR QUAL NEGATIVE
[2023-08-24 19:24] LABS: BACTERIA,URINE None Seen /HPF (None Seen); SQUAMOUS EPITHELIAL CELL,UR RARE Squamous (<= Few); WBC,URINE 0-3 /HPF (0-5)
[2023-08-24] MEDS: ONDANSETRON 4 MG/2 ML VIAL IVP STA (19:25)
[2023-08-24] MEDS: KETOROLAC 15 MG/ML VIAL IVP STA (19:25)
[2023-08-24] MEDS: HYDROmorphone 1 MG/ML CARPUJECT IVP STA ×2 (19:26→20:08)
[2023-08-24] MEDS: SODIUM CHLORIDE 0.9% 1,000 ML IV STA (19:26)
[2023-08-24 19:28] LABS: ALBUMIN/GLOBULIN RATIO 1.8 (1.0-2.2); BILIRUBIN,TOTAL 0.5 mg/dL (0.2-1.0); CALCIUM 9.3 mg/dL (8.5-10.3); CREATININE 0.7 mg/dL (0.6-1.3); POTASSIUM 3.8 mmol/L (3.5-4.5); TOTAL PROTEIN 6.2 g/dL (6.4-8.9)
[2023-08-24] MEDS: diphenhydrAMINE INJ 50 MG/ML VIAL IVP STA (19:45)
[2023-08-24] MEDS: MORPHINE 10 MG/ML VIAL IVP STA (20:55)
[2023-08-24] MEDS: oxyCODONE/ACET 5/325 Prepack 4 PO STA (21:26)
== END 2023-08-24 21:32 | disposition home or self-care (01) ==
LOC: ED 18:22
DX: N23 Unspecified renal colic (principal); Z87.442 Personal history of urinary calculi
CPT/HCPCS: 36415; 80053; 81001; 81025; 85025; 96374; 96375; 96376; 99284; 99285; J1170; J1200; 81003; 87086

== ENCOUNTER 2023-08-26 13:41 | Emergency (ER) | payer MEDICAID ==
[2023-08-26 13:53] VITALS: O2SAT 100
[2023-08-26 14:33] LABS: BASOPHILS # (AUTO) 0.1 10^3/uL (0.0-0.1); EOSINOPHILS # (AUTO) 0.2 10^3/uL (0.0-0.7); EOSINOPHILS % (AUTO) 2.5 %; HGB - HEMOGLOBIN 13.8 g/dL (12.0-16.0); LYMPHOCYTES # (AUTO) 3.4 10^3/uL (1.5-3.5); MEAN CORPUSCULAR HEMOGLOBIN 32.9 pg (27.0-31.0); MEAN CORPUSCULAR HGB CONC 32.1 g/dL (32.0-36.0); MEAN CORPUSCULAR VOLUME 102.4 fL (81.0-99.0); MEAN PLATELET VOLUME 9.6 fL (7.9-10.8); MONOCYTES # (AUTO) 0.5 10^3/uL (0.0-1.0); NEUTROPHILS # (AUTO) 3.6 10^3/uL (1.5-6.6); NEUTROPHILS % (AUTO) 46.2 %; PLT - PLATELET COUNT 334 10^3/uL (130-450); RED CELL DISTRIBUTION WIDTH 13.2 % (12.0-15.0); WHITE BLOOD COUNT 7.7 x10^3/uL (4.8-10.8)
[2023-08-26 14:45] LABS: ALBUMIN 4.2 g/dL (3.2-5.5); ALBUMIN/GLOBULIN RATIO 1.4 (1.0-2.2); BILIRUBIN,TOTAL 0.4 mg/dL (0.2-1.0); CALCIUM 9.7 mg/dL (8.5-10.3); CREATININE 0.6 mg/dL (0.6-1.3); POTASSIUM 3.9 mmol/L (3.5-4.5); TOTAL PROTEIN 7.1 g/dL (6.4-8.9)
--- NOTE | 2023-08-26 15:44 | ED Physician Documentation ---
PD HPI ABD PAIN - Stated complaint Stated Complaint: BACK PX - Chief complaint Chief Complaint: Back Pain - History obtained from History obtained from: Patient - History of Present Illness Timing - onset: How many days ago (few) Timing - duration: Days (few) Timing - details: Abrupt onset, Still present Quality: Aching, Sharp, Pain Location: RLQ Radiation: Right flank (initially right flank and has moved to right lower as well. COnsistent pain not changes with movement. Assocciated with nausea and some vomiting overnight today. Feeling c/w prior kidney stones.) Improved by: No: Eating, Vomiting, Meds (Rx meds from recent visit not helping, partly due to nausea and emesis of it.) Worsened by: No: Eating, Moving, Palpation Associated symptoms: Nausea, Vomiting, Hematuria. No: Fever, Diarrhea, Constipation, Dysuria Similar symptoms before: Diagnosis (feeling similar to prior kidney stones.) Recently seen: Emergency Dept (same pain couple days ago and seen with symptoms c/w stone enough to empirically treat. 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 : Kidney stones HEENT: None Psych: Bipolar disorder Musculoskeletal: None Derm: None - Past Surgical History Past Surgical History: Yes - Present Medications Home Medications: Ambulatory Orders Medication Instructions Recorded Confirmed Venlafaxine [Effexor] 75 mg PO DAILY PM 06/20/20 08/26/23 Oxycodone HCl/Acetaminophen 1 - 2 each PO Q6H PRN #10 tablet 08/24/23 08/26/23 [Percocet 5-325 mg Tablet] Gabapentin [Neurontin] 300 mg PO DAILY 08/26/23 08/26/23 - Allergies Allergies/Adverse Reactions: Allergies Allergy/AdvReac Type Severity Reaction Status Date / Time amoxicillin Allergy Unknown Verified 08/24/23 18:42 metoclopramide [From Reglan] Allergy Unknown Verified 08/24/23 18:42 tamsulosin [From Flomax] Allergy Unknown Verified 08/24/23 18:42 prochlorperazine AdvReac Anxiety Verified 08/24/23 18:42 [From Compazine] - Social History Does the pt smoke?: No Smoking Status: Never smoker Does the pt drink ETOH?: No Does the pt have substance abuse?: Yes - Immunizations Immunizations are current?: Yes Immunizations: TDAP current <10years - POLST Patient has POLST: No PD ED PE NORMAL - Vitals Vital signs reviewed: Yes - General General: Alert and oriented X 3, Well developed/nourished, Other (appears in pain right side. Not having tenderness of abd much. ) - Cardiac Cardiac: RRR, No murmur - Respiratory Respiratory: No respiratory distress, Clear bilaterally - Abdomen Abdomen: Normal bowel sounds, Soft, Non distended, No organomegaly - Female Female : Deferred - Rectal Rectal: Deferred - Back Back: No spinal TTP, Other (moderate right flank tender to percussion. ) - Derm Derm: Normal color, No rash Results - Vitals Vitals: Oxygen O2 Source Room air - Labs Labs: Laboratory Tests 08/26/23 08/26/23 08/26/23 14:27 14:27 16:24 WBC 7.7 RBC 4.20 Hgb 13.8 Hct 43.0 MCV 102.4 H MCH 32.9 H MCHC 32.1 RDW 13.2 Plt Count 334 MPV 9.6 Neut # (Auto) 3.6 Lymph # (Auto) 3.4 [place] # (Auto) 0.5 Eos # (Auto) 0.2 Baso # (Auto) 0.1 Absolute Nucleated RBC 0.00 Nucleated RBC % 0.0 Sodium 137 Potassium 3.9 Chloride 106 Carbon Dioxide 25 Anion Gap 6.0 BUN 7 Creatinine 0.6 Estimated GFR (MDRD) 118 Glucose 90 Calcium 9.7 Total Bilirubin 0.4 AST 15 ALT 15 Alkaline Phosphatase 67 Total Protein 7.1 Albumin 4.2 Globulin 2.9 Albumin/Globulin Ratio 1.4 Lipase 36 Urine Color YELLOW Urine Clarity HAZY Urine pH 6.0 Ur Specific [place] 1.025 Urine Protein NEGATIVE Urine Glucose (UA) NEGATIVE Urine Ketones 15 H Urine Occult Blood SMALL H Urine Nitrite NEGATIVE Urine Bilirubin NEGATIVE Urine Urobilinogen 0.2 (NORMAL) Ur Leukocyte Esterase NEGATIVE Urine RBC 0-5 Urine WBC 0-3 Ur Epithelial Cells FEW Transitional Ur Squamous Epith Cells FEW Squamous Urine Bacteria Few Urine Mucus Moderate Strands Ur Microscopic Review INDICATED Urine Culture Comments NOT INDICATED Urine HCG, Qual NEGATIVE PD Medical Decision Making - ED course Complexity details: reviewed results (CT showing possible small distal ureteral stone in my view. Radiology states normal appearance of exam except 3 mm left renal nonobstructing stone. ), re-evaluated patient (pain improved moderately with IV dilaudid and toradol. Much more significant improvement iwth IV lidocaine. consider small right stone in ureter. ), considered differential (sounds like kidney stone pain but has not improved over couple of days, so assessing size and location can be useful and potential other disanoses. Pt is agreement. ), d/w patient Departure - Departure Disposition: Home, Self Care Clinical Impression: Acute right flank pain, Ureterolithiasis Condition: Stable Record reviewed to determine appropriate education?: Yes Instructions: ED Stone Renal W Colic Follow-Up: TESSA FRAZIER DO [Primary Care Provider] - Christiano Manuel MD [Provider Admit Priv/Credential] - Comments: To my review of your CT, it does look likely a small almost 2 millimeter stone at the distal ureter. It is in a location that looks like it should be able to pass fairly soon. I do not have the radiology reading back as yet for confirmation but it does fit your symptoms. Continue with small frequent fluids and ondansetron or nausea medicine as needed. He states he did you still have pain medicine at home if needed. Continue with that. I would suggest a baseline level of Tylenol 500 to 650 mg 4 times a day and an anti-inflammatory such as naproxen or ibuprofen 2-3 times daily. To that add the opiate pain medicine if needed. Recheck if not improved well over the next few days with anticipation of this passing in the near future. Discharge Date/Time: 08/26/23 18:59
[2023-08-26 16:29] LABS: BILIRUBIN,URINE NEGATIVE (NEGATIVE); GLUCOSE, URINE (UA) NEGATIVE (NEGATIVE); KETONES,URINE (UA) 15 mg/dL (NEGATIVE); LEUKOCYTE ESTERASE, URINE NEGATIVE (NEGATIVE); NITRITE,URINE NEGATIVE (NEGATIVE); OCCULT BLOOD,URINE SMALL (NEGATIVE); PROTEIN,URINE NEGATIVE (NEGATIVE); UROBILINOGEN,URINE 0.2 (NORMAL) E.U./dL (NORMAL)
[2023-08-26 16:31] LABS: CLARITY,URINE HAZY (CLEAR)
[2023-08-26 16:32] LABS: HCG UR QUAL NEGATIVE
[2023-08-26] MEDS ORDERED: iohexoL-300 100 ML VIAL ONE (16:38)
[2023-08-26 16:40] LABS: RBC,URINE 0-5 /HPF (0-5); SQUAMOUS EPITHELIAL CELL,UR FEW Squamous (<= Few); WBC,URINE 0-3 /HPF (0-5)
[2023-08-26 16:41] LABS: BACTERIA,URINE Few /HPF (None Seen); EPITHELIAL CELLS,UR FEW Transitional /HPF (<= Few); MUCUS,URINE Moderate Strands
[2023-08-26] MEDS: HYDROmorphone 1 MG/ML CARPUJECT IVP STA ×2 (17:00→18:14)
[2023-08-26] MEDS: ONDANSETRON 4 MG/2 ML VIAL IVP STA (17:00)
[2023-08-26] MEDS: KETOROLAC 15 MG/ML VIAL IVP STA (17:01)
[2023-08-26] MEDS: iohexoL-300 100 ML VIAL IVP ONE (17:25)
[2023-08-26] MEDS: LIDOCAINE-MPF 2% 6 ML in SODIUM CHLORIDE 0.9% 50 ML IV STA (18:13)
[2023-08-26] MEDS: DEXAMETHASONE 10 MG/ML VIAL IVP STA (18:14)
--- NOTE | 2023-08-26 18:23 | CT Report ---
PROCEDURE: Abdomen/Pelvis W INDICATIONS: right flank pain, h/p stones CONTRAST: Omni 300 100ml TECHNIQUE: After the administration of intravenous contrast, a CT scan of the abdomen and pelvis was performed. Images were recorded and evaluated at appropriate window settings. Reformats: coronal and sagittal. F or radiation dose reduction, the following was used: automated exposure control, adjustment of mA and /or kV according to patient size. COMPARISON: None. FINDINGS: Image quality: Diagnostic. Lower chest: Unremarkable. Liver: No solid mass. Gallbladder and biliary tree: Spleen: No splenomegaly. Pancreas: No pancreatic ductal dilation. Adrenals: No adrenal nodule. Kidneys and ureters: No hydronephrosis. No renal cystic lesion which requires follow up. No solid mas s. 3 mm nonobstructing left renal stone. Stomach, bowel and peritoneum: No bowel distension. No pathologic free fluid. Lymph nodes: No central or retroperitoneal adenopathy. Vessels: No infrarenal aortic aneurysm. PELVIS Reproductive organs: Unremarkable. Small amount of pelvic free fluid likely physiologic. Bladder: No abnormal wall thickening, accounting for underdistention. Pelvic lymph nodes: No pelvic adenopathy by size criteria. Bones: No aggressive osseous abnormality. Other: No significant ventral or inguinal hernia. IMPRESSION: Nonobstructing 3 mm left renal stone. No hydronephrosis or hydroureter. Otherwise, no acute abnormalities identified in the abdomen or pelvis. Reviewed by: Michele Dennis MD on 08/26/2023 6:22 PM PDT Approved by: Michele Dennis MD on 08/26/2023 6:22 PM PDT Station ID: [id number]
[2023-08-26 19:06] VITALS: BP 110/83
== END 2023-08-26 18:59 | disposition home or self-care (01) ==
LOC: ED 13:41
DX: N20.1 Calculus of ureter (principal); Z87.442 Personal history of urinary calculi; R10.31 Right lower quadrant pain
CPT/HCPCS: 36415; 74177; 80053; 81001; 81025; 83690; 85025; 96374; 96375; 99284; J1170; J7040; Q9967; 81003; 87086

== ENCOUNTER 2023-09-01 20:41 | Emergency (ER) | payer MEDICAID ==
[2023-09-01 20:48] VITALS: O2SAT 99
--- NOTE | 2023-09-01 21:00 | ED Physician Documentation ---
PD HPI BACK PAIN - Stated complaint Stated Complaint: BACK PX - Chief complaint Chief Complaint: Back Pain - History obtained from History obtained from: Patient - Additional information Additional information: HPI from patient. HPI from patient. Patient complaining of 9 days of waxing and waning right-sided upper paralumbar back pain. This been associate with nausea and vomiting. There are no ex acerbating nor ameliorating factors. She denies urinary frequency, dysuria, hematuria. She denies any anterior abdominal pain. Patient has been evaluated for similar symptoms in this ED in the past, including 08/24/23 and again 08/26/23. There were no remarkable findings on these visits, including CT scan of the abdomen pelvis performed on the 08/26/23 visit (ED MD suspected 2mm distal right ureteral calculus, radiologist only remarks on a left-sided nonobstructing calculus). Patient was prescribed Percocet on the 08/24/23 visit which is not providing adequate relief. Patient has had obstructing right-sided ureteral calculus on CT scan in the past, and she says she had to have lithotripsy for this. Review of Systems Constitutional: denies: Fever, Chills, Sweats Cardiac: reports: Reviewed and negative Respiratory: reports: Reviewed and negative GI: reports: Nausea, Vomiting. 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 HEENT: None Psych: Bipolar disorder Musculoskeletal: None Derm: None - Past Surgical History Past Surgical History: Yes - Present Medications Home Medications: Ambulatory Orders Medication Instructions Recorded Confirmed Venlafaxine [Effexor] 75 mg PO DAILY PM 06/20/20 08/26/23 Oxycodone HCl/Acetaminophen 1 - 2 each PO Q6H PRN #10 tablet 08/24/23 08/26/23 [Percocet 5-325 mg Tablet] Gabapentin [Neurontin] 300 mg PO DAILY 08/26/23 08/26/23 Oxycodone HCl/Acetaminophen 1 - 2 each PO Q6H PRN #14 tablet 09/01/23 [Percocet 5-325 mg Tablet] - Allergies Allergies/Adverse Reactions: Allergies Allergy/AdvReac Type Severity Reaction Status Date / Time amoxicillin Allergy Unknown Verified 08/24/23 18:42 metoclopramide [From Reglan] Allergy Unknown Verified 08/24/23 18:42 tamsulosin [From Flomax] Allergy Unknown Verified 08/24/23 18:42 prochlorperazine AdvReac Anxiety Verified 08/24/23 18:42 [From Compazine] - Social History Does the pt smoke?: No Smoking Status: Never smoker Does the pt drink ETOH?: No Does the pt have substance abuse?: Yes - Immunizations Immunizations are current?: Yes Immunizations: TDAP current <10years - POLST Patient has POLST: No PD ED PE NORMAL - Vitals Vital signs reviewed: Yes - General General: Alert and oriented X 3, No acute distress, Well developed/nourished - Cardiac Cardiac: RRR, No murmur - Respiratory Respiratory: No respiratory distress, Clear bilaterally - Abdomen Abdomen: Normal bowel sounds, Soft, Non tender, Non distended - Back Back: No CVA TTP - Derm Derm: Normal color, Warm and dry, No rash Results - Vitals Vitals: Oxygen O2 Source Room air - Labs Labs: Laboratory Tests 09/01/23 09/01/23 09/01/23 21:00 21:00 21:30 WBC 8.9 RBC 4.16 L Hgb 14.0 Hct 41.9 MCV 100.7 H MCH 33.7 H MCHC 33.4 RDW 13.3 Plt Count 309 MPV 9.9 Neut # (Auto) 3.4 Lymph # (Auto) 4.4 H [place] # (Auto) 0.6 Eos # (Auto) 0.3 Baso # (Auto) 0.1 Absolute Nucleated RBC 0.00 Nucleated RBC % 0.0 Sodium Potassium Chloride Carbon Dioxide Anion Gap BUN Creatinine Estimated GFR (MDRD) Glucose Calcium Total Bilirubin AST ALT Alkaline Phosphatase Total Protein Albumin Globulin Albumin/Globulin Ratio Lipase Urine Color YELLOW Urine Clarity HAZY Urine pH 7.5 Ur Specific [place] 1.015 Urine Protein NEGATIVE Urine Glucose (UA) NEGATIVE Urine Ketones NEGATIVE Urine Occult Blood MODERATE H Urine Nitrite NEGATIVE Urine Bilirubin NEGATIVE Urine Urobilinogen 2 H Ur Leukocyte Esterase NEGATIVE Urine RBC 6-10 H Urine WBC 0-3 Ur Squamous Epith Cells FEW Squamous Amorphous Sediment Moderate Urine Bacteria None Seen Urine Mucus Few Strands Ur Microscopic Review INDICATED Urine Culture Comments NOT INDICATED Urine HCG, Qual NEGATIVE 05/07/24 21:30 WBC RBC Hgb Hct MCV MCH MCHC RDW Plt Count MPV Neut # (Auto) Lymph # (Auto) Grand # (Auto) Eos # (Auto) Baso # (Auto) Absolute Nucleated RBC Nucleated RBC % Sodium 138 Potassium 3.8 Chloride 106 Carbon Dioxide 26 Anion Gap 6.0 BUN 12 Creatinine 0.7 Estimated GFR (MDRD) 98 Glucose 82 Calcium 9.3 Total Bilirubin 0.3 AST 15 ALT 12 Alkaline Phosphatase 59 Total Protein 6.6 Albumin 4.0 Globulin 2.6 Albumin/Globulin Ratio 1.5 Lipase 48 Urine Color Urine Clarity Urine pH Ur Specific [place] Urine Protein Urine Glucose (UA) Urine Ketones Urine Occult Blood Urine Nitrite Urine Bilirubin Urine Urobilinogen Ur Leukocyte Esterase Urine RBC Urine WBC Ur Squamous Epith Cells Amorphous Sediment Urine Bacteria Urine Mucus Ur Microscopic Review Urine Culture Comments Urine HCG, Qual PD Medical Decision Making - ED course Complexity details: reviewed results, re-evaluated patient, considered differ ential, d/w patient ED course: Unremarkable CBC, ER abdominal panel. UA with 6-10 rbc/hpf but otherwise unremarkable (no findings c/w UTI). Patient says she is currently menstruating although could be due to renal colic. Recent CT A/P with possible 2mm right distal ureteral calculus per ED MD's interpretation although not noted on radiologist's interpretation. Further/repeat testing not indicated at this time. Symptoms controlled with dilaudid (1mg IVP x 3), 4mg IV zofran, and 15mg IV Toradol. She is also given 1liter NS IV. Etiology of symptoms not apparent at this time. Abdominal exam is benign, further/repeat testing not indicate at this time. Results d/w patient, return precautions reviewed, provided rx for percocet (says she has a few left from previous ED visit). Advised to seek f/u with PCP and/or urology. Departure - Departure Disposition: 01 Home, Self Care Clinical Impression: Flank pain Condition: Good Instructions: ED Flank Pain Uncertain Cause Follow-Up: TESSA FRAZIER DO [Primary Care Provider] - Prescriptions: Oxycodone HCl/Acetaminophen [Percocet 5-325 mg Tablet] 1 - 2 each PO Q6H PRN #14 tablet PRN Reason: pain Comments: There were no concerning nor diagnostic findings on tonight's tests, including the blood tests and the urinalysis. As we discussed, there was very small amount of blood in the urine (likely due to your menstrual period, although renal colic/kidney stone would also cause this). I have electronically submitted a prescription for Percocet (narcotic/opiate pain medication) to the [facility] pharmacy in [place]. Please continue to pursue follow-up with your primary care provider as soon as can be arranged. I am prescribing a short course of narcotic pain medication for you. These are potentially dangerous and addictive medications that should be used carefully. These medications may constipate you. Take an qldc-rmt-ddakbey stool softener (docusate) twice daily with plenty of water while taking these medications. If you go 24 hours without a bowel movement, take [id number] miralax, per package instructions. Do not drink or drive while taking these medications. If you received narcotic or sedating medications while in the emergency department, do not drive for 24 hours. Store this medication in a safe, secure place and out of reach of children. It is a violation of federal law to give or sell this medication to another person or to use in a manner other than prescribed. The ED will not refill narcotic prescriptions, including prescriptions lost or stolen. To dispose of unwanted medications: 1. [facility] at [address] in [place] has a medication drop box. They accept prescription medications (in pill form) Thursday through Thursday 9:00 a.m. to 5:00 p.m. 2. The [facility] [place] [employer] accepts prescription medications (in pill form only) for disposal year round. Call for more information. 3. Contact the [facility] for the next [facility] sponsored prescription drug collection event. , [phone], or [phone]; Discharge Date/Time: 09/02/23 00:18
[2023-09-01 21:14] LABS: BILIRUBIN,URINE NEGATIVE (NEGATIVE); GLUCOSE, URINE (UA) NEGATIVE (NEGATIVE); KETONES,URINE (UA) NEGATIVE (NEGATIVE); LEUKOCYTE ESTERASE, URINE NEGATIVE (NEGATIVE); NITRITE,URINE NEGATIVE (NEGATIVE); OCCULT BLOOD,URINE MODERATE (NEGATIVE); PH,URINE 7.5 PH (5.0-7.5); PROTEIN,URINE NEGATIVE (NEGATIVE); UROBILINOGEN,URINE 2 E.U./dL (NORMAL)
[2023-09-01 21:24] LABS: CLARITY,URINE HAZY (CLEAR)
[2023-09-01 21:25] LABS: AMORPHOUS SEDIMENT,UR Moderate /LPF; BACTERIA,URINE None Seen /HPF (None Seen); MUCUS,URINE Few Strands; SQUAMOUS EPITHELIAL CELL,UR FEW Squamous (<= Few); WBC,URINE 0-3 /HPF (0-5)
[2023-09-01 21:43] LABS: BASOPHILS # (AUTO) 0.1 10^3/uL (0.0-0.1); BASOPHILS % (AUTO) 0.9 %; EOSINOPHILS # (AUTO) 0.3 10^3/uL (0.0-0.7); EOSINOPHILS % (AUTO) 3.4 %; HCT - HEMATOCRIT 41.9 % (37.0-47.0); LYMPHOCYTES # (AUTO) 4.4 10^3/uL (1.5-3.5); LYMPHOCYTES % (AUTO) 49.9 %; MEAN CORPUSCULAR HEMOGLOBIN 33.7 pg (27.0-31.0); MEAN CORPUSCULAR HGB CONC 33.4 g/dL (32.0-36.0); MEAN CORPUSCULAR VOLUME 100.7 fL (81.0-99.0); MEAN PLATELET VOLUME 9.9 fL (7.9-10.8); MONOCYTES # (AUTO) 0.6 10^3/uL (0.0-1.0); NEUTROPHILS # (AUTO) 3.4 10^3/uL (1.5-6.6); NEUTROPHILS % (AUTO) 38.6 %; PLT - PLATELET COUNT 309 10^3/uL (130-450); RED BLOOD COUNT 4.16 10^6/uL (4.20-5.40); RED CELL DISTRIBUTION WIDTH 13.3 % (12.0-15.0); WHITE BLOOD COUNT 8.9 x10^3/uL (4.8-10.8)
[2023-09-01] MEDS: ONDANSETRON 4 MG/2 ML VIAL IVP STA (21:43)
[2023-09-01] MEDS: KETOROLAC 15 MG/ML VIAL IVP STA (21:43)
[2023-09-01] MEDS: HYDROmorphone 1 MG/ML CARPUJECT IVP STA ×2 (21:43→23:28)
[2023-09-01] MEDS: SODIUM CHLORIDE 0.9% 1,000 ML IV STA (21:44)
[2023-09-01 21:54] LABS: HCG UR QUAL NEGATIVE
[2023-09-01 21:59] LABS: ALBUMIN/GLOBULIN RATIO 1.5 (1.0-2.2); BILIRUBIN,TOTAL 0.3 mg/dL (0.2-1.0); CALCIUM 9.3 mg/dL (8.5-10.3); CREATININE 0.7 mg/dL (0.6-1.3); POTASSIUM 3.8 mmol/L (3.5-4.5); TOTAL PROTEIN 6.6 g/dL (6.4-8.9)
[2023-09-02] MEDS ORDERED: HYDROmorphone 1 MG/ML CARPUJECT ONE
[2023-09-02] MEDS: HYDROmorphone 1 MG/ML CARPUJECT IVP STA (00:04)
[2023-09-02 00:19] VITALS: BP 127/66
== END 2023-09-02 00:18 | disposition home or self-care (01) ==
LOC: ED 20:41
DX: R10.9 Unspecified abdominal pain (principal); Z79.899 Other long term (current) drug therapy
CPT/HCPCS: 36415; 80053; 81001; 81025; 83690; 85025; 96374; 96376; 99283; 99284; J1170; 81003; 87086

== ENCOUNTER 2023-11-08 19:14 | Emergency (ER) | payer MEDICAID ==
[2023-11-08 19:45] LABS: BASOPHILS # (AUTO) 0.1 10^3/uL (0.0-0.1); BASOPHILS % (AUTO) 1.4 %; EOSINOPHILS # (AUTO) 0.4 10^3/uL (0.0-0.7); EOSINOPHILS % (AUTO) 5.5 %; HCT - HEMATOCRIT 42.6 % (37.0-47.0); HGB - HEMOGLOBIN 13.6 g/dL (12.0-16.0); LYMPHOCYTES # (AUTO) 3.3 10^3/uL (1.5-3.5); LYMPHOCYTES % (AUTO) 43.6 %; MEAN CORPUSCULAR HEMOGLOBIN 32.5 pg (27.0-31.0); MEAN CORPUSCULAR HGB CONC 31.9 g/dL (32.0-36.0); MEAN CORPUSCULAR VOLUME 101.9 fL (81.0-99.0); MONOCYTES # (AUTO) 0.5 10^3/uL (0.0-1.0); MONOCYTES % (AUTO) 6.8 %; NEUTROPHILS # (AUTO) 3.2 10^3/uL (1.5-6.6); NEUTROPHILS % (AUTO) 42.4 %; PLT - PLATELET COUNT 306 10^3/uL (130-450); RED BLOOD COUNT 4.18 10^6/uL (4.20-5.40); RED CELL DISTRIBUTION WIDTH 13.2 % (12.0-15.0); WHITE BLOOD COUNT 7.6 x10^3/uL (4.8-10.8)
[2023-11-08 19:54] LABS: BILIRUBIN,URINE SMALL (NEGATIVE); GLUCOSE, URINE (UA) NEGATIVE (NEGATIVE); KETONES,URINE (UA) TRACE mg/dL (NEGATIVE); LEUKOCYTE ESTERASE, URINE NEGATIVE (NEGATIVE); NITRITE,URINE NEGATIVE (NEGATIVE); OCCULT BLOOD,URINE LARGE (NEGATIVE); PH,URINE 5.5 PH (5.0-7.5); PROTEIN,URINE 30 mg/dL (NEGATIVE); UROBILINOGEN,URINE 0.2 (NORMAL) E.U./dL (NORMAL)
[2023-11-08 19:56] LABS: CLARITY,URINE CLEAR (CLEAR); HCG UR QUAL NEGATIVE
[2023-11-08 19:58] LABS: ALBUMIN 4.6 g/dL (3.2-5.5); ALBUMIN/GLOBULIN RATIO 1.5 (1.0-2.2); BILIRUBIN,TOTAL 0.4 mg/dL (0.2-1.0); CALCIUM 9.5 mg/dL (8.5-10.3); CREATININE 0.7 mg/dL (0.6-1.3); POTASSIUM 3.5 mmol/L (3.5-4.5); TOTAL PROTEIN 7.6 g/dL (6.4-8.9)
[2023-11-08 20:04] LABS: BACTERIA,URINE Few /HPF (None Seen); SQUAMOUS EPITHELIAL CELL,UR FEW Squamous (<= Few); WBC,URINE 0-3 /HPF (0-5)
[2023-11-08 20:05] LABS: EPITHELIAL CELLS,UR FEW Transitional /HPF (<= Few)
--- NOTE | 2023-11-08 20:54 | ED Physician Documentation ---
History of Present Illness - Stated complaint Stated Complaint: BACK PX, N/V - Chief complaint Chief Complaint: Abd Pain - History obtained from History obtained from: Patient - Additonal information Additional information: The patient comes to the emergency department chief complaint of left flank pain that started 2 days ago and has migrated into her left pelvic area since. She states that it started as just a twinge but felt similar to when she has had kidney stones before. She has not noticed any devan blood in her urine or any dysuria but just feels pressure when she urinates. She states that today after urinating, she felt a significant increase in the pain and finally decided to come in. She denies any fevers or chills. She states she has been vomiting on and off and did vomit after her pain increased. She has not been able to hold any fluid down and states that her urine has been dark because not drinking anything. Patient states she is otherwise fairly healthy. No other complaints at this time. 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 HEENT: None Psych: Bipolar disorder Musculoskeletal: None Derm: None - Past Surgical History Past Surgical History: Yes - Present Medications Home Medications: Ambulatory Orders Medication Instructions Recorded Confirmed Venlafaxine [Effexor] 75 mg PO DAILY PM 06/20/20 08/26/23 Oxycodone HCl/Acetaminophen 1 - 2 each PO Q6H PRN #10 tablet 08/24/23 08/26/23 [Percocet 5-325 mg Tablet] Gabapentin [Neurontin] 300 mg PO DAILY 08/26/23 08/26/23 Oxycodone HCl/Acetaminophen 1 - 2 each PO Q6H PRN #14 tablet 09/01/23 [Percocet 5-325 mg Tablet] - Allergies Allergies/Adverse Reactions: Allergies Allergy/AdvReac Type Severity Reaction Status Date / Time amoxicillin Allergy Unknown Verified 11/08/23 20:23 metoclopramide [From Reglan] Allergy Unknown Verified 11/08/23 20:23 tamsulosin [From Flomax] Allergy Unknown Verified 11/08/23 20:23 prochlorperazine AdvReac Anxiety Verified 11/08/23 20:23 [From Compazine] - Social History Does the pt smoke?: No Smoking Status: Never smoker Does the pt drink ETOH?: No Does the pt have substance abuse?: Yes - Immunizations Immunizations are current?: Yes Immunizations: TDAP current <10years - POLST Patient has POLST: No PD ED PE NORMAL - Vitals Vital signs reviewed: Yes - General General: Alert and oriented X 3, No acute distress, Well developed/nourished - HEENT HEENT: Atraumatic, PERRL, EOMI, Moist mucous membranes - Neck Neck: Supple, no meningeal sign - Cardiac Cardiac: RRR, No murmur - Respiratory Respiratory: No respiratory distress, Clear bilaterally - Abdomen Abdomen: Soft, Non tender, Non distended - Back Back: No CVA TTP - Derm Derm: Normal color, Warm and dry - Extremities Extremities: No deformity - Neuro Neuro: Alert and oriented X 3 - Psych Psych: Normal mood, Normal affect Results - Vitals Vitals: Oxygen O2 Source Room air - Labs Labs: Laboratory Tests 11/08/23 11/08/23 11/08/23 19:35 19:41 19:41 WBC 7.6 RBC 4.18 L Hgb 13.6 Hct 42.6 MCV 101.9 H MCH 32.5 H MCHC 31.9 L RDW 13.2 Plt Count 306 MPV 10.0 Neut # (Auto) 3.2 Lymph # (Auto) 3.3 [place] # (Auto) 0.5 Eos # (Auto) 0.4 Baso # (Auto) 0.1 Absolute Nucleated RBC 0.00 Nucleated RBC % 0.0 Sodium 138 Potassium 3.5 Chloride 107 Carbon Dioxide 25 Anion Gap 6.0 BUN 11 Creatinine 0.7 Estimated GFR (MDRD) 98 Glucose 62 L Calcium 9.5 Total Bilirubin 0.4 AST 13 ALT 10 Alkaline Phosphatase 67 Total Protein 7.6 Albumin 4.6 Globulin 3.0 Albumin/Globulin Ratio 1.5 Lipase 77 Urine Color YELLOW Urine Clarity CLEAR Urine pH 5.5 Ur Specific [place] >=1.030 H Urine Protein 30 H Urine Glucose (UA) NEGATIVE Urine Ketones TRACE Urine Occult Blood LARGE H Urine Nitrite NEGATIVE Urine Bilirubin SMALL H Urine Urobilinogen 0.2 (NORMAL) Ur Leukocyte Esterase NEGATIVE Urine RBC 6-10 H Urine WBC 0-3 Ur Epithelial Cells FEW Transitional Ur Squamous Epith Cells FEW Squamous Urine Crystals 6-10 Calcium Oxalate Urine Bacteria Few Ur Microscopic Review INDICATED Urine Culture Comments NOT INDICATED Urine HCG, Qual NEGATIVE PD Medical Decision Making - ED course Complexity details: reviewed results, re-evaluated patient, considered differential, d/w patient ED course: The patient was worked up with labs, urinalysis which did show blood, and ultimately, CT scan of the abdomen pelvis with no contrast. She was treated symptomatically with IV fluids, Zofran, Toradol, and Dilaudid. CT was negative. I discussed with the patient that the past few CTs have not shown kidney stones, and that I am not sure what is causing the pt's recurrent back pain episodes. I have advised her to follow up with her urologist and PCP to discuss further evaluation of her hematuria and episodic back pain. Departure - Departure Disposition: 01 Home, Self Care Clinical Impression: Back pain Qualifiers: Back pain location: low back pain Chronicity: acute Back pain laterality: left Sciatica presence: without sciatica Qualified Code(s): M54.50 - Low back pain, unspecified Hematuria Qualifiers: Hematuria type: other microscopic Qualified Code(s): R31.29 - Other microscopic hematuria Condition: Stable Instructions: ED Neck Back Pain General Comments: No kidney stone that is passing has been seen on your CT scan today. Your CT scan looks about the same as the last few have looked. Although there was some question by previous emergency physicians as to whether you might have a stone passing, the radiologist has called it negative every time in this regard. You do have some stones sitting up in your kidneys, but these do not appear to be passing this time. It is not clear what is causing your back pain. You will definitely need to follow-up with your primary doctor and possibly urology to try to get to the bottom of all this. You do have some microscopic blood in your urine, so it is possible that a small piece of the stone just recently passed and you are still having some spasm of the tube from this. You have been treated with medication for pain and nausea tonight. Please follow-up with your primary doctor as soon as possible for any further pain control needs. Forms: PCP List Discharge Date/Time: 11/09/23 00:07
[2023-11-08] MEDS: KETOROLAC 30 MG/ML VIAL IVP STA (21:02)
[2023-11-08] MEDS: ONDANSETRON 4 MG/2 ML VIAL IVP STA (21:02)
[2023-11-08] MEDS: HYDROmorphone 1 MG/ML CARPUJECT IVP STA ×2 (21:02→22:52)
[2023-11-08] MEDS: SODIUM CHLORIDE 0.9% 1,000 ML IV STA (21:02)
--- NOTE | 2023-11-08 22:19 | CT Report ---
PROCEDURE: Abdomen/Pelvis WO INDICATIONS: L flank pain TECHNIQUE: A CT scan of the abdomen and pelvis was performed without the use of intravenous contrast. Images we re recorded and evaluated at appropriate window settings. Reformats: coronal and sagittal. For radiat ion dose reduction, the following was used: automated exposure control, adjustment of mA and/or kV ac cording to patient size. COMPARISON: CT abdomen pelvis 08/26/2023 FINDINGS: Image quality: Diagnostic. Lower chest: Unremarkable. Liver: No contour-deforming mass. Gallbladder: Unremarkable Biliary tree: No intrahepatic or extrahepatic dilation, accounting for age. Spleen: No splenomegaly. Pancreas: No pancreatic ductal dilation. Adrenals: No adrenal nodule. Kidneys and ureters: No hydronephrosis. No contour-deforming mass. Unchanged nonobstructing right doris al calculi. Stomach, bowel and peritoneum: No gastric or small bowel dilation. No abnormal wall thickening. No pa thologic free fluid. Lymph nodes: No central or retroperitoneal adenopathy. Vessels: No infrarenal aortic aneurysm. Reproductive organs: Unremarkable. Bladder: Bladder wall thickness is normal, accounting for underdistention. No calcified bladder stone s. Pelvic lymph nodes: No adenopathy by size criteria. Bones: No aggressive osseous abnormality. Other: No significant ventral or inguinal hernia. IMPRESSION: No hydronephrosis or obstructing renal stone. Unchanged subcentimeter left renal calculi. Reviewed by: Araseli Pardo MD on 11/08/2023 10:18 PM PDT Approved by: Araseli Pardo MD on 11/08/2023 10:18 PM PDT Station ID: [id number]
[2023-11-08 23:29] VITALS: BP 106/60; O2SAT 99
== END 2023-11-09 00:07 | disposition home or self-care (01) ==
LOC: ED 19:14
DX: M54.50 Low back pain, unspecified (principal); R31.29 Other microscopic hematuria; Z87.442 Personal history of urinary calculi
CPT/HCPCS: 36415; 74176; 80053; 81001; 81025; 83690; 85025; 96374; 96376; 99283; 99284; J1170; 81003; 87086

== ENCOUNTER 2023-12-06 01:32 | Emergency (ER) | payer MEDICAID ==
[2023-12-06 02:02] LABS: BASOPHILS # (AUTO) 0.1 10^3/uL (0.0-0.1); BASOPHILS % (AUTO) 0.8 %; EOSINOPHILS # (AUTO) 0.2 10^3/uL (0.0-0.7); EOSINOPHILS % (AUTO) 2.3 %; HCT - HEMATOCRIT 40.1 % (37.0-47.0); LYMPHOCYTES # (AUTO) 3.9 10^3/uL (1.5-3.5); LYMPHOCYTES % (AUTO) 39.2 %; MEAN CORPUSCULAR HEMOGLOBIN 32.7 pg (27.0-31.0); MEAN CORPUSCULAR HGB CONC 32.4 g/dL (32.0-36.0); MEAN PLATELET VOLUME 9.8 fL (7.9-10.8); MONOCYTES # (AUTO) 0.7 10^3/uL (0.0-1.0); MONOCYTES % (AUTO) 7.2 %; NEUTROPHILS % (AUTO) 50.2 %; PLT - PLATELET COUNT 279 10^3/uL (130-450); RED BLOOD COUNT 3.97 10^6/uL (4.20-5.40); RED CELL DISTRIBUTION WIDTH 13.2 % (12.0-15.0); WHITE BLOOD COUNT 9.9 x10^3/uL (4.8-10.8)
[2023-12-06] MEDS: LIDOCAINE PATCH 4% TOP STA (02:11)
[2023-12-06] MEDS: methocarbamoL 500 MG TABLET PO STA (02:11)
[2023-12-06] MEDS: KETOROLAC 15 MG/ML VIAL IVP STA (02:12)
[2023-12-06] MEDS: ACETAMINOPHEN 1,000 MG/100 ML 1,000 MG/100 ML BAG IV ONE (02:12)
[2023-12-06] MEDS: DEXAMETHASONE 10 MG/ML VIAL IVP STA (02:13)
[2023-12-06 02:17] LABS: ALBUMIN 4.2 g/dL (3.2-5.5); ALBUMIN/GLOBULIN RATIO 1.4 (1.0-2.2); BILIRUBIN,TOTAL 0.4 mg/dL (0.2-1.0); CALCIUM 9.7 mg/dL (8.5-10.3); CREATININE 0.6 mg/dL (0.6-1.3); POTASSIUM 3.4 mmol/L (3.5-4.5); TOTAL PROTEIN 7.2 g/dL (6.4-8.9)
[2023-12-06 02:24] LABS: BILIRUBIN,URINE NEGATIVE (NEGATIVE); GLUCOSE, URINE (UA) NEGATIVE (NEGATIVE); KETONES,URINE (UA) NEGATIVE (NEGATIVE); LEUKOCYTE ESTERASE, URINE TRACE (NEGATIVE); NITRITE,URINE POSITIVE (NEGATIVE); OCCULT BLOOD,URINE TRACE-INTA (NEGATIVE); PROTEIN,URINE NEGATIVE (NEGATIVE); UROBILINOGEN,URINE 0.2 (NORMAL) E.U./dL (NORMAL)
[2023-12-06 02:39] LABS: CLARITY,URINE HAZY (CLEAR)
[2023-12-06 02:40] LABS: BACTERIA,URINE Many /HPF (None Seen); HCG UR QUAL NEGATIVE; RBC,URINE 0-5 /HPF (0-5); SQUAMOUS EPITHELIAL CELL,UR FEW Squamous (<= Few); WBC,URINE 0-3 /HPF (0-5)
[2023-12-06] MEDS ORDERED: LIDOCAINE-MPF 2% 0 ML in SODIUM CHLORIDE 0.9% 50 ML IV STA (02:46)
--- NOTE | 2023-12-06 03:12 | ED Physician Documentation ---
History of Present Illness - Stated complaint Stated Complaint: BACK PX/N/V - Chief complaint Chief Complaint: Back Pain - History obtained from History obtained from: Patient - Additonal information Additional information: 28-year-old female presents from home by private vehicle for right sided flank pain. Patient states that this is the same pain that she has been to the emergency department several times in the past for. She states that she has a history of kidney stones, and previously has required lithotripsy for stone removal. Took tylenol and ibuprofen for pain at home, yesterday took one of her brother's tramadol. 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 HEENT: None Psych: Bipolar disorder Musculoskeletal: None Derm: None - Past Surgical History Past Surgical History: Yes - Present Medications Home Medications: Ambulatory Orders Medication Instructions Recorded Confirmed Cyclobenzaprine [Flexeril] 10 mg PO TID PRN #20 tablet 12/06/23 Sulfamethox/Trimeth 800/160 1 each PO BID #20 tablet 12/06/23 [Bactrim Ds 800/160] - Allergies Allergies/Adverse Reactions: Allergies Allergy/AdvReac Type Severity Reaction Status Date / Time amoxicillin Allergy Unknown Verified 12/06/23 01:40 metoclopramide [From Reglan] Allergy Unknown Verified 12/06/23 01:40 tamsulosin [From Flomax] Allergy Unknown Verified 12/06/23 01:40 prochlorperazine AdvReac Anxiety Verified 12/06/23 01:40 [From Compazine] - Social History Does the pt smoke?: No Smoking Status: Never smoker Does the pt drink ETOH?: No Does the pt have substance abuse?: Yes - Immunizations Immunizations are current?: Yes Immunizations: TDAP current <10years - POLST Patient has POLST: No PD ED PE NORMAL - Vitals Vital signs reviewed: Yes - General General: Alert and oriented X 3, No acute distress - Cardiac Cardiac: RRR, Strong equal pulses - Respiratory Respiratory: No respiratory distress, Clear bilaterally - Abdomen Abdomen: Soft, Non tender, Non distended - Back Back: No CVA TTP, No spinal TTP, Other (point tenderness R paraspinal region) - Derm Derm: Normal color, Warm and dry, No rash - Neuro Neuro: Alert and oriented X 3, 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, No motor deficit, Normal speech Results - Vitals Vitals: Vital Signs - 24 hr 12/06/23 12/06/23 01:36 02:21 Temperature 37.0 C Heart Rate 76 76 Respiratory 16 Rate Blood Pressure 102/65 O2 Saturation 100 Oxygen O2 Source Room air - Labs Labs: Laboratory Tests 12/06/23 12/06/23 12/06/23 01:45 01:45 01:48 WBC 9.9 RBC 3.97 L Hgb 13.0 Hct 40.1 MCV 101.0 H MCH 32.7 H MCHC 32.4 RDW 13.2 Plt Count 279 MPV 9.8 Neut # (Auto) 5.0 Lymph # (Auto) 3.9 H [place] # (Auto) 0.7 Eos # (Auto) 0.2 Baso # (Auto) 0.1 Absolute Nucleated RBC 0.00 Nucleated RBC % 0.0 Sodium Potassium Chloride Carbon Dioxide Anion Gap BUN Creatinine Estimated GFR (MDRD) Glucose Calcium Total Bilirubin AST ALT Alkaline Phosphatase Total Protein Albumin Globulin Albumin/Globulin Ratio Lipase Urine Color YELLOW Urine Clarity HAZY Urine pH 7.0 Ur Specific [place] 1.020 Urine Protein NEGATIVE Urine Glucose (UA) NEGATIVE Urine Ketones NEGATIVE Urine Occult Blood TRACE-INTA Urine Nitrite POSITIVE H Urine Bilirubin NEGATIVE Urine Urobilinogen 0.2 (NORMAL) Ur Leukocyte Esterase TRACE H Urine RBC 0-5 Urine WBC 0-3 Ur Squamous Epith Cells FEW Squamous Urine Bacteria Many H Ur Microscopic Review INDICATED Urine Culture Comments INDICATED Urine HCG, Qual NEGATIVE 12/06/23 01:48 WBC RBC Hgb Hct MCV MCH MCHC RDW Plt Count MPV Neut # (Auto) Lymph # (Auto) [place] # (Auto) Eos # (Auto) Baso # (Auto) Absolute Nucleated RBC Nucleated RBC % Sodium 138 Potassium 3.4 L Chloride 106 Carbon Dioxide 25 Anion Gap 7.0 BUN 10 Creatinine 0.6 Estimated GFR (MDRD) 117 Glucose 94 Calcium 9.7 Total Bilirubin 0.4 AST 11 ALT 9 L Alkaline Phosphatase 59 Total Protein 7.2 Albumin 4.2 Globulin 3.0 Albumin/Globulin Ratio 1.4 Lipase 258 H Urine Color Urine Clarity Urine pH Ur Specific [place] Urine Protein Urine Glucose (UA) Urine Ketones Urine Occult Blood Urine Nitrite Urine Bilirubin Urine Urobilinogen Ur Leukocyte Esterase Urine RBC Urine WBC Ur Squamous Epith Cells Urine Bacteria Ur Microscopic Review Urine Culture Comments Urine HCG, Qual PD Medical Decision Making - ED course Complexity details: reviewed old records, reviewed results, re-evaluated patient, considered differential, d/w patient ED course: 28-year-old female presenting for right sided paraspinal pain. Reports history of kidney stones. Record review shows that patient did have UPJ stone in February 2022, however since then has had multiple visits to this emergency department for flank pain. Patient has had multiple CT abdomen/pelvis scans, 12/07/22, 03/05/23, 06/08/23, 08/26/23, and most recently 11/08/23. All of these have shown a stable 4 mm left renal calculus without obstruction. Patient additionally presented to the ED 08/23 and 08/31 for flank pain. Each visit patient received IV narcotics and all but one visit was discharged with narcotic prescription. Patient states her PCP told her to come to the ED if her pain can't be controlled with tylenol and motrin. She has not discussed pain management options with him. Laboratory work reviewed, elevation in lipase compared to prior, nonspecific. Other labs including kidney function normal. Patient has already had [address] scans in the last 3 months. She states her pain is the same as those times. Based on unremarkable exam and similar previous presentations will not repeat imaging at this time. UA with nitrates, leukocyte esterase, wbcs, and bacteria. Treated as UTI with rocephin, abx sent to pharmacy of choice. Patient was counseled at bedside on the importance of following up with her primary care doctor. She has been to the emergency department multiple times for pain and would likely benefit from pain management through her primary care doctor, or even need referral to pain management doctor for her recurrent, unexplained flank pain. Based on patient's multiple negative workups, multiple previous narcotic prescriptions, I do not feel comfortable prescribing additional narcotics at this time. Departure - Departure Disposition: 01 Home, Self Care Clinical Impression: Back pain, UTI (urinary tract infection) Condition: Stable Instructions: ED Chronic Pain Management Prescriptions: Sulfamethox/Trimeth 800/160 [Bactrim Ds 800/160] 1 each PO BID #20 tablet Cyclobenzaprine [Flexeril] 10 mg PO TID PRN #20 tablet PRN Reason: Spasms Comments: Your laboratory work today is unchanged from your priors. It does appear that you have a urinary tract infection today, which may in someway be contributing to your symptoms, however this does not appear to be a kidney stone at this time. Medications for muscle spasms and antibiotics have been sent to your pharmacy. You have received multiple narcotic medication prescriptions from the ER in the past, I do not feel it is appropriate to fill more narcotics at this time. You will need to talk to your primary care doctor about regular pain management in the future. Muscle relaxers have been sent to your pharmacy, you may take these with Tylenol and ibuprofen for pain.
[2023-12-06] MEDS: cefTRIAXone 1 GM VIAL IVP STA (03:22)
[2023-12-06 03:33] VITALS: BP 110/66; O2SAT 98
== END 2023-12-06 03:27 | disposition home or self-care (01) ==
LOC: ED 01:32
DX: N39.0 Urinary tract infection, site not specified (principal); R10.31 Right lower quadrant pain; Z87.442 Personal history of urinary calculi
CPT/HCPCS: 36415; 80053; 81001; 81025; 83690; 85025; 87086; 87181; 96365; 96375; 99283; A9270; J0131; 81003

== ENCOUNTER 2024-04-18 21:54 | Observation (INO) ==
--- NOTE | 2024-04-18 22:14 | ED Physician Documentation ---
History of Present Illness Stated complaint Stated Complaint: VOMITING Chief complaint Chief Complaint: Abd Pain Additonal information Additional information: G1 at 14 weeks gestation presents with persistent vomiting despite taking Phenergan and Zofran and dicyclomine. She has a listed allergy to Reglan but is willing to try it if pretreated with Benadryl. Denies abdominal pain, bleeding, fluid loss. She vacillates as to whether or not she is desirous of this . Meds/Allgy Home Medications Ambulatory Orders Medication Instructions Recorded Confirmed bupropion HCl 150 mg tablet,12 hr 150 mg PO QDAY #90 tabs 03/31/24 04/14/24 sustained-release (Wellbutrin SR) vitamins no.159-iron 1 tab PO 03/31/24 03/31/24 fumarate 28 mg-folic acid 800 mcg tablet ( Vitamin) cephalexin 500 mg capsule 500 mg PO Q6H 7 days #28 caps 04/04/24 04/14/24 pyridoxine (vitamin B6) 100 mg 100 mg PO QID 04/14/24 04/14/24 tablet Allergies Allergies Allergy/AdvReac Type Severity Reaction Status Date / Time coconut Allergy Intermediate Hives Verified 04/18/24 22:00 amoxicillin Allergy Unknown Verified 04/18/24 22:00 metoclopramide (From Reglan) Allergy Unknown Verified 04/18/24 22:00 tamsulosin (From Flomax) Allergy Unknown Verified 04/18/24 22:00 prochlorperazine (From AdvReac Anxiety Verified 04/18/24 22:00 Compazine) [facility] Medical History Medical History (Updated 04/18/24 @ 23:04 by Marquis Figueroa MD) Convulsive syncope No pertinent past medical history Surgical History Surgical History (Updated 04/15/24 @ 12:08 by Shayna Jeff RN) H/O lithotripsy Family History Family History (Updated 03/11/24 @ 13:52 by Cathie Eastman RN) Mother Asthma COPD (chronic obstructive pulmonary disease) Father COPD (chronic obstructive pulmonary disease) Brother Diabetes Social History Social History Smoking Status: Never smoker Do you vape?: Yes Patient requests smoking cessation consult: Yes Initiate information on smoking cessation: Yes Living arrangement: Other Relationship: Do you feel safe in your home environment?: Yes Suffered physical, verbal, emotional, or financial abuse?: No History of Abuse: No Substance Use: cannabis (any form) Are you sexually active?: Yes Occupation: [employer] Patient has POLST: No Exam Constitutional normal general appearance Tearful but not actively vomiting. HENMT oropharynx normal Gastrointestinal abdomen normal to inspection and abdomen soft to palpation Bedside ultrasound demonstrates single live intrauterine with heart rate of 154 and positive motion. Results Vitals Vitals: Vital Signs - 24 hr 04/18/24 22:00 04/18/24 22:44 Temperature 36.5 C Temperature Source Tympanic Pulse Rate 88 60 Respiratory Rate 16 20 Blood Pressure 106/63 102/60 O2 Saturation 96 99 O2 Source Room air Room air Pain Intensity 6 0 Oxygen O2 Source Room air Labs Labs: Laboratory Tests 04/18/24 22:30 Sodium 137 Potassium 3.2 L Chloride 105 Carbon Dioxide 22 Anion Gap 10.0 BUN 5 L Creatinine 0.5 L Estimated GFR (MDRD) 145 Glucose 78 Calcium 9.1 Total Bilirubin 0.4 AST 12 ALT 9 L Alkaline Phosphatase 53 Total Protein 6.7 Albumin 3.9 Globulin 2.8 Albumin/Globulin Ratio 1.4 Lipase 30 Urine Color YELLOW Urine Clarity SL Urine pH 6.5 Ur Specific [place] 1.025 Urine Protein TRACE Urine Glucose (UA) NEGATIVE Urine Ketones >=80 H Urine Occult Blood MODERATE H Urine Nitrite POSITIVE H Urine Bilirubin NEGATIVE Urine Urobilinogen 0.2 (NORMAL) Ur Leukocyte Esterase TRACE H Urine RBC 6-10 H Urine WBC 11-25 H Urine WBC Clumps PRESENT Ur Squamous Epith Cells FEW Squamous Urine Bacteria Many H Urine Mucus Few Strands Ur Microscopic Review INDICATED Urine Culture Comments INDICATED PD Medical Decision Making ED course ED course: G1 at about 14 weeks with persistent vomiting. Benign exam. Reassuring bedside ultrasound. She does have pyuria, will treat Rocephin. On recheck at 11 PM her nausea was better but she was having an akathisia despite pretreatment with Benadryl and would like a second dose of Benadryl. Her CMP was notable for mild hypokalemia which I will treat orally. Care to overnight emergency physician shortly after 11 PM to reevaluate after above interventions. Discharge Plan Discharge Condition: Stable Clinical Impression: First trimester , Nausea and vomiting during UTI (urinary tract infection) Qualifiers: Urinary tract infection type: acute cystitis Hematuria presence: with hematuria Qualified Code(s): N30.01 - Acute cystitis with hematuria Prescriptions: No Action cephalexin 500 mg capsule 500 mg PO Q6H 7 Days Qty: 28 0RF pyridoxine (vitamin B6) 100 mg tablet 100 mg PO QID Vitamin 28 mg iron- 800 mcg tablet 1 tab PO bupropion HCl [Wellbutrin SR] 150 mg tablet sustained-release 12 hr 150 mg PO QDAY Qty: 90 3RF Print Language: Northern Irish Stand Alone Forms: PCP List
[2024-04-18] MEDS: METOCLOPRAMIDE 10 MG/2 ML VIAL IVP STA (22:35)
[2024-04-18] MEDS: diphenhydrAMINE INJ 50 MG/ML VIAL IVP STA ×2 (22:36→23:19)
[2024-04-18] MEDS: SODIUM CHLORIDE 0.9% 1,000 ML IV STA (22:36)
[2024-04-18 22:43] LABS: BILIRUBIN,URINE NEGATIVE (NEGATIVE); GLUCOSE, URINE (UA) NEGATIVE (NEGATIVE); KETONES,URINE (UA) >=80 mg/dL (NEGATIVE); LEUKOCYTE ESTERASE, URINE TRACE (NEGATIVE); NITRITE,URINE POSITIVE (NEGATIVE); OCCULT BLOOD,URINE MODERATE (NEGATIVE); PH,URINE 6.5 PH (5.0-7.5); PROTEIN,URINE TRACE mg/dL (NEGATIVE); UROBILINOGEN,URINE 0.2 (NORMAL) E.U./dL (NORMAL)
[2024-04-18 22:54] LABS: ALBUMIN 3.9 g/dL (3.2-5.5); ALBUMIN/GLOBULIN RATIO 1.4 (1.0-2.2); BILIRUBIN,TOTAL 0.4 mg/dL (0.2-1.0); CALCIUM 9.1 mg/dL (8.5-10.3); CREATININE 0.5 mg/dL (0.6-1.3); POTASSIUM 3.2 mmol/L (3.5-4.5); TOTAL PROTEIN 6.7 g/dL (6.4-8.9)
[2024-04-18 22:56] LABS: CLARITY,URINE SL (CLEAR)
[2024-04-18 22:57] LABS: BACTERIA,URINE Many /HPF (None Seen); MUCUS,URINE Few Strands; SQUAMOUS EPITHELIAL CELL,UR FEW Squamous (<= Few); WBC CLUMPS,URINE PRESENT
[2024-04-18] MEDS: POTASSIUM BICARB 25 MEQ TABLET PO STA (23:19)
[2024-04-18] MEDS: cefTRIAXone 1 GM VIAL IVP STA (23:19)
--- NOTE | 2024-04-18 23:57 | ED Physician Documentation ---
ED Addendum Addendum Addendum: I received signout/turnover of care on this patient from Dr. Figueroa; please see his note for complete H&P. In brief, patient presented with complaint of nausea and vomiting. She is 13 weeks 2 days , prima . Patient tells me that she has had varying degrees of nausea since the beginning of her , but over the past 48 hours the nausea and vomiting have become more persistent and severe and that she has not been able to tolerate any p.o. including liquids for approximately 24 hours CELL PREPARERSophia Leigh's ED workup reveals mild hypokalemia (3.2 potassium). At the time of signout, the patient has been given Reglan and subsequently Benadryl (for akathisia) and p.o. potassium bicarbonate has been ordered. Early in my shift, patient's ED RN informed me that the patient was asking for more antinausea medication and I ordered 4 mg IV Zofran. I reevaluated the patient and discussed with discharge plans; however, she tells me that she was unable to tolerate even a sip of the potassium bicarbonate (even after the IV zofran) due to nausea and vomiting when she tried to do so. I thus ordered a second dose of 4 mg IV Zofran and she was subsequently given p.o. challenge (liquids) which again resulted in nausea and vomiting. Patient expresses discomfort with being discharged home due to ongoing vomiting and, given recurrent vomiting despite 3 doses of IV anti-nausea medications in the ED, admission for ongoing antinauseants and IV fluids is appropriate. I discussed this case with on-call PRODUCT SAFETY COMPLIANCE LEADER (Dr. Belle) who will come to the emergency department later this morning to evaluate patient with plan to admit for observation. Discharge Plan Discharge Patient Disposition: ED Place in Observation Condition: Stable Clinical Impression: First trimester , UTI (urinary tract infection), Nausea and vomiting during Prescriptions: No Action cephalexin 500 mg capsule 500 mg PO Q6H 7 Days Qty: 28 0RF pyridoxine (vitamin B6) 100 mg tablet 100 mg PO QID Vitamin 28 mg iron- 800 mcg tablet 1 tab PO bupropion HCl [Wellbutrin SR] 150 mg tablet sustained-release 12 hr 150 mg PO QDAY Qty: 90 3RF Print Language: Romanian Stand Alone Forms: PCP List
[2024-04-19] MEDS: POTASSIUM CHLOR 10 MEQ/100 ML 10 MEQ/100 ML BAG IV STA (02:20)
[2024-04-19] MEDS: ONDANSETRON 4 MG/2 ML VIAL IVP STA ×2 (02:21→04:05)
[2024-04-19] MEDS: SODIUM CHLORIDE 0.9% 1,000 ML IV STA (07:58)
--- NOTE | 2024-04-19 08:06 | HISTORY & PHYSICAL EXAMINATION ---
Admit History Smoking Status: Never smoker Other Maternal History Other Maternal History: Alicja is a 28yo now 14+4 weeks gestation, presents to ED for intractable nausea and vomiting, inability to tolerate oral hydration, electrolyte imbalance. She is at the hospital today with her supportive Mother. Presenting symptoms - Intense nausea episodes, most recent starting 2 days ago - Weakness and dizziness - Constant sensation of pit in stomach, feeling of tight squeezing - diarrhea. incontinence episode overnight. - No recent changes in condition - No sick contacts at home - anxiety about going home and recurrent symptoms - Endorses marijuana use, last approximately 2 days ago. Denies any history of hyperemesis with cessation or resuming cannabinoid. - hx of recurrent utis. Was treated in ED with single dose of rocephin for pyruia. Rx for keflex prescribed as part of preceding ED visit. Will continue PO keflex if tolerated. Psychiatric history. Presented to ED last week, for suicide ideation. Self admission to [facility] services. Met with crisis responder who shared with her and her Mother that she was safer at home with her Mom then in the facility. No changes to behavioral health medications at that time. Current medications - Claritin - vitamins - B6 - Wellbutrin - Unisom Allergy to Reglan. Was willing to try reglan in the ED when premeditated with Benadryl. Patient concerns - Desires to be admitted to observation on Labor and delivery for IV hydration HPI Current : Vital Signs Temperature 36.5 C 04/18/24 22:00 Pulse Rate 88 04/18/24 22:00 Respiratory Rate 16 04/18/24 22:00 Blood Pressure 106/63 04/18/24 22:00 O2 Saturation 96 04/18/24 22:00 Temperature 36.5 C 04/18/24 22:00 Pulse Rate 76 04/19/24 06:37 Respiratory Rate 20 04/19/24 06:37 Blood Pressure 111/79 04/19/24 06:37 O2 Saturation 99 04/19/24 06:37 Meds/Allgy Home Medications Ambulatory Orders Medication Instructions Recorded Confirmed bupropion HCl 150 mg tablet,12 hr 150 mg PO QDAY #90 tabs 03/31/24 04/14/24 sustained-release (Wellbutrin SR) vitamins no.159-iron 1 tab PO 03/31/24 03/31/24 fumarate 28 mg-folic acid 800 mcg tablet ( Vitamin) cephalexin 500 mg capsule 500 mg PO Q6H 7 days #28 caps 04/04/24 04/14/24 pyridoxine (vitamin B6) 100 mg 100 mg PO QID 04/14/24 04/14/24 tablet Allergies Allergies Allergy/AdvReac Type Severity Reaction Status Date / Time amoxicillin Allergy Intermediate Hives Verified 04/19/24 09:29 coconut Allergy Intermediate Hives Verified 04/19/24 09:29 metoclopramide (From Reglan) Allergy Unknown Verified 04/19/24 09:29 tamsulosin (From Flomax) Allergy Unknown Verified 04/19/24 09:29 prochlorperazine (From AdvReac Anxiety Verified 04/19/24 09:29 Compazine) [facility] Medical History Medical History (Updated 04/19/24 @ 11:49 by MORAIMA Cleary) Convulsive syncope No pertinent past medical history Surgical History Surgical History (Updated 04/15/24 @ 12:08 by Shayna Jeff RN) H/O lithotripsy Family History Family History (Updated 03/11/24 @ 13:52 by Cathie Eastman RN) Mother Asthma COPD (chronic obstructive pulmonary disease) Father COPD (chronic obstructive pulmonary disease) Brother Diabetes Social History Social History Smoking Status: Never smoker Do you vape?: Yes Patient requests smoking cessation consult: Yes Initiate information on smoking cessation: Yes Living arrangement: Other Relationship: Do you feel safe in your home environment?: Yes Suffered physical, verbal, emotional, or financial abuse?: No History of Abuse: No Substance Use: cannabis (any form) Are you sexually active?: Yes Occupation: [employer] Patient has POLST: No Review of Systems as per HPI Physical Abdominal Exam Vital Signs: Temp Pulse Resp BP Pulse Ox 36.5 C 76 20 111/79 99 04/18/24 22:00 04/19/24 06:37 04/19/24 06:37 04/19/24 06:37 04/19/24 06:37 Plan for Labor Plan For Labor I expect patient to be DC'd or transferred within 96 hours.: Yes Conclusion/Plan Problem List (1) Hyperemesis gravidarum with dehydration: Plan: 28yo G1P) @ 14+4 weeks gestation with intractable nausea and vomiting 1. maintain adequate hydration, encourage small sips/chips for oral hydration 2. correct electrolyte imbalance 3. decrease nausea and vomiting to manageable level allowing for discharge to home. 4. PO antiemetics. 5. CBC later today. (2) Hyperemesis gravidarum with electrolyte imbalance: Plan: See #1 (3) History of suicidal ideation: Plan: 1.Minimal inpatient psychiatric stay last week, without medication changes 2. Denies SI at this time. 3. Maintain current antidepressant 150mg buproprion daily 4. Connect with [facility] resources. (4) UTI in , antepartum: Plan: 1. Recurrent UTIs prior to 2. Dx last evening. IM Rocephin x1 administered in ED 3. Continue PO as tolerated. Will transition antibiotic if needed. Lab Results 04/19/24 11:59 04/18/24 22:30 Physical Exam Physical Exam General Appearance: mild distress Neck: full range of motion Respiratory: Other (no increased work of breathing) Cardiovascular/Chest: no edema
[2024-04-19] MEDS: SODIUM CHLORIDE 0.9% 1,000 ML IV SCH (08:33)
[2024-04-19] MEDS ORDERED: buPROPion SR 150 MG TABLET PO SCH (09:00)
[2024-04-19] MEDS: PYRIDOXINE 100 MG TABLET PO SCH (09:05)
[2024-04-19] MEDS: buPROPion SR 150 MG TABLET PO SCH (09:05)
[2024-04-19] MEDS: cephALEXin 250 MG CAPSULE PO SCH (09:05)
[2024-04-19] MEDS: DOXYLAMINE 25 MG TABLET PO SCH (09:06)
[2024-04-19] MEDS ORDERED: DOXYLAMINE 25 MG TABLET PO SCH (12:00)
[2024-04-19 12:03] VITALS: O2SAT 98
[2024-04-19] MEDS: ACETAMINOPHEN 325 MG TABLET PO PRN (12:07)
[2024-04-19 12:14] LABS: BASOPHILS # (AUTO) 0.1 10^3/uL (0.0-0.1); BASOPHILS % (AUTO) 0.7 %; EOSINOPHILS # (AUTO) 0.1 10^3/uL (0.0-0.7); EOSINOPHILS % (AUTO) 1.3 %; HCT - HEMATOCRIT 33.4 % (37.0-47.0); HGB - HEMOGLOBIN 11.2 g/dL (12.0-16.0); LYMPHOCYTES # (AUTO) 2.4 10^3/uL (1.5-3.5); LYMPHOCYTES % (AUTO) 27.9 %; MEAN CORPUSCULAR HEMOGLOBIN 33.2 pg (27.0-31.0); MEAN CORPUSCULAR HGB CONC 33.5 g/dL (32.0-36.0); MEAN CORPUSCULAR VOLUME 99.1 fL (81.0-99.0); MEAN PLATELET VOLUME 9.6 fL (7.9-10.8); MONOCYTES # (AUTO) 0.6 10^3/uL (0.0-1.0); NEUTROPHILS # (AUTO) 5.3 10^3/uL (1.5-6.6); NEUTROPHILS % (AUTO) 62.7 %; PLT - PLATELET COUNT 283 10^3/uL (130-450); RED BLOOD COUNT 3.37 10^6/uL (4.20-5.40); RED CELL DISTRIBUTION WIDTH 13.3 % (12.0-15.0); WHITE BLOOD COUNT 8.5 x10^3/uL (4.8-10.8)
[2024-04-19] MEDS: ONDANSETRON ODT 4 MG TABLET TL PRN (13:30)
--- NOTE | 2024-04-19 14:09 | PHARMACY PROGRESS NOTE ---
Best Possible Medication History Admit Date and Time: 04/19/248020531 Home Medications Medication Instructions Recorded Confirmed Type bupropion HCl 150 mg tablet,12 hr 150 mg PO QDAY #90 tabs 03/31/24 04/19/24 Rx sustained-release (Wellbutrin SR) vitamins no.159-iron 1 tab PO DAILYWM 03/31/24 04/19/24 History fumarate 28 mg-folic acid 800 mcg tablet ( Vitamin) cephalexin 500 mg capsule 500 mg PO Q6H 7 days #28 caps 04/04/24 04/19/24 Rx pyridoxine (vitamin B6) 100 mg 100 mg PO QID 04/14/24 04/19/24 History tablet doxylamine succinate 25 mg tablet 12.5 mg PO QID 04/19/24 04/19/24 History loratadine 10 mg tablet 10 mg PO DAILY 04/19/24 04/19/24 History Processed by: Pharmacy Medications reviewed in ED?: No Medication History completed: Yes Patient Interview: Completed Secondary Source(s): Other family member [facility] Statement: As the person ultimately responsible for medication therapy, providers are able to order a medication from an existing home medication list in [facility] via the "Reconcile Routine" prior to Confirmation of that medication by applications support engineer. Such practice is discouraged except when the physician, in their clinical judgment, deems that a medical need exists for a medication without regard to previous use.
--- NOTE | 2024-04-19 14:56 | PROVIDER PROGRESS NOTE ---
Subjective Subjective Subjective: Called to patient room Patient states, "I can't do this anymore" and "I don't want to do this any more." and "I can't keep feeling like this" Repeatedly stated she "can't go to an inpatient psych facility" Crying. Very upset. Unable to articulate in complete sentences. States she may want to terminate . This is a statement she has previously made in a clinic encounter. Feels she's crawling out of her own skin, feels trapped, feels she has worked herself up so much she can't breathe normally. Previously on multiple psych medications including effexor, lamictal and others she can't recall. Had stopped several months pre . Prescribed by her primary care provider. Worried more medications will make her suicidal. Agrees that she needs a change to her medications but also that even the Wellbutrin that was prescribed for her hasn't had time to be therapeutic. Declines social work at this time. Doesn't feel there are any resources they have that would benefit her. May consider later. Current Medications Current Medications Current Medications: Current Medications Generic Name Dose Route Start Last Admin Trade Name Freq PRN Reason Stop Dose Admin Acetaminophen 650 mg 04/19/24 09:38 04/19/24 12:07 Acetaminophen 325 Mg Tablet PO 650 mg Q4HR PRN Administration Pain or Fever > 38C (100.4F) Bupropion HCl 150 mg 04/19/24 09:00 04/19/24 09:05 Bupropion Sr 150 Mg Tablet PO 150 mg DAILY DADA Administration Cephalexin 500 mg 04/19/24 09:00 04/19/24 09:05 Cephalexin 250 Mg Capsule PO 500 mg QID DADA Administration Doxylamine Succinate 12.5 mg 04/19/24 09:00 04/19/24 09:06 Doxylamine 25 Mg Tablet PO 12.5 mg QID DADA Administration Sodium Chloride 1,000 mls @ 125 mls/hr 04/19/24 09:00 04/19/24 08:33 Normal Saline 0.9% IV 125 mls/hr .Q8H DADA Administration Ondansetron HCl 4 mg 04/19/24 08:24 04/19/24 13:30 Ondansetron Odt 4 Mg Tablet TL 4 mg Q4HR PRN Administration Nausea / Vomiting Pyridoxine HCl 100 mg 04/19/24 09:00 04/19/24 09:05 Pyridoxine 100 Mg Tablet PO 100 mg QID DADA Administration Objective Vital Signs/Intake & Output Vital Signs: Vital Signs x48h Temp Pulse Pulse Resp BP BP Pulse Ox 04/19/24 12:02 37.1 C 70 14 95/57 L 98 04/19/24 08:36 36.9 C 67 15 91/55 L 99 04/19/24 08:23 64 16 103/63 94 Intake & Output: Intake & Output 04/16/24 04/17/24 04/18/24 04/19/24 23:59 23:59 23:59 23:59 Intake Total 1000 / 1000 100 / 100 Balance 1000 / 1000 100 / 100 Weight (kg) 152 lb 12.485 oz Lab Results 04/19/24 11:59 04/18/24 22:30 Other Labs: Lab Results x24hrs 04/19/24 04/18/24 Range/Units 11:59 22:30 WBC 8.5 (4.8-10.8) x10^3/uL RBC 3.37 L (4.20-5.40) 10^6/uL Hgb 11.2 L (12.0-16.0) g/dL Hct 33.4 L (37.0-47.0) % MCV 99.1 H (81.0-99.0) fL MCH 33.2 H (27.0-31.0) pg MCHC 33.5 (32.0-36.0) g/dL RDW 13.3 (12.0-15.0) % Plt Count 283 (130-450) 10^3/uL MPV 9.6 (7.9-10.8) fL Neut # (Auto) 5.3 (1.5-6.6) 10^3/uL Lymph # (Auto) 2.4 (1.5-3.5) 10^3/uL [place] # (Auto) 0.6 (0.0-1.0) 10^3/uL Eos # (Auto) 0.1 (0.0-0.7) 10^3/uL Baso # (Auto) 0.1 (0.0-0.1) 10^3/uL Absolute Nucleated RBC 0.00 x10^3/uL Nucleated RBC % 0.0 /100WBC Sodium 137 (135-145) mmol/L Potassium 3.2 L (3.5-4.5) mmol/L Chloride 105 (101-111) mmol/L Carbon Dioxide 22 (21-32) mmol/L Anion Gap 10.0 (6-13) BUN 5 L (6-20) mg/dL Creatinine 0.5 L (0.6-1.3) mg/dL Estimated GFR (MDRD) 145 (>89) Glucose 78 (74-104) mg/dL Calcium 9.1 (8.5-10.3) mg/dL Total Bilirubin 0.4 (0.2-1.0) mg/dL AST 12 (10-42) IU/L ALT 9 L (10-60) IU/L Alkaline Phosphatase 53 (42-121) IU/L Total Protein 6.7 (6.4-8.9) g/dL Albumin 3.9 (3.2-5.5) g/dL Globulin 2.8 (2.1-4.2) g/dL Albumin/Globulin Ratio 1.4 (1.0-2.2) Lipase 30 (11-82) U/L Urine Color YELLOW Urine Clarity SL (CLEAR) Urine pH 6.5 (5.0-7.5) PH Ur Specific [place] 1.025 (1.002-1.030) Urine Protein TRACE (NEGATIVE) mg/dL Urine Glucose (UA) NEGATIVE (NEGATIVE) mg/dL Urine Ketones >=80 H (NEGATIVE) mg/dL Urine Occult Blood MODERATE H (NEGATIVE) Urine Nitrite POSITIVE H (NEGATIVE) Urine Bilirubin NEGATIVE (NEGATIVE) Urine Urobilinogen 0.2 (NORMAL) (NORMAL) E.U./dL Ur Leukocyte Esterase TRACE H (NEGATIVE) Urine RBC 6-10 H (0-5) /HPF Urine WBC 11-25 H (0-5) /HPF Urine WBC Clumps PRESENT Ur Squamous Epith Cells FEW Squamous (<= Few) Urine Bacteria Many H (None Seen) /HPF Urine Mucus Few Strands Ur Microscopic Review INDICATED Urine Culture Comments INDICATED Assessment/Plan Problem List (1) Hyperemesis gravidarum with dehydration: Impression: Emesis improved. Nausea continues. Worse with increasing anxiety and panic. Willing to try promethazine IV for better nausea control. (2) Bipolar 2 disorder: Impression: Plan: a. Proceed with telepsych consultation after obtaining urine sample for drug screening as per requirements of telehealth. b. Ensure patient is comfortable and informed about the process. - Patient is open to exploring mental health resources. - Plan: a. Offer outpatient follow-up on Thursday at the clinic for further mental health assessment. b. Ensure patient feels safe and supported in this decision. c. Social Work, initially declined, but has now visited. Positive experience for Kiara. She has already provided some resources. d. Will add sertraline 50mg daily, prn hydroxyazine for moments of panic (3) History of suicidal ideation: Impression: Denies active thoughts of SI or HI. States her Mother is her safe person and she is worried she is making her mother scared.
[2024-04-19] MEDS ORDERED: SERTRALINE 50 MG TABLET PO SCH (15:00)
[2024-04-19] MEDS: hydrOXYzine PAMOATE 25 MG CAPSULE PO PRN (15:24)
[2024-04-19] MEDS: PROMETHAZINE INJ 25 MG in SODIUM CHLORIDE 0.9% 50 ML IV PRN (16:53)
[2024-04-19 17:04] VITALS: BP 107/57; TEMP 99
[2024-04-19 17:24] LABS: AMPHETAMINE SCREEN,URINE NEGATIVE (NEGATIVE); BARBITURATE SCREEN,UR NEGATIVE (NEGATIVE); BENZODIAZEPINES SCREEN, URINE NEGATIVE (NEGATIVE); BUPRENORPHINE SCREEN, URINE NEGATIVE (NEGATIVE); COCAINE SCREEN URINE NEGATIVE (NEGATIVE); METHADONE SCREEN, URINE NEGATIVE (NEGATIVE); METHAMPHETAMINES SCREEN, URINE NEGATIVE (NEGATIVE); OPIATE SCREEN, URINE NEGATIVE (NEGATIVE); OXYCODONE SCREEN, URINE NEGATIVE (NEGATIVE); THC CANNABINOID SCREEN, URINE POSITIVE (NEGATIVE); TRICYCLIC ANTIDEPRESSANT,URINE NEGATIVE (NEGATIVE)
--- NOTE | 2024-04-19 18:36 | TELEPSYCH PHYS NOTE ---
[facility] Telepsych Consult Consult Date: 04/19/24 Name of Referring Provider:: OB Reason for Consult: "acute psych concerns" Suicide Risk Sreening (ASQ Tool) In the past few weeks, have you wished you were ?: Yes In the past few weeks, have you felt that you or your family would be better off if you were ?: Yes In the past week, have you been having thoughts about killing yourself?: Yes Have you ever tried to kill yourself?: Yes Assessment Language: Hungarian Range Mounter Required: No Cultural, Yazdanism or Spiritual Preferences: none reported Notes: NA Chief Complaint: "I am really sad. I had a panic attack." History of Present Illness: 28 yo female presenting to ED for nausea, vomiting, anxiety in the context of (14 weeks). Patient has a hx of mood and anxiety disorder. Admitted psychiatrically on 04/14 after presenting to ED with suicidal ideation and a plan. At that time, patient's had just left her and drained their bank account. Patient reportedly was discharged and planned with stay with her mother. Returned to ED 04/18 for nausea, vomiting and was ultimately admitted to OB for observation and fluids. Patient apparently had an episode where she became very hysterical and indicated that she couldn't do this anymore. Had made comments about terminating the (reportedly with the assistance of medical front desk specialist). It was reported that she continued to deny SI and HI. Notes indicate that the patient was provided resources for OP MH follow up on Thursday. Patient was also started on Zoloft 50 mg po daily and Hydroxyzine PRN. Interviewed patient with mother present. Patient indicates that she was never actually admitted to psychiatric IP. She reports that during intake at the receiving facility that a harvest worker informed her she would be safer to go home with her mother. Indicates that she was never even admitted to the unit. Notes that she continues to struggle with being extremely sad. Notes that it is all of the "external stuff" referencing her relationship with her . Indicates that she became overwhelmed today and experienced a panic attack. Indicates that when she stated that she could not do this any more she was referring to her relationship. She indicates that she does experience intermittent passive suicidal ideation but has not had any active plans since 04/14. Has no intention of harming herself. Notes that she may chose to terminate or give up child but has no desire to harm the fetus. Patient is feeling better about the plan that was devised by OB and SW. Collateral from mother. Mother indicates that she feels comfortable with patient discharging. Suicide Ideation - Homicide Ideation - Self Harm: Denies suicidal ideation. Denies homicidal ideation. Psychiatric History - Treatment History: Patient has a hx of mood and anxiety disorders. Hx of suicide attempts. Hx of psychiatric hospitalization. Hx of therapy; no current providers Community Resources Accessed: NA Family Psych History/ History of suicide: Positive family hx of psychiatric disorder. Denies suicide completions Nutritional Status: Decrease in food intake and/or appetite (hyperemesis secondary to ) Medication & Allergies Ambulatory Orders Medication Instructions Recorded Confirmed bupropion HCl 150 mg tablet,12 hr 150 mg PO QDAY #90 tabs 03/31/24 04/19/24 sustained-release (Wellbutrin SR) vitamins no.159-iron 1 tab PO DAILYWM 03/31/24 04/19/24 fumarate 28 mg-folic acid 800 mcg tablet ( Vitamin) cephalexin 500 mg capsule 500 mg PO Q6H 7 days #28 caps 04/04/24 04/19/24 pyridoxine (vitamin B6) 100 mg 100 mg PO QID 04/14/24 04/19/24 tablet doxylamine succinate 25 mg tablet 12.5 mg PO QID 04/19/24 04/19/24 loratadine 10 mg tablet 10 mg PO DAILY 04/19/24 04/19/24 Allergies Allergy/AdvReac Type Severity Reaction Status Date / Time amoxicillin Allergy Intermediate Hives Verified 04/19/24 09:29 coconut Allergy Intermediate Hives Verified 04/19/24 09:29 metoclopramide (From Reglan) Allergy Unknown Verified 04/19/24 09:29 tamsulosin (From Flomax) Allergy Unknown Verified 04/19/24 09:29 prochlorperazine (From AdvReac Anxiety Verified 04/19/24 09:29 Compazine) Drug & Alcohol History Use: Uses substance without health or social issues: Cannabis Trauma Does the patient have a history of trauma, abuse, neglect or explotation?: No History of trauma, abuse, neglect, or exploitation (Notes): traumatic experience of having leave her Personal Information Does the patient have a history or present tendencies for violence?: None History or present tendencies for violence (Notes): Denies Services History: Denies Does patient have any Legal Charges or Investigations?: No Legal Charges or Investigations (Notes): Denies Environment & Living Situation - Social, Peer-Group (Notes): staying with parents Marital Status - Family Circumstances: - reportedly left within the past 2 weeks Stressors - Financial Concerns: financial issues - drained bank account, left her unexpectedly, difficulties with (nausea, vomiting) Education: HS graduate Occupation: employed Collateral - Interdisciplinary Input: Review of documentation Medical History Psychiatric: reports Bipolar disorder Neurological: reports None Eyes, Ears, Nose, Throat: reports None Cardiovascular: reports None Respiratory: reports None Gastrointestinal: reports None Urinary: reports Kidney stones ARCHITECT MANAGER: reports None Musculoskeletal: reports None Skin: reports None Childhood History: did not discuss Mental Status Exam Appearance and Attire: Appears stated age. Dressed appropriately Attitude and Behavior: Calm. Cooperative Speech: Fluent Affect and Mood: Mood is depressed. Affect is flat. Association and Thought Process: Thoughts are coherent. Associations intact Thought Content: Denies SI, HI Perception: Denies hallucinatory activity Sensorium, memory and orientation: Alert and oriented Intellectual - Cognitive functioning: Average Insight and Judgement: Insight is fair. Judgment is fair Emotional and Behavioral Functioning: impaired but improved from 04/14 Ability to Self-Care: Able to complete ADLs Personal Goals Short-term Goals: patient does not desire psychiatric IP care Long-term Goals: patient reports that she doesn't know what she sees for her future but that "I want to be around for it" Risk/Protective Factors Risk Factors: Trigger events leading to humiliation, shame and/or despair and Inadequate social supports Protective Factors / Internal: Identifies reasons for living Protective Factors / External: Supportive social network of family or friends and Engaged in work or school Plan Impression/Risk Assessment: 28 yo female consulted for "acute psych concerns." Patient has a hx of mood and anxiety disorders; currently 14 weeks gestation with hyperemesis. Patient scores HIGH risk on [place] as she was hospitalized 04/14 for suicidal ideation with a plan in the context of her leaving her and draining the bank account. Patient was ultimately discharged to stay with her mother; she was denying SI. Presented to ED for hyperemesis and was admitted to OB. No concerns for suicidal ideation. Patient became overwhelmed and consult was placed. At time of evaluation, patient is calm and cooperative. Plan of care has been established by SW and OB. Patient indicates that she remains very upset by the situation with her but does not present as an imminent safety concern. Patient has no desire to harm the fetus (any termination will be a medical procedure). Mother reports that she has no concerns for patient's safety returning home. Treatment - Therapy Recommendations: OB/SW have provided OP referrals Pharmacological Recommendations: OB has prescribed Zoloft 50 mg po daily and Hydroxyzine PRN Problem List (1) Hyperemesis gravidarum with dehydration: (2) Bipolar 2 disorder: (3) History of suicidal ideation: Time Spent & Provider Location Telepsych consultation conducted via videoconferencing: Yes List names and roles of persons who participated in consult: Lexi WILSON-CHAVA, patient Telepsych Provider Location: [facility] Time Spent (Minutes): 35 PFSH Medical History Medical History (Updated 04/19/24 @ 11:49 by MORAIMA Cleary) Convulsive syncope No pertinent past medical history Surgical History Surgical History (Updated 04/15/24 @ 12:08 by Shayna Jeff RN) H/O lithotripsy Family History Family History (Updated 03/11/24 @ 13:52 by Cathie Eastman RN) Mother Asthma COPD (chronic obstructive pulmonary disease) Father COPD (chronic obstructive pulmonary disease) Brother Diabetes Social History Social History Smoking Status: Never smoker Do you vape?: Yes Patient requests smoking cessation consult: Yes Initiate information on smoking cessation: Yes Living arrangement: Other Relationship: Do you feel safe in your home environment?: Yes Suffered physical, verbal, emotional, or financial abuse?: No History of Abuse: No Substance Use: cannabis (any form) Are you sexually active?: Yes 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
--- NOTE | 2024-04-19 20:14 | Discharge Summary ---
Discharge Summary Admit Date: 04/19/24 Discharge Date: 04/19/24 DIAGNOSES Admission Diagnoses: 28yo G1P) @ 14+4 weeks gestation with intractable nausea and vomiting 1. Hyperemesis gravidarum with dehydration: 2. Hyperemesis gravidarum with electrolyte imbalance 3. History of suicidal ideation: 4. Recurrent UTIs prior to Discharge Diagnoses with Status of Each Condition: 28yo @ 14+4 weeks gestation 1. Nausea and vomiting significantly improved with antiemetic and IV hydration/electrolyte replacement 2. History of SI. No current thoughts of suicide or self harm. 3. Hx of significant mood disturbance and the necessity of multiple behavioral health medications to for stability 4. Acute situational mood labially and moments of panic re: to her 's abrupt absence and mixed feelings regarding continuation of . Feels comfortable with medication immediately available to her (previously prescriptions of buproprion and sertraline). 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 She will be going home with her Mom who is a great support to her. Has initiated, and is awaiting a call back from an outpatient behavioral health counselling provider. HPI History of Present Illness: Feels nausea and vomiting have significantly improved and is ready to be discharged to home. States feeling significantly better than when coming to the floor this morning. I have called the patient and discussed her experience with telehealth. She states that the telehealth provider agreed with the previously established outpatient plan of care to seek outpatient mental health privileges and agreed with previously established medication management plan. Denies any current thoughts of suicide or self harm. Does endorse fleeting thoughts of SI at time of panic. Does not have a plan. And states, "I'm too chicken to actually do anything" in the context of harming herself. She has crisis resources. Was seen by social work, although I do not have visibility of the social work consultation at this time. Desires to contact the outpatient treatment facility she was introduced to at the time of the social work consult. With her permission, I have placed an additional consult for her with Anuja at [facility] support services. We discussed several hours ago that she has exceeded the level of midwifery care and will be following up with Dr. Belle in the clinic later this week. I do not have a report in hand at the time of discharge that includes the notes from the telephsych provider. but I do have a note in workload that the consult was completed and that the provider agreed with OB/SW plan of care. Since this aligns with the patient's statement and she desires discharge, I have placed the discharge order with specific follow-up instructions. Follow-up appointment made with Dr. Belle 04/22/24 @ 1300. On 04/19/24 @ 19:31 Lexi Lema Wrote To Ann Dejesus (12) Consult completed. Agree with OB/SW plan of care. Lexi Lema removed from item. On 04/19/24 @ 14:51 Lexi Armijo Wrote To Ann Dejesus (13) Consult Request ALLERGIES Allergies Allergy/AdvReac Type Severity Reaction Status Date / Time amoxicillin Allergy Intermediate Hives Verified 04/19/24 09:29 coconut Allergy Intermediate Hives Verified 04/19/24 09:29 metoclopramide (From Reglan) Allergy Unknown Verified 04/19/24 09:29 tamsulosin (From Flomax) Allergy Unknown Verified 04/19/24 09:29 prochlorperazine (From AdvReac Anxiety Verified 04/19/24 09:29 Compazine) MEDICATIONS Ambulatory Orders Medication Instructions Recorded Confirmed bupropion HCl 150 mg tablet,12 hr 150 mg PO QDAY #90 tabs 03/31/24 04/19/24 sustained-release (Wellbutrin SR) vitamins no.159-iron 1 tab PO DAILYWM 03/31/24 04/19/24 fumarate 28 mg-folic acid 800 mcg tablet ( Vitamin) cephalexin 500 mg capsule 500 mg PO Q6H 7 days #28 caps 04/04/24 04/19/24 pyridoxine (vitamin B6) 100 mg 100 mg PO QID 04/14/24 04/19/24 tablet doxylamine succinate 25 mg tablet 12.5 mg PO QID 04/19/24 04/19/24 loratadine 10 mg tablet 10 mg PO DAILY 04/19/24 04/19/24 PHYSICAL EXAM AT DISCHARGE General Appearance: positive Alert and Anxious Cardiovascular: positive Other (No edema) Abdomen: positive No distention Skin: positive Color nml and Warm Neurologic/Psychiatric: positive Oriented x3, Sensation nml and Depressed mood/affect LABS 04/19/24 11:59 04/18/24 22:30 TIME SPENT Time Spent in Discharge (Minutes): 45 Discharge Plan Discharge Patient Disposition: 01 Home, Self Care Condition: Stable Medically Cleared Date:: 04/19/24 Prescriptions: Continued cephalexin 500 mg capsule 500 mg PO Q6H 7 Days Qty: 28 0RF pyridoxine (vitamin B6) 100 mg tablet 100 mg PO QID loratadine 10 mg tablet 10 mg PO DAILY doxylamine succinate 25 mg tablet 12.5 mg PO QID Vitamin 28 mg iron- 800 mcg tablet 1 tab PO DAILYWM bupropion HCl [Wellbutrin SR] 150 mg tablet sustained-release 12 hr 150 mg PO QDAY Qty: 90 3RF Diet: Regular Print Language: Iranian Patient Instructions: Depression Help Tips, Suicide Warning Signs Others, Adjustment Disorder, SSRIs Stand Alone Forms: PCP List Follow-up Care: TESSA FRAZIER DO [Primary Care Provider] -
== END 2024-04-19 20:30 | disposition home or self-care (01) ==
LOC: FBP 21:54 → ED 21:54 → FBP 04-19 08:26
PROVIDERS: ADMIT Nurse Practitioner; ATTEND Nurse Practitioner
DX: O21.1 Hyperemesis gravidarum with metabolic disturbance; F31.81 Bipolar II disorder; O99.891 Other specified diseases and conditions complicating pregnancy; F41.9 Anxiety disorder, unspecified; O99.342 Other mental disorders complicating pregnancy, second trimester; Z3A.14 14 weeks gestation of pregnancy; F39 Unspecified mood [affective] disorder; N30.01 Acute cystitis with hematuria

== ENCOUNTER 2024-05-08 19:41 | Observation (INO) ==
[2024-05-08 20:12] LABS: BASOPHILS # (AUTO) 0.1 10^3/uL (0.0-0.1); BASOPHILS % (AUTO) 0.4 %; BILIRUBIN,URINE NEGATIVE (NEGATIVE); EOSINOPHILS # (AUTO) 0.1 10^3/uL (0.0-0.7); EOSINOPHILS % (AUTO) 1.1 %; GLUCOSE, URINE (UA) NEGATIVE (NEGATIVE); HCT - HEMATOCRIT 36.7 % (37.0-47.0); KETONES,URINE (UA) 40 mg/dL (NEGATIVE); LEUKOCYTE ESTERASE, URINE TRACE (NEGATIVE); LYMPHOCYTES # (AUTO) 3.6 10^3/uL (1.5-3.5); LYMPHOCYTES % (AUTO) 30.4 %; MEAN CORPUSCULAR HEMOGLOBIN 32.3 pg (27.0-31.0); MEAN CORPUSCULAR HGB CONC 32.7 g/dL (32.0-36.0); MEAN CORPUSCULAR VOLUME 98.7 fL (81.0-99.0); MEAN PLATELET VOLUME 9.4 fL (7.9-10.8); MONOCYTES # (AUTO) 0.6 10^3/uL (0.0-1.0); NEUTROPHILS # (AUTO) 7.3 10^3/uL (1.5-6.6); NEUTROPHILS % (AUTO) 62.6 %; NITRITE,URINE POSITIVE (NEGATIVE); OCCULT BLOOD,URINE LARGE (NEGATIVE); PLT - PLATELET COUNT 308 10^3/uL (130-450); PROTEIN,URINE 100 mg/dL (NEGATIVE); RED BLOOD COUNT 3.72 10^6/uL (4.20-5.40); RED CELL DISTRIBUTION WIDTH 13.2 % (12.0-15.0); UROBILINOGEN,URINE 0.2 (NORMAL) E.U./dL (NORMAL); WHITE BLOOD COUNT 11.7 x10^3/uL (4.8-10.8)
[2024-05-08 20:15] LABS: CLARITY,URINE CLOUDY (CLEAR)
[2024-05-08 20:27] LABS: BACTERIA,URINE Moderate /HPF (None Seen); EPITHELIAL CELLS,UR FEW Transitional /HPF (<= Few); MUCUS,URINE Few Strands; SQUAMOUS EPITHELIAL CELL,UR MOD Squamous (<= Few)
[2024-05-08 20:29] LABS: ALBUMIN 3.7 g/dL (3.2-5.5); ALBUMIN/GLOBULIN RATIO 1.4 (1.0-2.2); BILIRUBIN,TOTAL 0.4 mg/dL (0.2-1.0); CALCIUM 8.4 mg/dL (8.5-10.3); CREATININE 0.4 mg/dL (0.6-1.3); POTASSIUM 3.2 mmol/L (3.5-4.5); TOTAL PROTEIN 6.4 g/dL (6.4-8.9)
[2024-05-08] MEDS: ONDANSETRON 4 MG/2 ML VIAL IVP STA (20:54)
[2024-05-08] MEDS: cefTRIAXone 1 GM VIAL IVP STA (20:55)
[2024-05-08] MEDS: POTASSIUM BICARB 25 MEQ TABLET PO STA (20:56)
[2024-05-08] MEDS: SODIUM CHLORIDE 0.9% 1,000 ML IV STA (21:31)
--- NOTE | 2024-05-08 21:34 | ED Physician Documentation ---
History of Present Illness Stated complaint Stated Complaint: BACK PX/VOMIT Chief complaint Chief Complaint: Back Pain History obtained from History obtained from: Patient History of Present Illness Timing: Prior to arrival Additonal information Additional information: Patient is a 28-year-old female presenting to the emergency department with presenting with lower back pain radiating across her lower back bilaterally. Patient also reports about 3 episodes of nausea and vomiting today. She notes she is about 17 weeks consistent with her last normal menstrual period. She has had recurrent UTIs and kidney stones with this . She was last admitted here back in March for a kidney stone. She notes at the time she was given medications for it and this seemed to help her symptoms. She was discharged home after she passed her kidney stone. Today patient reports symptoms feel similar to her previous kidney stones with her sudden onset back pain and nausea and vomiting. She feels it usually is more on 1 side but today is more in the middle of her abdomen. She denies any fevers or chills today. She notes pain with urination and recently recovered from a UTI with a course of antibiotic she finished about 5 days ago. She notes she was on Keflex at that time for the recurrent UTI. Previous cultures on 1222 did grow E. coli that was pansensitive on review. Meds/Allgy Home Medications Ambulatory Orders Medication Instructions Recorded Confirmed bupropion HCl 150 mg tablet,12 hr 150 mg PO QDAY #90 tabs 03/31/24 04/19/24 sustained-release (Wellbutrin SR) vitamins no.159-iron 1 tab PO DAILYWM 03/31/24 04/19/24 fumarate 28 mg-folic acid 800 mcg tablet ( Vitamin) cephalexin 500 mg capsule 500 mg PO Q6H 7 days #28 caps 04/04/24 04/19/24 pyridoxine (vitamin B6) 100 mg 100 mg PO QID 04/14/24 04/19/24 tablet doxylamine succinate 25 mg tablet 12.5 mg PO QID 04/19/24 04/19/24 loratadine 10 mg tablet 10 mg PO DAILY 04/19/24 04/19/24 buspirone 5 mg tablet 5 mg PO BID PRN anxiety #18 tabs 04/20/24 hydroxyzine pamoate 25 mg capsule 25 mg PO BID PRN anxiety #20 caps 04/20/24 (Vistaril) sertraline 100 mg tablet 100 mg PO QDAY #30 tabs 04/20/24 Allergies Allergies Allergy/AdvReac Type Severity Reaction Status Date / Time amoxicillin Allergy Intermediate Hives Verified 05/08/24 19:49 coconut Allergy Intermediate Hives Verified 05/08/24 19:49 metoclopramide (From Reglan) Allergy Unknown Verified 05/08/24 19:49 tamsulosin (From Flomax) Allergy Unknown Verified 05/08/24 19:49 prochlorperazine (From AdvReac Anxiety Verified 05/08/24 19:49 Compazine) [facility] Medical History Medical History (Updated 05/08/24 @ 21:53 by Arlene Lim MD) Convulsive syncope No pertinent past medical history Surgical History Surgical History (Updated 04/15/24 @ 12:08 by Shayna Jeff RN) H/O lithotripsy Family History Family History (Updated 03/11/24 @ 13:52 by Cathie Eastman RN) Mother Asthma COPD (chronic obstructive pulmonary disease) Father COPD (chronic obstructive pulmonary disease) Brother Diabetes Social History Social History Smoking Status: Current every day smoker (Trying to quit (vape)) Do you vape?: Yes Patient requests smoking cessation consult: Yes Initiate information on smoking cessation: Yes Living arrangement: Other Relationship: Do you feel safe in your home environment?: Yes Suffered physical, verbal, emotional, or financial abuse?: No History of Abuse: No Substance Use: cannabis (any form) Are you sexually active?: Yes Occupation: [employer] Patient has POLST: No Exam Constitutional normal general appearance HENMT normocephalic and head/scalp atraumatic Eyes PERRL, EOMs intact bilaterally and conjunctivae normal Neck/C-Spine visual inspection normal Lymph no lymphadenopathy noted Chest inspection of chest normal Respiratory breath sounds equal bilaterally, normal respiratory effort and clear to auscultation bilaterally Cardiovascular normal heart rate noted, regular rhythm noted, no gallop and no rub Gastrointestinal Reproducible bilateral lower back pain Genitourinary Bilateral CVA tenderness Back/Pelvis No spinous process tenderness on examination Extremities normal to inspection Results Vitals Vitals: Vital Signs - 24 hr 05/08/24 19:43 05/08/24 20:04 05/08/24 21:00 Temperature 36.4 C L Temperature Source Oral Pulse Rate 99 90 75 Respiratory Rate 16 18 18 Blood Pressure 82/61 L 98/62 84/54 L O2 Saturation 99 99 100 O2 Source Room air Room air Room air Pain Intensity 9 9 9 05/08/24 22:02 05/08/24 22:07 05/08/24 22:08 Temperature Temperature Source Pulse Rate 71 Respiratory Rate 18 Blood Pressure 91/52 L O2 Saturation 100 O2 Source Room air Pain Intensity 9 9 9 Oxygen O2 Source Room air Labs Labs: Laboratory Tests 05/08/24 20:06 WBC 11.7 H RBC 3.72 L Hgb 12.0 Hct 36.7 L MCV 98.7 MCH 32.3 H MCHC 32.7 RDW 13.2 Plt Count 308 MPV 9.4 Neut # (Auto) 7.3 H Lymph # (Auto) 3.6 H [place] # (Auto) 0.6 Eos # (Auto) 0.1 Baso # (Auto) 0.1 Absolute Nucleated RBC 0.00 Nucleated RBC % 0.0 Sodium 133 L Potassium 3.2 L Chloride 105 Carbon Dioxide 20 L Anion Gap 8.0 BUN 4 L Creatinine 0.4 L Estimated GFR (MDRD) 187 Glucose 88 Calcium 8.4 L Total Bilirubin 0.4 AST 20 ALT 15 Alkaline Phosphatase 66 Total Protein 6.4 Albumin 3.7 Globulin 2.7 Albumin/Globulin Ratio 1.4 Lipase 16 Urine Color YELLOW Urine Clarity CLOUDY Urine pH 6.0 Ur Specific [place] >=1.030 H Urine Protein 100 H Urine Glucose (UA) NEGATIVE Urine Ketones 40 H Urine Occult Blood LARGE H Urine Nitrite POSITIVE H Urine Bilirubin NEGATIVE Urine Urobilinogen 0.2 (NORMAL) Ur Leukocyte Esterase TRACE H Urine RBC 6-10 H Urine WBC 11-25 H Ur Epithelial Cells FEW Transitional Ur Squamous Epith Cells MOD Squamous H Urine Bacteria Moderate H Urine Mucus Few Strands Ur Microscopic Review INDICATED Urine Culture Comments NOT INDICATED PD Medical Decision Making ED course Complexity details: reviewed old records and reviewed results ED course: Patient is a 28-year-old female presenting to the emergency department G1, P0 with lower back pain nausea vomiting and.. She notes she recently recovered from a UTI and finished antibiotics about 5 days ago. During her that about 17 weeks along with that she has been battling recurrent UTIs and nausea and vomiting. She had a kidney stone back in March and was admitted here for it. Vitals on arrival are reassuring patient is afebrile nontachycardic stable blood pressure. Reproducible bilateral flank tenderness on examination. Abdomen is soft without rebound or guarding. Labs here in the emergency department show mild leukocytosis hemoglobin is stable CMP shows no significant JUSTO or elevated creatinine level. Mild hypokalemia which will be replaced here in the ED at 3.1. Urine shows positive nitrites leukocytes and greater than 25 leukocytes in the urine. Patient started on dose of ceftriaxone here in the ED. She did take Tylenol prior to coming in and given she is we will hold off on further pain medication until discussed with NET TECHNICAL ARCHITECT. Zofran given here in the ED. While in the ED patient had some soft blood pressures of SBP in the 90s. Will start IV normal saline here in the ED. Patient continues to have persistent pain I did discuss with Dr. Lim NET TECHNICAL ARCHITECT who will come evaluate patient here in the ED. Will plan to admit overnight we are unable to obtain an ultrasound tonight given it is past 9 pm. Of note ultrasound was ordered at 8:48. Patient will be admitted to NET TECHNICAL ARCHITECT Dr. Lim and will try to find placement on the floor if not patient will be admitted to [facility]. Patient's blood pressure did drop to 83 SBP here in the ED she is awake and alert and answering questions appropriately normal saline started here in the ED. Patient was tolerate drinking potassium here in the ED. Dr. Lim evaluate patient here in the ED fluids appear to be improving patient's blood pressure SBP 91/52 around 10 PM. Patient was given Tylenol hy drocodone and morphine as needed for pain this was ordered by Dr. Lim overnight medications ordered and she recommended heart tones twice daily. Patient will be boarding down here in the ED. Discharge Plan Discharge Patient Disposition: 66 [facility] DC/Xfer Condition: Stable Clinical Impression: Acute flank pain, Nausea & vomiting, Second trimester , Pyelonephritis Prescriptions: No Action sertraline 100 mg tablet 100 mg PO QDAY Qty: 30 0RF Rx Instructions: Start with 1/2 tablet (50mg) x 1 week then increase to full dose hydroxyzine pamoate [Vistaril] 25 mg capsule 25 mg PO BID PRN (Reason: anxiety ) Qty: 20 1RF buspirone 5 mg tablet 5 mg PO BID PRN (Reason: anxiety) Qty: 18 0RF cephalexin 500 mg capsule 500 mg PO Q6H 7 Days Qty: 28 0RF pyridoxine (vitamin B6) 100 mg tablet 100 mg PO QID loratadine 10 mg tablet 10 mg PO DAILY doxylamine succinate 25 mg tablet 12.5 mg PO QID Vitamin 28 mg iron- 800 mcg tablet 1 tab PO DAILYWM bupropion HCl [Wellbutrin SR] 150 mg tablet sustained-release 12 hr 150 mg PO QDAY Qty: 90 3RF Print Language: Tamazight
[2024-05-08] MEDS ORDERED: hydrOXYzine PAMOATE 25 MG CAPSULE PO PRN (21:41)
--- NOTE | 2024-05-08 21:56 | HISTORY & PHYSICAL EXAMINATION ---
Admit History Visit Reason Visit Reason: Other (ER consult: back pain, suspected nephrolithiasis, complicated UTI) : 1 Parity: 0 Premature: 0 Ectopic: 0 : 0 Care: positive [facility] Complications This : positive Treated for GBS/UTI (Hx urinary tract stones and recurrent UTIs) and Other (Hyperemesis gravidarum, bipolar disorder) Smoking Status: Current every day smoker (Trying to quit (vape)) Mother's Labs Mother's Blood Type: positive O Mother's RH: positive Positive Rubella Status: positive Immune Other Maternal History Other Maternal History: Patient is a 28 yo at 17+2 wks, who presented to the ER with bilateral mid- back pain, greater on the left. She has had similar sx in the past, associated with kidney stones. She reports a hx of recurrent stones (calcium type) and lithotripsy x 4 in the past as well as stents at times. She also has recurrent UTIs, with most recent in March. She just completed a course of Keflex 4 days ago. She reports nausea and vomiting when the pain is most intense. Denies fever, chills, abdominal cramping, leakage of fluid. + single episode of vaginal bleeding a few days ago (light and did not recur). Back pain started 2 days ago and has been worsening. She tried to manage with Tylenol (last dose at 1500 today) but it has not been effective. Medical history: - Low blood pressure - No pap smear in 5 to 7 years - History of kidney stones - Recent ER treatment for recurring issue - Yeast infection on and off for several weeks - Using Monistat for treatment - History of suicide attempts (not recent), Denies any thoughts of SI/HI. Local behavioral health resources given. - smoking, encouraged cessation. Hopeful that Current concerns: - Mental health - Depression due to job loss, hx of depression - Frequent arguments with , feels very safe at home. - Vulva irritation - Difficulty treating yeast infection Employment situation: - Currently unemployed - Considering work with [employer] or [employer] - Dealing with L&I due to job loss after disclosure Relationship: - Frequent fights with , Neftali - Feels safe despite arguments - not allowing proper treatment intervals for yeast infection Genetic Testing - Patient interested in testing to determine baby's gender - Results expected in about 10-14 days Employment Situation - Recently lost job after disclosing - Dealing with potential legal issues related to job loss - Plans to return to work through [employer] jobs ([employer], [employer]) Relationship and Mental Health - Reports frequent fights with , but feels safe - History of suicide attempts prior to , none recently Home Medications - Last Reconciled 05/08/[address] Lim acetaminophen (Tylenol) 325 mg PO Q6H PRN bupropion HCl SR (Wellbutrin SR) 150 mg PO QDAY cephalexin 500 mg PO Q6H 7 days - completed 4 days ago fluconazole 150 mg PO Q3D 2 doses ondansetron HCl 4 mg PO Q8H PNV no.[id number] acid 28 mg iron- 800 mcg ( Vitamin) tabs PO sertraline 100 mg daily Specific Issues/Plans LMP: 01/08/2024 CÉSAR by LMP: 10/14/2024 U/S: Final CÉSAR: 10/14/2024 Pre- weight: 168 BMI: Blood type: O pos Antibody screen: Neg CBC: PLT HCT HGB Rubella: Imm VZV: HBsAg: NR HepC: Neg RPR/AB-EIA: NR HIV: Neg Flu: COVID: PAP: GC/CT: Neg/Neg HSV: Genetic Testing: FAS: Placenta: Cord: CRISTEL: EFW: 50gm GCT: 3 hr GTT: TDAP: Breast Pump: 2nd antibody screen: 3rd trimester H/H PLT 3rd trimester HIV GBS: Delivery plan: contraception OB Visit Log Initial Weight: 168 lb HPI Current : Vital Signs Temperature 36.4 C L 05/08/24 19:43 Pulse Rate 75 05/08/24 21:00 Respiratory Rate 18 05/08/24 21:00 Blood Pressure 84/54 L 05/08/24 21:00 O2 Saturation 100 05/08/24 21:00 Meds/Allgy Home Medications Ambulatory Orders Medication Instructions Recorded Confirmed bupropion HCl 150 mg tablet,12 hr 150 mg PO QDAY #90 tabs 03/31/24 04/19/24 sustained-release (Wellbutrin SR) vitamins no.159-iron 1 tab PO DAILYWM 03/31/24 04/19/24 fumarate 28 mg-folic acid 800 mcg tablet ( Vitamin) cephalexin 500 mg capsule 500 mg PO Q6H 7 days #28 caps 04/04/24 04/19/24 pyridoxine (vitamin B6) 100 mg 100 mg PO QID 04/14/24 04/19/24 tablet doxylamine succinate 25 mg tablet 12.5 mg PO QID 04/19/24 04/19/24 loratadine 10 mg tablet 10 mg PO DAILY 04/19/24 04/19/24 buspirone 5 mg tablet 5 mg PO BID PRN anxiety #18 tabs 04/20/24 hydroxyzine pamoate 25 mg capsule 25 mg PO BID PRN anxiety #20 caps 04/20/24 (Vistaril) sertraline 100 mg tablet 100 mg PO QDAY #30 tabs 04/20/24 Allergies Allergies Allergy/AdvReac Type Severity Reaction Status Date / Time amoxicillin Allergy Intermediate Hives Verified 05/08/24 19:49 coconut Allergy Intermediate Hives Verified 05/08/24 19:49 metoclopramide (From Reglan) Allergy Unknown Verified 05/08/24 19:49 tamsulosin (From Flomax) Allergy Unknown Verified 05/08/24 19:49 prochlorperazine (From AdvReac Anxiety Verified 05/08/24 19:49 Compazine) [facility] Medical History Medical History (Updated 05/08/24 @ 23:48 by Arlene Lim MD) Convulsive syncope No pertinent past medical history Surgical History Surgical History (Updated 04/15/24 @ 12:08 by Shayna Jeff RN) H/O lithotripsy Family History Family History (Updated 03/11/24 @ 13:52 by Cathie Eastman RN) Mother Asthma COPD (chronic obstructive pulmonary disease) Father COPD (chronic obstructive pulmonary disease) Brother Diabetes Social History Social History Smoking Status: Current every day smoker (Trying to quit (vape)) Do you vape?: Yes Patient requests smoking cessation consult: Yes Initiate information on smoking cessation: Yes Living arrangement: Other Relationship: Do you feel safe in your home environment?: Yes Suffered physical, verbal, emotional, or financial abuse?: No History of Abuse: No Substance Use: cannabis (any form) Are you sexually active?: Yes Occupation: [employer] Patient has POLST: No Review of Systems Status of ROS: 10 or more systems reviewed and unremarkable except as noted in history and below Physical Abdominal Exam Vital Signs: Temp Pulse Resp BP Pulse Ox 36.4 C L 75 18 84/54 L 100 05/08/24 19:43 05/08/24 21:00 05/08/24 21:00 05/08/24 21:00 05/08/24 21:00 Monitoring Heart Rate Baseline: Doptones 150s Speculum Exam Speculum Exam Performed: positive No Other Notes Labor Progress Note/Additional Text: General: Well-appearing but sitting up and appears mildly distressed due to pain; taking short/shallow breaths due reportedly due to pain; denies SOB or chest discomfort Lungs: Clear bilaterally; normal respiratory effort Heart: Reg rate and rhythm Abd: Soft, nontender; uterus palbable at U-2 Back: Mod CVAT at left side Ext: Warm and well-perfused with no edema Plan for Labor Plan For Labor I expect patient to be DC'd or transferred within 96 hours.: Yes Conclusion/Plan Problem List (1) Renal and ureteric calculus: Plan: 17+2 wks with hx of renal calculi, now with pain similar to past episode of stones. UA notable for blood as well as WBC, bacteria, and nitrites. Findings may suggest concurrent complicated UTI vs infected stones. She was recently treated for E. coli UTI and has a hx of recurrent UTIs. Pt is afeb with slightly elevated WBC. BP is low, but pt also with a hx of such. No signs of sepsis at this time. -Recommend treatment for complicated UTI with IV antibiotics. Rocephin started in ER and cont Q 24 hrs. Consider IV antibiotics x 24-48 hrs followed by repeat course of Keflex. Thereafter, would consider starting suppressive antibiotics for remainder of . -Judicious IV hydration given risk of pulmonary edema/ARDS with /pyelo -Obtain renal US to eval for obstruction. This is planned for tomorrow morning due to Radiology/US hours of operation. -Consult Urology if obstruction present and/or pain not improving with hydration and antibiotics. -For pain mgmt, start with Tylenol and Oxycodone prn w/ morphine 2 mg IV prn for breakthrough pain. -Pt boarding in ER while awaiting inpatient bed. Reassess once bed available and US completed to determine if inpatient stay still indicated (for mgmt of pain/nausea and IV antibiotics). -Thank you for consulting with [facility]. We will reassess the patient in the morning after US completed. (2) UTI (urinary tract infection) in in second trimester: (3) 17 weeks gestation of : Plan: Doptones Q shift (4) Nausea & vomiting: Plan: -IV Zofran prn -IV hydration Qualifiers: Vomiting type: unspecified Qualified Code(s): R11.2 - Nausea with vomiting, unspecified (5) Acute hypokalemia: Plan: Potassium 3.2 - replacement ordered (6) Depression affecting : Plan: -Cont Wellbutrin and Zoloft Lab Results Lab results reviewed: Yes 05/08/24 20:06 05/08/24 20:06 Other Lab Results: See chart
[2024-05-08] MEDS ORDERED: SERTRALINE 50 MG TABLET PO SCH (22:00)
[2024-05-08] MEDS: ACETAMINOPHEN 500 MG TABLET PO STA (22:07)
[2024-05-08] MEDS: oxyCODONE 5 MG TABLET PO STA (22:08)
[2024-05-08] MEDS: MORPHINE 2 MG/ML CARPUJECT IVP PRN (22:37)
--- NOTE | 2024-05-08 23:25 | ED Physician Documentation ---
ED Addendum Addendum Addendum: Received signout/turnover of care of the patient from ESTEFANIA Hernandez; please see her note for complete H&P. In brief, patient is prima , 17 weeks , c/o nausea, vomiting, and pain across mid/lower back. On tonight's tests that were completed prior to turnover of care, urinalysis results are as/O UTI (although specimen is contaminated with squamous cells). Unremarkable CBC (mild leukocytosis, WBC 11.7). Mild hypokalemia on ER abdominal panel (K3.2). She was given PO potassium, IV rocephin, IV NS, IV morphine. ESTEFANIA Hernandez discussed this case with the on-call STUDENT MINISTRY PASTOR (Dr. Lim), and at that time, the plan was to admit to [facility]. Unfortunately, there are no beds available at [facility] and thus she is held overnight in the ED. During my overnight shift, the patient required repeated doses of IV morphine. A retroperitoneal ultrasound that was ordered by ESTEFANIA Hernandez, and this is completed towards the end of my shift with results pending. Care of patient is turned over to oncoming ED physician at end of my shift (Dr. Vergara) Patient is given a total of 3 L of normal saline IV during ED stay through the end of my shift; she had already received 1 liter prior to my assumption of care, but I ordered another 2 liters during my shift due to persistent hypotensive readings. Patient says she normally runs low-normal blood pressures, but she had mostly 80s-70s SBP throughout my shift. Repeat CBC during my shift is without significant change from initial draw (12.9 WBC, hgb 10.9 which is likely due to dilutional effect secondary to IV fluids). Lactate is WNL (2.1). This is patient's 19th ED visit over past 12 months (2 ED visits, others [facility]). Discharge Plan Discharge Patient Disposition: [facility] DC/Xfer Condition: Stable Clinical Impression: Acute flank pain, Nausea & vomiting, Second trimester , Pyelonephritis Prescriptions: No Action sertraline 100 mg tablet 100 mg PO QDAY Qty: 30 0RF Rx Instructions: Start with 1/2 tablet (50mg) x 1 week then increase to full dose hydroxyzine pamoate [Vistaril] 25 mg capsule 25 mg PO BID PRN (Reason: anxiety ) Qty: 20 1RF buspirone 5 mg tablet 5 mg PO BID PRN (Reason: anxiety) Qty: 18 0RF cephalexin 500 mg capsule 500 mg PO Q6H 7 Days Qty: 28 0RF pyridoxine (vitamin B6) 100 mg tablet 100 mg PO QID loratadine 10 mg tablet 10 mg PO DAILY doxylamine succinate 25 mg tablet 12.5 mg PO QID Vitamin 28 mg iron- 800 mcg tablet 1 tab PO DAILYWM bupropion HCl [Wellbutrin SR] 150 mg tablet sustained-release 12 hr 150 mg PO QDAY Qty: 90 3RF Print Language: Amharic
[2024-05-09] MEDS: SODIUM CHLORIDE 0.9% 1,000 ML IV STA ×2 (00:32→02:46)
[2024-05-09] MEDS: MORPHINE 2 MG/ML CARPUJECT IVP STA ×3 (00:35→08:24)
[2024-05-09 03:14] LABS: BASOPHILS % (AUTO) 0.5 %; EOSINOPHILS % (AUTO) 1.8 %; HCT - HEMATOCRIT 34.6 % (37.0-47.0); HGB - HEMOGLOBIN 10.9 g/dL (12.0-16.0); LYMPHOCYTES % (AUTO) 46.4 %; MEAN CORPUSCULAR HEMOGLOBIN 33.1 pg (27.0-31.0); MEAN CORPUSCULAR HGB CONC 31.5 g/dL (32.0-36.0); MEAN CORPUSCULAR VOLUME 105.2 fL (81.0-99.0); MEAN PLATELET VOLUME 9.6 fL (7.9-10.8); MONOCYTES % (AUTO) 5.7 %; NEUTROPHILS % (AUTO) 45.2 %; PLT - PLATELET COUNT 272 10^3/uL (130-450); RED BLOOD COUNT 3.29 10^6/uL (4.20-5.40); RED CELL DISTRIBUTION WIDTH 13.5 % (12.0-15.0); WHITE BLOOD COUNT 12.9 x10^3/uL (4.8-10.8)
[2024-05-09 03:16] LABS: ABNORMAL LYMPHS % (MANUAL) 0 %; BAND NEUTROPHILS % (MANUAL) 0 %
[2024-05-09 03:32] LABS: CALCIUM 7.7 mg/dL (8.5-10.3); CREATININE 0.5 mg/dL (0.6-1.3); POTASSIUM 3.6 mmol/L (3.5-4.5)
[2024-05-09 03:39] LABS: BASOPHILS # (MANUAL) 0.1 10^3/uL (0-0.1); BASOPHILS % (MANUAL) 1 %; EOSINOPHILS # (MANUAL) 0.1 10^3/uL (0-0.7); LYMPHOCYTES # (MANUAL) 5.7 10^3/uL (1.5-3.5); LYMPHOCYTES % (MANUAL) 43 %; MONOCYTES # (MANUAL) 0.4 10^3/uL (0.0-1.0); NEUTROPHILS # (MANUAL) 6.6 10^3/uL (1.5-6.6); REACTIVE LYMPHS % (MANUAL) 1 %
[2024-05-09 03:41] LABS: DIFFERENTIAL COMMENT MANUAL DIFFERENTIAL; PLATELET ESTIMATE, MANUAL NORMAL (130-450,000) (NORMAL); PLATELET MORPHOLOGY NORMAL APPEARANCE (NORMAL); RBC MORPHOLOGY (MULTIPLE) NORMAL APPEARANCE (NORMAL); WBC MORPHOLOGY (MULTIPLE) NORMAL APPEARANCE (NORMAL)
[2024-05-09] MEDS: SERTRALINE 50 MG TABLET PO SCH (08:24)
[2024-05-09] MEDS: buPROPion SR 150 MG TABLET PO SCH (08:24)
--- NOTE | 2024-05-09 09:56 | Ultrasound Report ---
PROCEDURE: US Renal (Retroperitoneal) INDICATIONS: LT FLANK PAIN, CONCERN FOR OBSTRUCTING STONE TECHNIQUE: Real-time scanning was performed of the retroperitoneal organs, with image documentation. COMPARISON: None. FINDINGS: Kidneys: Kidneys are normal in size. Right kidney measures 11.4 cm long; left kidney measures 12.1 cm long. Right renal cortical thickness is 1.2 cm; left renal cortical thickness is 1.3 cm. Nonobstr ucting 7 mm left renal calculus. Bladder: Pre-void bladder volume is 0 mL. Post-void residual is not obtained. Pre-void images demon strate no intraluminal masses or stones. On pre-void images, neither ureteral jets are noted with co sonja Doppler interrogation. (Of note, ureteral jets may not be detectable in up to 25% of cases due t o insufficient differences in specific gravity between ureteral and bladder urine). Miscellaneous: No free abdominal fluid. Single live intrauterine . IMPRESSION: Nonobstructing 7 mm left renal calculus. The above findings are concordant with preliminary report. Reviewed by: Araseli Pardo MD on 05/09/2024 9:55 AM PST Approved by: Araseli Pardo MD on 05/09/2024 9:55 AM PST Station ID: [id number]
[2024-05-09] MEDS ORDERED: MORPHINE 10 MG/ML VIAL IVP PRN (11:13)
[2024-05-09] MEDS: ONDANSETRON 4 MG/2 ML VIAL IVP PRN (11:16)
--- NOTE | 2024-05-09 12:53 | MISCELLANEOUS PROVIDER NOTE ---
Miscellaneous Provider Note - Note: I evaluated Alicja at bedside in the ED this morning and again after she arrived to L&D. Alicja reports that overall her pain is improved some coming to the ED last night, nausea and pains are helping. She reports back pain, constant, on the left side, with intermittent episodes of sharp pain. Denies F/C. She has been able to tolerate PO, but then had an episode of vomiting this morning. Renal US obtained early this morning with 7mm left, nonobstructing kidney stone. VS reviewed, hypotension noted overnight, asymptomatic. Gen: NAD Chest: non labored respirations Abd: gravid, non tender Back: no CVA tenderness A/P: 28 yo at 17w3d with: - Left kidney stone - Complicated UTI We reviewed plan of care for today. She is admitted for observation. Will plan for an additional dose of IV antibiotics this evening. Oral hydration and regular diet if can tolerate today. If pain is well controlled and able to tolerate regular diet, can discharge home this evening to complete course of PO antibiotics (followed by suppression therapy). Otherwise, will keep overnight for antiemetics, pain control. Low BP noted overnight, asymptomatic and likely her baseline. Will monitor closely. For now, plan for outpatient follow up with urology. Yuliet Gustafson MD
--- NOTE | 2024-05-09 13:53 | PHARMACY PROGRESS NOTE ---
Best Possible Medication History Admit Date and Time: 05/09/24 0930 Home Medications Medication Instructions Recorded Confirmed Type bupropion HCl 150 mg tablet,12 hr 150 mg PO QDAY #90 tabs 03/31/24 05/09/24 Rx sustained-release (Wellbutrin SR) vitamins no.159-iron 1 tab PO DAILYWM 03/31/24 05/09/24 History fumarate 28 mg-folic acid 800 mcg tablet ( Vitamin) pyridoxine (vitamin B6) 100 mg 100 mg PO QID 04/14/24 05/09/24 History tablet doxylamine succinate 25 mg tablet 12.5 mg PO QID 04/19/24 05/09/24 History buspirone 5 mg tablet 5 mg PO BID PRN anxiety #18 tabs 04/20/24 05/09/24 Rx hydroxyzine pamoate 25 mg capsule 25 mg PO BID PRN anxiety #20 caps 04/20/24 05/09/24 Rx (Vistaril) sertraline 100 mg tablet 100 mg PO QDAY #30 tabs 04/20/24 05/09/24 Rx Processed by: Pharmacy Medications reviewed in ED?: No Medication History completed: Yes Patient Interview: Completed Secondary Source(s): Insurance records [facility] Statement: As the person ultimately responsible for medication therapy, providers are able to order a medication from an existing home medication list in [facility] via the "Reconcile Routine" prior to Confirmation of that medication by support team member. Such practice is discouraged except when the physician, in their clinical judgment, deems that a medical need exists for a medication without regard to previous use.
[2024-05-09] MEDS: ONDANSETRON ODT 4 MG TABLET PO PRN (15:01)
[2024-05-09] MEDS: MORPHINE 2 MG/ML CARPUJECT IVP PRN (15:48)
[2024-05-09] MEDS: PROMETHAZINE 25 MG TABLET PR PRN (15:51)
[2024-05-09] MEDS: LACTATED RINGERS 1,000 ML IV SCH (16:42)
[2024-05-09] MEDS: cefTRIAXone 1 GM in SODIUM CHLORIDE 0.9% MINIBAG 100 ML IV ONE ×2 (17:50→18:00)
[2024-05-09] MEDS ORDERED: DOCUSATE SODIUM 100 MG CAPSULE PO ONE (19:56)
[2024-05-09] MEDS: DOCUSATE SODIUM 100 MG CAPSULE PO SCH (20:00)
--- NOTE | 2024-05-09 21:38 | MISCELLANEOUS PROVIDER NOTE ---
Miscellaneous Provider Note - Note: Alicja was evaluated again this evening. She has had three episodes of emesis this afternoon. She initially declined rectal phenergan but since accepted. RN to also given a dose of IV zofran a little early. Discussed allergy to reglan, reports it makes her feel like her skin is crawling, would take it only if absolutely necessary. Reports that left flank pain persists, 7-12/04. I recommended that she stay overnight for pain control, management of N/V. IV fluids started since not tolerating PO. Reassess tomorrow. Discussed urology consult if severe pain persists. She is in agreement with plan. Yuliet Gustafson MD
[2024-05-10] MEDS: ACETAMINOPHEN 500 MG TABLET PO PRN (08:12)
[2024-05-10] MEDS: oxyCODONE 5 MG TABLET PO PRN (08:12)
[2024-05-10] MEDS ORDERED: PROMETHAZINE 25 MG TABLET PO PRN (13:40)
[2024-05-10] MEDS: KETOROLAC 30 MG/ML VIAL IVP SCH (14:19)
[2024-05-10] MEDS: MAGNESIUM HYDROXIDE 2,400 MG/30 ML UDC PO PRN (14:22)
[2024-05-10] MEDS: PRENATAL VITAMIN TABLET PO SCH (18:17)
--- NOTE | 2024-05-10 21:24 | PROVIDER PROGRESS NOTE ---
Assessment/Plan Problem List (1) Renal and ureteric calculus: Assessment/Plan: still quite painful for her. hopefully she will feel better tomorrow. (2) UTI (urinary tract infection) in in second trimester: Assessment/Plan: not an issue is seems, although no culture was done in ER. (3) 17 weeks gestation of : (4) Nausea & vomiting: Qualifiers: Vomiting type: unspecified Qualified Code(s): R11.2 - Nausea with vomiting, unspecified Assessment/Plan: now just from pain. only vomited once today after lunch. (5) Acute hypokalemia: Assessment/Plan: resolved. (6) Depression affecting : Assessment/Plan: will have SW see her. Current Meds Current Meds: Current Medications Generic Name Dose Route Start Last Admin Trade Name Freq PRN Reason Stop Dose Admin Acetaminophen 1,000 mg 05/09/24 10:39 05/10/24 16:01 Acetaminophen 500 Mg Tablet PO 1,000 mg Q8H PRN Administration Mild Pain or Fever>38C(100.4F) Bupropion HCl 150 mg 05/09/24 09:00 05/10/24 08:08 Bupropion Sr 150 Mg Tablet PO 150 mg DAILY DADA Administration Docusate Sodium 200 mg 05/09/24 21:00 05/10/24 08:08 Docusate Sodium 100 Mg Capsule PO 200 mg BID DADA Administration Hydroxyzine Pamoate 25 mg 05/08/24 21:41 Hydroxyzine Pamoate 25 Mg Capsule PO BID PRN anxiety Lactated Ringer's 1,000 mls @ 75 mls/hr 05/09/24 17:00 05/10/24 18:16 Lr IV 75 mls/hr .[id number] DADA Administration Ketorolac Tromethamine 15 mg 05/10/24 14:00 05/10/24 20:18 Ketorolac 30 Mg/Ml Vial IVP 05/11/24 08:01 15 mg Q6H DADA Administration Magnesium Hydroxide 2,400 mg 05/10/24 13:40 05/10/24 14:22 Magnesium Hydroxide 2,400 Mg/30 Ml Udc PO 2,400 mg 1500 PRN Administration Constipation Morphine Sulfate 2 mg 05/09/24 11:16 05/10/24 20:24 Morphine 2 Mg/Ml Carpuject IVP 2 mg Q2H PRN Administration Abdominal Pain Ondansetron HCl 4 mg 05/09/24 10:45 05/09/24 15:01 Ondansetron Odt 4 Mg Tablet PO 4 mg Q4HR PRN Administration Nausea / Vomiting Ondansetron HCl 4 mg 05/09/24 11:08 05/10/24 18:12 Ondansetron 4 Mg/2 Ml Vial IVP 4 mg Q4HR PRN Administration Nausea / Vomiting Oxycodone HCl 5 - 10 mg 05/09/24 10:45 05/10/24 12:11 Oxycodone 5 Mg Tablet PO 10 mg Q4HR PRN Administration Moderate Pain (Level 4-6) Multivit/Folic Acid/Iron 1 tab 05/10/24 14:00 05/10/24 18:17 Vitamin Tablet PO Not Given DAILYWM DADA Promethazine HCl 25 mg 05/09/24 13:59 05/09/24 15:51 Promethazine 25 Mg Tablet MA 25 mg Q6HR PRN Administration Nausea / Vomiting Promethazine HCl 25 mg 05/10/24 13:40 Promethazine 25 Mg Tablet PO Q6HR PRN Nausea / Vomiting Sertraline HCl 100 mg 05/09/24 09:00 05/10/24 08:08 Sertraline 50 Mg Tablet PO 100 mg DAILY DADA Administration Lab Result Lab results reviewed: Yes 05/09/24 03:07 05/09/24 03:07 Additional Planning Condition/Complexity: Stable My Orders: My Active Orders 05/10/24 13:40 Social Work Consult [CONS] Routine Magnesium Hydroxide [Milk of Magnesia] 2,400 mg PO 1500 PRN Promethazine [Phenergan] 25 mg PO Q6HR PRN 05/10/24 14:00 Ketorolac Inj (30Mg) [Toradol Inj (30Mg)] 15 mg IVP Q6H Vitamin [Trinatal Rx 1] 1 tab PO DAILYWM Plan Discussed with:: Patient Time Spent: 15-30 minutes Subjective Subjective Patient Reports: Other (patient says pain is till 7 out of 10. toradol helps some but not for long. not ready for discharge. has eaten some. ) Nursing Reports: Constipation and Headache Objective Vital Signs: Vital Signs - 24 hr 05/09/24 21:45 05/09/24 22:18 05/09/24 23:45 Temperature 37.1 C Temperature Source Temporal Artery Scan Pulse Rate [Radial] 57 L Respiratory Rate 16 Blood Pressure [Right Brachial artery] 99/60 O2 Saturation 98 Pain Intensity 8 5 Pain Intensity [Bilateral Flank] 05/10/24 00:00 05/10/24 00:15 05/10/24 01:45 Temperature 37.3 C Temperature Source Temporal Artery Scan Pulse Rate [Radial] 52 L Respiratory Rate 15 Blood Pressure [Right Brachial artery] 98/58 L O2 Saturation 95 Pain Intensity 1 Pain Intensity [Bilateral Flank] 5 05/10/24 05:22 05/10/24 05:44 05/10/24 06:21 Temperature 37 C Temperature Source Temporal Artery Scan Pulse Rate [Radial] 54 L Respiratory Rate 15 Blood Pressure [Right Brachial artery] 93/53 L O2 Saturation 97 Pain Intensity 9 Pain Intensity [Bilateral Flank] 8 05/10/24 06:57 05/10/24 08:00 05/10/24 08:12 Temperature Temperature Source Pulse Rate [Radial] Respiratory Rate Blood Pressure [Right Brachial artery] O2 Saturation Pain Intensity 8 7 Pain Intensity [Bilateral Flank] 7 05/10/24 08:12 05/10/24 08:38 05/10/24 08:38 Temperature Temperature Source Pulse Rate [Radial] Respiratory Rate Blood Pressure [Right Brachial artery] O2 Saturation Pain Intensity 7 6 6 Pain Intensity [Bilateral Flank] 05/10/24 09:00 05/10/24 12:00 05/10/24 12:11 Temperature 36.4 C L Temperature Source Temporal Artery Scan Pulse Rate [Radial] 61 Respiratory Rate 16 Blood Pressure [Right Brachial artery] 97/56 L O2 Saturation Pain Intensity 8 Pain Intensity [Bilateral Flank] 8 05/10/24 12:41 05/10/24 14:00 05/10/24 14:19 Temperature 37.0 C Temperature Source Temporal Artery Scan Pulse Rate [Radial] 61 Respiratory Rate 18 Blood Pressure [Right Brachial artery] 112/64 O2 Saturation 100 Pain Intensity 6 6 Pain Intensity [Bilateral Flank] 05/10/24 16:00 05/10/24 16:01 05/10/24 16:31 Temperature Temperature Source Pulse Rate [Radial] Respiratory Rate Blood Pressure [Right Brachial artery] O2 Saturation Pain Intensity 6 6 Pain Intensity [Bilateral Flank] 6 05/10/24 16:51 05/10/24 18:08 05/10/24 18:38 Temperature 37.1 C Temperature Source Temporal Artery Scan Pulse Rate [Radial] 64 Respiratory Rate 18 Blood Pressure [Right Brachial artery] 123/71 O2 Saturation Pain Intensity 8 6 Pain Intensity [Bilateral Flank] 05/10/24 20:00 05/10/24 20:18 05/10/24 20:24 Temperature Temperature Source Pulse Rate [Radial] Respiratory Rate Blood Pressure [Right Brachial artery] O2 Saturation Pain Intensity 8 8 Pain Intensity [Bilateral Flank] 8 05/10/24 20:44 Temperature 37.2 C Temperature Source Tympanic Pulse Rate [Radial] 56 L Respiratory Rate 17 Blood Pressure [Right Brachial artery] 103/56 L O2 Saturation 96 Pain Intensity Pain Intensity [Bilateral Flank] Oxygen O2 Source Room air I&O (Last 24 Hrs): Intake and Output Totals x24h 05/08/24 05/09/24 05/10/24 23:59 23:59 23:59 Intake Total 1000 / 1000 1999 / 1999 1917 / 1917 Output Total 1050 / 1050 1450 / 1450 Balance 1000 / 1000 950 / 950 468 / 468 General: Alert, Oriented x3, Cooperative and No acute distress Neuro: Alert and CN 2-12 Grossly Intact Cardiovascular: Regular rate Respiratory: No respiratory distress Abdomen: No tenderness and Other (fundus not tender.) Results Results: Laboratory Results WBC 12.9 x10^3/uL (4.8-10.8) H 05/09/24 03:07 RBC 3.29 10^6/uL (4.20-5.40) L 05/09/24 03:07 Hgb 10.9 g/dL (12.0-16.0) L 05/09/24 03:07 Hct 34.6 % (37.0-47.0) L 05/09/24 03:07 MCV 105.2 fL (81.0-99.0) H 05/09/24 03:07 MCH 33.1 pg (27.0-31.0) H 05/09/24 03:07 MCHC 31.5 g/dL (32.0-36.0) L 05/09/24 03:07 RDW 13.5 % (12.0-15.0) 05/09/24 03:07 Plt Count 272 10^3/uL (130-450) 05/09/24 03:07 MPV 9.6 fL (7.9-10.8) 05/09/24 03:07 Neut # (Auto) Not Reportable 05/09/24 03:07 Lymph # (Auto) Not Reportable 05/09/24 03:07 [place] # (Auto) Not Reportable 05/09/24 03:07 Eos # (Auto) Not Reportable 05/09/24 03:07 Baso # (Auto) Not Reportable 05/09/24 03:07 Absolute Nucleated RBC Not Reportable 05/09/24 03:07 Total Counted 100 05/09/24 03:07 Band Neuts % (Manual) 0 % (0-10) 05/09/24 03:07 Reactive Lymphs % (Man) 1 % 05/09/24 03:07 Abnorm Lymph % (Manual) 0 % 05/09/24 03:07 Nucleated RBC % Not Reportable 05/09/24 03:07 Neutrophils # (Manual) 6.6 10^3/uL (1.5-6.6) 05/09/24 03:07 Lymphocytes # (Manual) 5.7 10^3/uL (1.5-3.5) H 05/09/24 03:07 Monocytes # (Manual) 0.4 10^3/uL (0.0-1.0) 05/09/24 03:07 Eosinophils # (Manual) 0.1 10^3/uL (0-0.7) 05/09/24 03:07 Basophils # (Manual) 0.1 10^3/uL (0-0.1) 05/09/24 03:07 Differential Comment MANUAL DIFFERENTIAL 05/09/24 03:07 WBC Morphology NORMAL APPEARANCE (NORMAL) 05/09/24 03:07 Platelet Estimate NORMAL (130-450,000) (NORMAL) 05/09/24 03:07 Platelet Morphology NORMAL APPEARANCE (NORMAL) 05/09/24 03:07 RBC Morph Micro Appear NORMAL APPEARANCE (NORMAL) 05/09/24 03:07 Sodium 136 mmol/L (135-145) 05/09/24 03:07 Potassium 3.6 mmol/L (3.5-4.5) 05/09/24 03:07 Chloride 108 mmol/L (101-111) 05/09/24 03:07 Carbon Dioxide 23 mmol/L (21-32) 05/09/24 03:07 Anion Gap 5.0 (6-13) L 05/09/24 03:07 BUN 4 mg/dL (6-20) L 05/09/24 03:07 Creatinine 0.5 mg/dL (0.6-1.3) L 05/09/24 03:07 Estimated GFR (MDRD) 145 (>89) 05/09/24 03:07 Glucose 89 mg/dL (74-104) 05/09/24 03:07 Lactic Acid 2.1 mmol/L (0.5-2.2) 05/09/24 03:07 Calcium 7.7 mg/dL (8.5-10.3) L 05/09/24 03:07 Total Bilirubin 0.4 mg/dL (0.2-1.0) 05/08/24 20:06 AST 20 IU/L (10-42) 05/08/24 20:06 ALT 15 IU/L (10-60) 05/08/24 20:06 Alkaline Phosphatase 66 IU/L (42-121) 05/08/24 20:06 Total Protein 6.4 g/dL (6.4-8.9) 05/08/24 20:06 Albumin 3.7 g/dL (3.2-5.5) 05/08/24 20:06 Globulin 2.7 g/dL (2.1-4.2) 05/08/24 20:06 Albumin/Globulin Ratio 1.4 (1.0-2.2) 05/08/24 20:06 Lipase 16 U/L (11-82) 05/08/24 20:06 Urine Color YELLOW 05/08/24 20:06 Urine Clarity CLOUDY (CLEAR) 05/08/24 20:06 Urine pH 6.0 PH (5.0-7.5) 05/08/24 20:06 Ur Specific [place] >=1.030 (1.002-1.030) H 05/08/24 20:06 Urine Protein 100 mg/dL (NEGATIVE) H 05/08/24 20:06 Urine Glucose (UA) NEGATIVE mg/dL (NEGATIVE) 05/08/24 20:06 Urine Ketones 40 mg/dL (NEGATIVE) H 05/08/24 20:06 Urine Occult Blood LARGE (NEGATIVE) H 05/08/24 20:06 Urine Nitrite POSITIVE (NEGATIVE) H 05/08/24 20:06 Urine Bilirubin NEGATIVE (NEGATIVE) 05/08/24 20:06 Urine Urobilinogen 0.2 (NORMAL) E.U./dL (NORMAL) 05/08/24 20:06 Ur Leukocyte Esterase TRACE (NEGATIVE) H 05/08/24 20:06 Urine RBC 6-10 /HPF (0-5) H 05/08/24 20:06 Urine WBC 11-25 /HPF (0-5) H 05/08/24 20:06 Ur Epithelial Cells FEW Transitional /HPF (<= Few) 05/08/24 20:06 Ur Squamous Epith Cells MOD Squamous (<= Few) H 05/08/24 20:06 Urine Bacteria Moderate /HPF (None Seen) H 05/08/24 20:06 Urine Mucus Few Strands 05/08/24 20:06 Ur Microscopic Review INDICATED 05/08/24 20:06 Urine Culture Comments NOT INDICATED 05/08/24 20:06 Procedures Procedures: none Current Medications Current Medications Current Medications: Current Medications Generic Name Dose Route Start Last Admin Trade Name Freq PRN Reason Stop Dose Admin Acetaminophen 1,000 mg 05/09/24 10:39 05/10/24 16:01 Acetaminophen 500 Mg Tablet PO 1,000 mg Q8H PRN Administration Mild Pain or Fever>38C(100.4F) Bupropion HCl 150 mg 05/09/24 09:00 05/10/24 08:08 Bupropion Sr 150 Mg Tablet PO 150 mg DAILY DADA Administration Docusate Sodium 200 mg 05/09/24 21:00 05/10/24 08:08 Docusate Sodium 100 Mg Capsule PO 200 mg BID DADA Administration Hydroxyzine Pamoate 25 mg 05/08/24 21:41 Hydroxyzine Pamoate 25 Mg Capsule PO BID PRN anxiety Lactated Ringer's 1,000 mls @ 75 mls/hr 05/09/24 17:00 05/10/24 18:16 Lr IV 75 mls/hr .[id number] DADA Administration Ketorolac Tromethamine 15 mg 05/10/24 14:00 05/10/24 20:18 Ketorolac 30 Mg/Ml Vial IVP 05/11/24 08:01 15 mg Q6H DADA Administration Magnesium Hydroxide 2,400 mg 05/10/24 13:40 05/10/24 14:22 Magnesium Hydroxide 2,400 Mg/30 Ml Udc PO 2,400 mg 1500 PRN Administration Constipation Morphine Sulfate 2 mg 05/09/24 11:16 05/10/24 20:24 Morphine 2 Mg/Ml Carpuject IVP 2 mg Q2H PRN Administration Abdominal Pain Ondansetron HCl 4 mg 05/09/24 10:45 05/09/24 15:01 Ondansetron Odt 4 Mg Tablet PO 4 mg Q4HR PRN Administration Nausea / Vomiting Ondansetron HCl 4 mg 05/09/24 11:08 05/10/24 18:12 Ondansetron 4 Mg/2 Ml Vial IVP 4 mg Q4HR PRN Administration Nausea / Vomiting Oxycodone HCl 5 - 10 mg 05/09/24 10:45 05/10/24 12:11 Oxycodone 5 Mg Tablet PO 10 mg Q4HR PRN Administration Moderate Pain (Level 4-6) Multivit/Folic Acid/Iron 1 tab 05/10/24 14:00 05/10/24 18:17 Vitamin Tablet PO Not Given DAILYWM DADA Promethazine HCl 25 mg 05/09/24 13:59 05/09/24 15:51 Promethazine 25 Mg Tablet MA 25 mg Q6HR PRN Administration Nausea / Vomiting Promethazine HCl 25 mg 05/10/24 13:40 Promethazine 25 Mg Tablet PO Q6HR PRN Nausea / Vomiting Sertraline HCl 100 mg 05/09/24 09:00 05/10/24 08:08 Sertraline 50 Mg Tablet PO 100 mg DAILY DADA Administration
[2024-05-11 06:35] LABS: BASOPHILS # (AUTO) 0.1 10^3/uL (0.0-0.1); BASOPHILS % (AUTO) 0.6 %; EOSINOPHILS # (AUTO) 0.2 10^3/uL (0.0-0.7); EOSINOPHILS % (AUTO) 1.8 %; HCT - HEMATOCRIT 30.4 % (37.0-47.0); HGB - HEMOGLOBIN 9.8 g/dL (12.0-16.0); LYMPHOCYTES # (AUTO) 4.1 10^3/uL (1.5-3.5); LYMPHOCYTES % (AUTO) 45.7 %; MEAN CORPUSCULAR HEMOGLOBIN 33.2 pg (27.0-31.0); MEAN CORPUSCULAR HGB CONC 32.2 g/dL (32.0-36.0); MEAN CORPUSCULAR VOLUME 103.1 fL (81.0-99.0); MEAN PLATELET VOLUME 9.6 fL (7.9-10.8); MONOCYTES # (AUTO) 0.7 10^3/uL (0.0-1.0); MONOCYTES % (AUTO) 7.2 %; NEUTROPHILS % (AUTO) 44.5 %; PLT - PLATELET COUNT 231 10^3/uL (130-450); RED BLOOD COUNT 2.95 10^6/uL (4.20-5.40); RED CELL DISTRIBUTION WIDTH 13.3 % (12.0-15.0)
[2024-05-11 06:52] LABS: CALCIUM 7.7 mg/dL (8.5-10.3); CREATININE 0.4 mg/dL (0.6-1.3); POTASSIUM 3.6 mmol/L (3.5-4.5)
--- NOTE | 2024-05-11 10:12 | PROVIDER PROGRESS NOTE ---
Subjective Prog Note Date Prog Note Date: 05/11/24 Subjective Subjective: Alicja reports feeling a little better this morning. Pain currently 5/10, reports more of an annoyance. Still in the same location in her left flank. Last episode of vomiting was last evening. Had chicken broth last night which made her feel a lot better. No F/C, vaginal bleeding. Feels up for trying oral meds only today to see how she does. Very hopeful that she can go home and not have to have a procedure for this stone. Reports that her mood is significantly improved from when she was here at the end of March. She started counseling with [employer] and says this has been incredibly helpful for her. Has from her partner and is living with her mom and dad, feels very safe at home. Now feeling excited about this and wants to continue. Current Medications Current Medications Current Medications: Current Medications Generic Name Dose Route Start Last Admin Trade Name Freq PRN Reason Stop Dose Admin Acetaminophen 1,000 mg 05/09/24 10:39 05/11/24 00:05 Acetaminophen 500 Mg Tablet PO 1,000 mg Q8H PRN Administration Mild Pain or Fever>38C(100.4F) Bupropion HCl 150 mg 05/09/24 09:00 05/11/24 08:30 Bupropion Sr 150 Mg Tablet PO 150 mg DAILY DADA Administration Cephalexin 500 mg 05/11/24 12:00 Cephalexin 250 Mg Capsule PO 05/16/24 11:59 Q6HR DADA Docusate Sodium 200 mg 05/09/24 21:00 05/11/24 08:29 Docusate Sodium 100 Mg Capsule PO 200 mg BID DADA Administration Hydroxyzine Pamoate 25 mg 05/08/24 21:41 Hydroxyzine Pamoate 25 Mg Capsule PO BID PRN anxiety Magnesium Hydroxide 2,400 mg 05/10/24 13:40 05/10/24 14:22 Magnesium Hydroxide 2,400 Mg/30 Ml Udc PO 2,400 mg 1500 PRN Administration Constipation Morphine Sulfate 2 mg 05/09/24 11:16 05/11/24 06:33 Morphine 2 Mg/Ml Carpuject IVP 2 mg Q2H PRN Administration Abdominal Pain Ondansetron HCl 4 mg 05/09/24 10:45 05/09/24 15:01 Ondansetron Odt 4 Mg Tablet PO 4 mg Q4HR PRN Administration Nausea / Vomiting Ondansetron HCl 4 mg 05/09/24 11:08 05/10/24 23:02 Ondansetron 4 Mg/2 Ml Vial IVP 4 mg Q4HR PRN Administration Nausea / Vomiting Oxycodone HCl 5 - 10 mg 05/09/24 10:45 05/11/24 04:03 Oxycodone 5 Mg Tablet PO 10 mg Q4HR PRN Administration Moderate Pain (Level 4-6) Multivit/Folic Acid/Iron 1 tab 05/10/24 14:00 05/11/24 08:30 Vitamin Tablet PO 1 tab DAILYWM DADA Administration Promethazine HCl 25 mg 05/09/24 13:59 05/10/24 22:10 Promethazine 25 Mg Tablet [place] 25 mg Q6HR PRN Administration Nausea / Vomiting Promethazine HCl 25 mg 05/10/24 13:40 Promethazine 25 Mg Tablet PO Q6HR PRN Nausea / Vomiting Sertraline HCl 100 mg 05/09/24 09:00 05/11/24 08:30 Sertraline 50 Mg Tablet PO 100 mg DAILY DADA Administration Objective Vital Signs/Intake & Output Vital Signs: Vital Signs x48h Temp Pulse Resp BP BP Pulse Ox 05/11/24 08:34 98.6 F 56 L 16 94/56 L 97 05/11/24 04:06 98.6 F 56 L 16 96/58 L 95 Intake & Output: Intake & Output 05/08/24 05/09/24 05/10/24 05/11/24 23:59 23:59 23:59 23:59 Intake Total 1000 / 1000 1999 191 / 1917 923 / 923 Output Total 1050 / 1050 1650 / 1650 55 / 55 Balance 1000 / 1000 950 / 950 268 / 268 868 / 868 Weight (kg) 156 lb 156 lb 8.451 oz Objective Comments/Other: Gen: NAD, sitting in bed on phone Chest: non labored respirations Abd: gravid, non tender Back: no CVA tenderness Ext: no LE edema Lab Results 05/11/24 06:29 05/11/24 06:29 Other Labs: Lab Results x24hrs 05/11/24 Range/Units 06:29 WBC 9.0 (4.8-10.8) x10^3/uL RBC 2.95 L (4.20-5.40) 10^6/uL Hgb 9.8 L (12.0-16.0) g/dL Hct 30.4 L (37.0-47.0) % MCV 103.1 H (81.0-99.0) fL MCH 33.2 H (27.0-31.0) pg MCHC 32.2 (32.0-36.0) g/dL RDW 13.3 (12.0-15.0) % Plt Count 231 (130-450) 10^3/uL MPV 9.6 (7.9-10.8) fL Neut # (Auto) 4.0 (1.5-6.6) 10^3/uL Lymph # (Auto) 4.1 H (1.5-3.5) 10^3/uL Major # (Auto) 0.7 (0.0-1.0) 10^3/uL Eos # (Auto) 0.2 (0.0-0.7) 10^3/uL Baso # (Auto) 0.1 (0.0-0.1) 10^3/uL Absolute Nucleated RBC 0.00 x10^3/uL Nucleated RBC % 0.0 /100WBC Sodium 138 (135-145) mmol/L Potassium 3.6 (3.5-4.5) mmol/L Chloride 107 (101-111) mmol/L Carbon Dioxide 23 (21-32) mmol/L Anion Gap 8.0 (6-13) BUN 3 L (6-20) mg/dL Creatinine 0.4 L (0.6-1.3) mg/dL Estimated GFR (MDRD) 187 (>89) Glucose 80 (74-104) mg/dL Calcium 7.7 L (8.5-10.3) mg/dL Assessment/Plan Problem List (1) Renal and ureteric calculus: Impression: - Will switch completely to oral medication today. Will stop toradol, continue PO tylenol and oxycodone PRN. PO Kelfex started, to complete 7 days course of antibiotics then will plan to switch to daily suppression. - Repeat renal US for follow up left stone - Discussed if she continues to have severe pain requiring IV meds today, will need to explore transfer for possible surgical management of stone. (2) UTI (urinary tract infection) in in second trimester: (3) 17 weeks gestation of : (4) Nausea & vomiting: Qualifiers: Vomiting type: unspecified Qualified Code(s): R11.2 - Nausea with vomiting, unspecified (5) Acute hypokalemia: (6) Depression affecting :
[2024-05-11] MEDS: cephALEXin 250 MG CAPSULE PO SCH (12:01)
[2024-05-11 13:08] VITALS: TEMP 99
--- NOTE | 2024-05-11 15:56 | Ultrasound Report ---
PROCEDURE: [facility] INDICATIONS: follow up of left kidney stone, pt still with pain TECHNIQUE: Real-time scanning was performed of the left kidney, with image documentation. Minimal imaging of th e uterus, as well COMPARISON: 05/09/2024. FINDINGS: Left kidney: Left kidney is normal in size measuring 1.9 cm. No hydronephrosis. The previously noted left renal stone is not identified on the current study. Miscellaneous: There is a living intrauterine with a heart rate of 147 bpm. IMPRESSION: Normal size left kidney. No hydronephrosis. Left renal stone not identified. Living second trimester intrauterine . Reviewed by: Scot Giordano MD on 05/11/2024 3:54 PM PST Approved by: Scot Giordano MD on 05/11/2024 3:54 PM PST Station ID: [id number]
--- NOTE | 2024-05-11 16:56 | Discharge Summary ---
Discharge Summary Admit Date: 05/08/24 Discharge Date: 05/11/24 Discharging Provider: Yuliet Gustafson MD HPI History of Present Illness: Admission Diagnosis: - SIUP at 17w2d - UTI - Left renal stone - Depression - Nausea and vomiting in Discharge Diagnosis: - Same Procedures: none Hospital Course: Alicja presented to the ED at 17w2d with pain similiar to prior episodes of renal stones, was found to have a left-sided kidey stone, in addition to N/V and recent E. coli UTI. She was admitted for IV antibiotics as well as pain control and management of N/V. Renal US was repeated on day 3 and no stone or hydronephrosis viislbe (bladder was not imaged). Alicja was still experiencing pain, however, comfortable with discharge home and continuation of PO medication (antibiotic, antiemetic, tylenol, and oxycodone PRN for pain(. Plan to continue antibiotics with PO keflex to complete 7 days course, then will starting dailly suppression therapy with macrobid. Has referral to urologist in [facility], but we discussed placing new referral to Dr. Manuel here at . Return precautions were reviewed. She will keep f/u OB visit which is scheduled for tomorrow. OBJECTIVE: Vital signs reviewed LAB & IMAGING STUDIES: 05/11/24: EXAM: [id number] US/RENLTD ([id number]) PROCEDURE: US Renal Ltd (Retro Ltd) INDICATIONS: follow up of left kidney stone, pt still with pain TECHNIQUE: Real-time scanning was performed of the left kidney, with image documentation. Minimal imaging of the uterus, as well COMPARISON: 05/09/2024. FINDINGS: Left kidney: Left kidney is normal in size measuring 1.9 cm. No hydronephrosis. The previously noted left renal stone is not identified on the current study. Miscellaneous: There is a living intrauterine with a heart rate of 147 bpm. IMPRESSION: Normal size left kidney. No hydronephrosis. Left renal stone not identified. Living second trimester intrauterine . Reviewed by: Scot Giordano MD on 05/11/2024 3:54 PM PST Approved by: Scot Giordano MD on 05/11/2024 3:54 PM PST 05/09/24: EXAM: [id number] US/MARY ANN ([id number]) PROCEDURE: US Renal (Retroperitoneal) INDICATIONS: LT FLANK PAIN, CONCERN FOR OBSTRUCTING STONE TECHNIQUE: Real-time scanning was performed of the retroperitoneal organs, with image documentation. COMPARISON: None. FINDINGS: Kidneys: Kidneys are normal in size. Right kidney measures 11.4 cm long; left kidney measures 12.1 cm long. Right renal cortical thickness is 1.2 cm; left renal cortical thickness is 1.3 cm. Nonobstructing 7 mm left renal calculus. Bladder: Pre-void bladder volume is 0 mL. Post-void residual is not obtained. Pre-void images demonstrate no intraluminal masses or stones. On pre-void images, neither ureteral jets are noted with color Doppler interrogation. (Of note, ureteral jets may not be detectable in up to 25% of cases due to insufficient differences in specific gravity between ureteral and bladder urine). Miscellaneous: No free abdominal fluid. Single live intrauterine . IMPRESSION: Nonobstructing 7 mm left renal calculus. The above findings are concordant with preliminary report. Reviewed by: Araseli Pardo MD on 05/09/2024 9:55 AM PST Approved by: Araseli Pardo MD on 05/09/2024 9:55 AM PST PLAN: Continue PO medications as noted above (I called pharmacy and they confirmed that they received scripts). Return precautions reviewed. Will place outpatient referral for urology follow-up. Consider repeat renal ultrasound outpatient if symptoms do not resolve. Yuliet Gustafson MD ALLERGIES Allergies Allergy/AdvReac Type Severity Reaction Status Date / Time amoxicillin Allergy Intermediate Hives Verified 05/08/24 19:49 coconut Allergy Intermediate Hives Verified 05/08/24 19:49 tamsulosin (From Flomax) Allergy Respiratory Verified 05/09/24 13:52 metoclopramide (From Reglan) AdvReac AKATHISIA Verified 05/09/24 13:52 prochlorperazine (From AdvReac AKATHISIA Verified 05/09/24 13:52 Compazine) MEDICATIONS Ambulatory Orders Medication Instructions Recorded Confirmed bupropion HCl 150 mg tablet,12 hr 150 mg PO QDAY #90 tabs 03/31/24 05/12/24 sustained-release (Wellbutrin SR) vitamins no.159-iron 1 tab PO DAILYWM 03/31/24 05/12/24 fumarate 28 mg-folic acid 800 mcg tablet ( Vitamin) pyridoxine (vitamin B6) 100 mg 100 mg PO QID 04/14/24 05/12/24 tablet doxylamine succinate 25 mg tablet 12.5 mg PO QID 04/19/24 05/12/24 buspirone 5 mg tablet 5 mg PO BID PRN anxiety #18 tabs 04/20/24 05/12/24 hydroxyzine pamoate 25 mg capsule 25 mg PO BID PRN anxiety #20 caps 04/20/24 05/12/24 (Vistaril) sertraline 100 mg tablet 100 mg PO QDAY #30 tabs 04/20/24 05/12/24 acetaminophen 500 mg tablet 1,000 mg (2 x 500 mg) PO Q8H PRN 05/11/24 05/12/24 Mild Pain Or Fever>38c(100.4f) #30 tabs cephalexin 500 mg capsule 500 mg PO Q6HR #18 caps 05/11/24 05/12/24 docusate sodium 100 mg capsule 200 mg (2 x 100 mg) PO BID PRN 05/11/24 05/12/24 Constipation #60 caps ondansetron 4 mg disintegrating 4 mg PO Q4HR PRN Nausea / Vomiting 05/11/24 05/12/24 tablet #20 tabs oxycodone 5 mg tablet 5 mg PO Q6H PRN Moderate Pain 05/11/24 05/12/24 (Level 4-6) #20 tabs promethazine 25 mg tablet 25 mg PO Q6HR PRN Nausea / 05/11/24 05/12/24 Vomiting #20 tabs promethazine 25 mg tablet 25 mg OK Q6HR PRN Nausea / 05/11/24 05/12/24 Vomiting #5 tabs LABS 05/11/24 06:29 05/11/24 06:29 Discharge Plan Discharge Patient Disposition: Home, Self Care Condition: Stable Prescriptions: New cephalexin 500 mg capsule 500 mg PO Q6HR Qty: 18 0RF acetaminophen 500 mg Tablet 1,000 mg PO Q8H PRN (Reason: Mild Pain Or Fever>38c(100.4f)) Qty: 30 0RF promethazine 25 mg Tablet 25 mg OK Q6HR PRN (Reason: Nausea / Vomiting) Qty: 5 1RF promethazine 25 mg Tablet 25 mg PO Q6HR PRN (Reason: Nausea / Vomiting) Qty: 20 1RF docusate sodium 100 mg Capsule 200 mg PO BID PRN (Reason: Constipation) Qty: 60 1RF ondansetron 4 mg Tablet,Disintegrating 4 mg PO Q4HR PRN (Reason: Nausea / Vomiting) Qty: 20 1RF Continued sertraline 100 mg tablet 100 mg PO QDAY Qty: 30 0RF Rx Instructions: Start with 1/2 tablet (50mg) x 1 week then increase to full dose hydroxyzine pamoate [Vistaril] 25 mg capsule 25 mg PO BID PRN (Reason: anxiety ) Qty: 20 1RF buspirone 5 mg tablet 5 mg PO BID PRN (Reason: anxiety) Qty: 18 0RF pyridoxine (vitamin B6) 100 mg tablet 100 mg PO QID doxylamine succinate 25 mg tablet 12.5 mg PO QID Vitamin 28 mg iron- 800 mcg tablet 1 tab PO DAILYWM bupropion HCl [Wellbutrin SR] 150 mg tablet sustained-release 12 hr 150 mg PO QDAY Qty: 90 3RF No Action oxycodone 5 mg tablet 5 mg PO Q6H PRN (Reason: Moderate Pain (Level 4-6)) Qty: 20 0RF Interventions: Discharge Last Done: 05/11/24 17:00 Discharge Checklist - Nursing Last Done: 05/11/24 17:00 Print Language: Slovenian Patient Instructions: Kidney Stones Expectant Therapy
[2024-05-11 16:58] VITALS: BP 107/56; O2SAT 99
== END 2024-05-11 17:18 | disposition home or self-care (01) ==
LOC: ED 19:41 → FBP 19:41
PROVIDERS: ADMIT Obstetrics & Gynecology; ATTEND Obstetrics & Gynecology
DX: O98.812 Other maternal infectious and parasitic diseases complicating pregnancy, second trimester; O99.891 Other specified diseases and conditions complicating pregnancy; B37.32 Chronic candidiasis of vulva and vagina; F31.9 Bipolar disorder, unspecified; B96.20 Unspecified Escherichia coli [E. coli] as the cause of diseases classified elsewhere; O99.332 Smoking (tobacco) complicating pregnancy, second trimester; O99.282 Endocrine, nutritional and metabolic diseases complicating pregnancy, second trimester; O99.412 Diseases of the circulatory system complicating pregnancy, second trimester; O21.8 Other vomiting complicating pregnancy; O23.42 Unspecified infection of urinary tract in pregnancy, second trimester; Z3A.17 17 weeks gestation of pregnancy; I95.9 Hypotension, unspecified; E87.6 Hypokalemia; N39.0 Urinary tract infection, site not specified; F17.290 Nicotine dependence, other tobacco product, uncomplicated; Z87.442 Personal history of urinary calculi; N20.0 Calculus of kidney; O99.342 Other mental disorders complicating pregnancy, second trimester; O99.820 Streptococcus B carrier state complicating pregnancy

== ENCOUNTER 2024-10-08 07:47 | Inpatient (IN) ==
[2024-10-08] MEDS ORDERED: CALCIUM CARBONATE CHEW 500 MG TABLET PO PRN (07:55)
[2024-10-08] MEDS ORDERED: TRANEXAMIC ACID IN NACL 1,000 MG/100 ML BAG IV PRN (07:55)
[2024-10-08] MEDS ORDERED: CARBOPROST TROMETHAMINE 250 MCG/ML VIAL IM PRN (07:55)
[2024-10-08] MEDS ORDERED: ACETAMINOPHEN 500 MG TABLET PO PRN (07:55)
[2024-10-08] MEDS ORDERED: SODIUM CHLORIDE FLUSH 0.9% 10 ML SYRINGE IVP PRN (07:55)
[2024-10-08] MEDS ORDERED: METHYLERGONOVINE 0.2 MG/ML VIAL IM PRN (07:55)
[2024-10-08] MEDS ORDERED: miSOPROStoL 200 MCG TABLET PR PRN (07:55)
[2024-10-08] MEDS ORDERED: TERBUTALINE 1 MG/ML VIAL SUBQ PRN (07:55)
[2024-10-08] MEDS ORDERED: LABETALOL 20 MG/4 ML SYRINGE IVP PRN ×3 (07:55)
[2024-10-08] MEDS ORDERED: miSOPROStoL 200 MCG TABLET BC PRN (07:55)
[2024-10-08] MEDS ORDERED: NIFEdipine 10 MG CAPSULE PO PRN (07:55)
[2024-10-08] MEDS ORDERED: OXYTOCIN 10 UNIT/ML VIAL IM PRN (07:55)
[2024-10-08] MEDS ORDERED: lidocaine 1% 20 ML MDV ID PRN (07:55)
[2024-10-08] MEDS ORDERED: hydrALAZINE INJ 20 MG/ML VIAL IVP PRN (07:55)
[2024-10-08] MEDS ORDERED: ONDANSETRON ODT 4 MG TABLET PO PRN (07:55)
[2024-10-08] MEDS ORDERED: OXYTOCIN/SODIUM CHLORIDE 500 ML IV PRN (07:55)
[2024-10-08 08:41] LABS: BASOPHILS # (AUTO) 0.1 10^3/uL (0.0-0.1); BASOPHILS % (AUTO) 0.6 %; EOSINOPHILS # (AUTO) 0.1 10^3/uL (0.0-0.7); EOSINOPHILS % (AUTO) 1.8 %; HCT - HEMATOCRIT 32.9 % (37.0-47.0); HGB - HEMOGLOBIN 10.7 g/dL (12.0-16.0); LYMPHOCYTES # (AUTO) 2.8 10^3/uL (1.5-3.5); LYMPHOCYTES % (AUTO) 36.6 %; MEAN CORPUSCULAR HGB CONC 32.5 g/dL (32.0-36.0); MEAN CORPUSCULAR VOLUME 101.5 fL (81.0-99.0); MEAN PLATELET VOLUME 10.4 fL (7.9-10.8); MONOCYTES # (AUTO) 0.5 10^3/uL (0.0-1.0); MONOCYTES % (AUTO) 6.6 %; NEUTROPHILS # (AUTO) 4.2 10^3/uL (1.5-6.6); NEUTROPHILS % (AUTO) 53.9 %; PLT - PLATELET COUNT 377 10^3/uL (130-450); RED BLOOD COUNT 3.24 10^6/uL (4.20-5.40); WHITE BLOOD COUNT 7.8 x10^3/uL (4.8-10.8)
[2024-10-08] MEDS: miSOPROStoL 100 MCG TABLET VG SCH (09:38)
--- NOTE | 2024-10-08 09:45 | HISTORY & PHYSICAL EXAMINATION ---
Admit History Smoking Status: Former smoker Other Maternal History Other Maternal History: Patient is a 29-year-old at 39 weeks 1 day gestation presented today for induction of labor. She had a membrane sweep yesterday, but no significant change. . She has good movement. Denies loss of fluid. No METCALF/BV or RUQP. No vaginal bleeding. Denies nausea and vomiting. Denies urinary urgency or dysuria. All other symptoms reviewed and were negative except per HPI. Course LMP: 01/08/2024 CÉSAR by LMP: 10/14/2024 Initial US Date 03/11/2024, US Age 8 weeks 5 days, CÉSAR by ultrasound: 10/16/2024 Final CÉSAR: 10/14/2024 by LMP consistent with 8- week ultrasound Pre- weight: 168 BMI: 27.9 Desires Sterility: BTL consents signed 07/27/24 Depression and anxiety: Much improved with sertraline. Has not required buspirone, but is going through relationship issues and has been problematic. Continue close monitoring of her mood. LSIL/HPV positive: Needs colposcopy . Insufficient weight gain in : Resolved. Now sufficient weight gain - EFW ordered-08/29/24 EFW 1915g, 14th%ile, 33+2 Blood type: O+ Antibody screen: negative CBC: TTS873 HCT10.9 HGB 34.6 Rubella: immune VZV: immune HBsAg: neg HepC: NR RPR/AB-EIA: NR HIV: NR Flu: declines COVID: PAP: 03/31/24 LSIL HPV+ needs Colpo GC/CT: negative HSV: Denies Genetic Testing:AFP- normal FAS:06/27/2024 Placenta: Posterior, marginal cord insertion 1.8cm from placenta edge Cord: 3-vessel cord CRISTEL: 9.2cm EFW: 395.5g EFW at 33 weeks of growth in the 14 percentile. 1915 g. 50gm GCT: 116 TDAP: 07/27/24 mls Breast Pump: given 07/27/24 3rd trimester CBC 10.8/33.1%/321 RPR: Nonreactive GBS: Negative Delivery plan: contraception: BTL HPI Current : Vital Signs Temperature 36.6 C 10/08/24 07:56 Pulse Rate 78 10/08/24 07:56 Respiratory Rate 17 06/14/25 07:56 Blood Pressure 129/95 H 10/08/24 07:56 Meds/Allgy Home Medications Ambulatory Orders Medication Instructions Recorded Confirmed bupropion HCl 150 mg tablet,12 hr 150 mg PO QDAY #90 t abs 03/31/24 10/05/24 sustained-release (Wellbutrin SR) buspirone 5 mg tablet 5 mg PO BID PRN anxiety #18 tabs 04/20/24 10/05/24 acetaminophen 500 mg tablet 1,000 mg (2 x 500 mg) PO Q 8H PRN 05/11/24 10/05/24 Mild Pain Or Fever>38c(100.4f) #30 tabs docusate sodium 100 mg capsule 200 mg (2 x 100 mg) PO BID PRN 05/11/24 10/05/24 Constipation #60 caps sertraline 100 mg tablet See Rx Instructions .Route 0 05/17/24 10/05/24 .COMPLEX #30 tabs hydrocortisone 1 % topical cream 1 applic topical DIMITRIOS Y PRN itching 07/10/24 10/05/24 (Preparation H Hydrocortisone) #28.35 grams polyethylene glycol 3350 17 17 g PO DAILY #510 grams 0 07/10/24 10/05/24 gram/dose oral powder (ClearLax) Allergies Allergies Allergy/AdvReac Type Severity Reaction Status Date / Time amoxicillin Allergy Intermediate Hives Verified 10/08/24 08:57 coconut Allergy Intermediate Hives Verified 10/08/24 08:57 tamsulosin (From Flomax) Allergy Respiratory Verified 10/08/24 08:57 metoclopramide (From Reglan) AdvReac AKATHISIA Verified 10/08/24 08:57 prochlorperazine (From AdvReac AKATHISIA Verified 10/08/24 08:57 Compazine) PFSH Active Problems All Active Problems (Updated 10/08/24 @ 12:17 by Jimy Belle MD) 39 weeks gestation of (Acute) Encounter for induction of labor (Acute) Supervision of high risk in third trimester (Acute) Umbilical cord complication (Acute) Acute headache (Acute) Recurrent UTI (urinary tract infection) complicating (Acute) History of suicidal ideation (Acute) Depression affecting (Acute) Supervision of normal (Acute) Borderline personality disorder (Acute) Bipolar 2 disorder (Acute) Medical History Medical History (Updated 10/08/24 @ 12:17 by Jimy Belle MD) Insufficient weight gain during pruritus Acute loss of vision Supervision of high risk in second trimester Nausea/vomiting in UTI in Renal and ureteric calculus 17 weeks gestation of Acute flank pain Abnormal umbilical cord UTI (urinary tract infection) Convulsive syncope Pyelonephritis Surgical History Surgical History H/O lithotripsy x 4 Family History Family History (Updated 03/11/24 @ 13:52 by Cathie Eastman RN) Mother Asthma COPD (chronic obstructive pulmonary disease) Father COPD (chronic obstructive pulmonary disease) Brother Diabetes Social History Social History Smoking Status: Former smoker Do you vape?: Yes Patient requests smoking cessation consult: Yes Initiate information on smoking cessation: Yes Living arrangement: Other Relationship: Do you feel safe in your home environment?: Yes Suffered physical, verbal, emotional, or financial abuse?: No History of Abuse: No Substance Use: cannabis (any form) Are you sexually active?: Yes Occupation: [employer] Patient has POLST: No Review of Systems Status of ROS: 10 or more systems reviewed and unremarkable except as noted in history and below Physical Abdominal Exam Vital Signs: Temp Pulse Resp BP 36.6 C 78 17 129/95 H 10/08/24 07:56 10/08/24 07:56 10/08/24 07:56 10/08/24 07:56 Other Notes Labor Progress Note/Additional Text: General: Alert, oriented, no acute distress Head: Normal cephalic atraumatic Eyes: PERRLA, extraocular motions intact. Respiratory: Normal rate of respiration. No accessory muscle use, normal respiratory effort. Cardiovascular: Regular rate and rhythm Abdomen: Gravid, nontender, nondistended Extremities: Normal range of motion Neuro: Oriented x3. Normal movements Psych: Appropriate mood and affect. Normal judgment and insight SVE: 1/0/-3 FHT: 125 BPM baseline, moderate variability, accelerations present, no decelerations. Reactive NST Valier: quiescent Plan for Labor Plan For Labor I expect patient to be DC'd or transferred within 96 hours.: Yes Conclusion/Plan Problem List (1) Encounter for induction of labor: Plan: Admit to L&D for cervical ripening. Misoprostol 25 mcg PV every 4 hours. If successful, will plan for admission for labor induction. Discussed risk, benefits, alternatives to labor induction and patient agrees and would like to proceed. Consent signed and in chart. (2) 39 weeks gestation of : Plan: As above Lab Results 10/08/24 08:30
[2024-10-08] MEDS: SODIUM CHLORIDE FLUSH 0.9% 10 ML SYRINGE IVP SCH (15:44)
[2024-10-08] MEDS: fentaNYL 100 MCG/2 ML VIAL IVP PRN (15:44)
--- NOTE | 2024-10-08 17:29 | PROVIDER PROGRESS NOTE ---
Labor Progress Note Uterine Monitoring Uterine Monitoring Mode: positive External toco Contraction Frequency (min/apart): 1-3 Monitoring Monitor Mode: positive External ultrasound Heart Rate Baseline: 120 Heart Rate Variability: positive Moderate (6-25 bmp) Accelerations: positive Present, 15x15 Decelerations: positive None Strip Review: positive Category I Vaginal Exam Dilation (in cm): 2 Effacement (%): 0 Station: -3 Labor Progress Note Labor Progress Note/Additional Text: Patient [place] too frequently for additional misoprostol. Discussed cervical ripening balloon and after counselling, patient consented. During placement, had artificial rupture of membranes with a moderate amount of clear fluid. Removed balloon and will patient to contract. Will recheck cervix in 2 hours. If not changed, will start oxytocin.
[2024-10-08] MEDS: LACTATED RINGERS 1,000 ML IV PRN (17:47)
[2024-10-08] MEDS ORDERED: buPROPion SR 150 MG TABLET PO SCH (18:00)
[2024-10-08] MEDS ORDERED: SERTRALINE 50 MG TABLET PO SCH (18:00)
[2024-10-08] MEDS ORDERED: LIDOCAINE 2%-EPI 1:100000 20 ML MDV ONE (18:04)
[2024-10-08] MEDS ORDERED: BUPIVACAINE 0.25% PF 10 ML VIAL ONE (18:05)
[2024-10-08] MEDS ORDERED: ROPIVACAINE 0.2% 200 MG/100 ML BAG EP ONE (18:05)
[2024-10-08] MEDS ORDERED: ePHEDrine 50 MG/ML VIAL IVP ONE (18:21)
[2024-10-08] MEDS ORDERED: ePHEDrine 50 MG/ML VIAL IVP PRN (19:11)
[2024-10-08] MEDS ORDERED: NALOXONE 0.4 MG/ML VIAL IVP PRN (19:11)
[2024-10-08] MEDS ORDERED: METOCLOPRAMIDE 10 MG/2 ML VIAL IVP PRN (19:11)
[2024-10-08] MEDS ORDERED: NALBUPHINE 10 MG/ML AMP IVP PRN (19:11)
--- NOTE | 2024-10-08 19:21 | ANESTHESIA PROCEDURE NOTE ---
Pre-Anesthesia VS, & Labs Diagnosis Surgical Diagnosis:: 39 weeks IOL, laboring Procedure Procedure: placement of labor epidural Vitals Vital Signs: Temp Pulse Resp BP 36.6 C 78 17 129/95 H 10/08/24 07:56 10/08/24 07:56 10/08/24 07:56 10/08/24 07:56 Height (in): 5 ft 5 in Weight (kg): 85 kg Body Mass Index: 31.1 BMI Classification: Obese NPO Last Fluid Intake: clears currently Is Patient ?: Yes Estimated Due Date:: 10/08/24 Lab Results Current Lab Results: Laboratory Tests 10/08/24 08:30: WBC 7.8, RBC 3.24 L, Hgb 10.7 L, Hct 32.9 L, MCV 101.5 H, MCH 33.0 H, MCHC 32.5, RDW 14.0, Plt Count 377, MPV 10.4, Neut # (Auto) 4.2, Lymph # (Auto) 2.8, Lyon # (Auto) 0.5, Eos # (Auto) 0.1, Baso # (Auto) 0.1, Absolute Nucleated RBC 0.00, Nucleated RBC % 0.0, Blood Type O POSITIVE, Antibody Screen NEGATIVE Lab results reviewed: Yes 10/08/24 08:30 Meds/Allgy Home Medications Ambulatory Orders Medication Instructions Recorded Confirmed bupropion HCl 150 mg tablet,12 hr 150 mg PO QDAY #90 t abs 03/31/24 10/05/24 sustained-release (Wellbutrin SR) buspirone 5 mg tablet 5 mg PO BID PRN anxiety #18 tabs 04/20/24 10/05/24 acetaminophen 500 mg tablet 1,000 mg (2 x 500 mg) PO Q 8H PRN 05/11/24 10/05/24 Mild Pain Or Fever>38c(100.4f) #30 tabs docusate sodium 100 mg capsule 200 mg (2 x 100 mg) PO BID PRN 05/11/24 10/05/24 Constipation #60 caps sertraline 100 mg tablet See Rx Instructions .Route 0 05/17/24 10/05/24 .COMPLEX #30 tabs hydrocortisone 1 % topical cream 1 applic topical DIMITRIOS Y PRN itching 07/10/24 10/05/24 (Preparation H Hydrocortisone) #28.35 grams polyethylene glycol 3350 17 17 g PO DAILY #510 grams 0 07/10/24 10/05/24 gram/dose oral powder (ClearLax) Allergies Allergies Allergy/AdvReac Type Severity Reaction Status Date / Time amoxicillin Allergy Intermediate Hives Verified 10/08/24 08:57 coconut Allergy Intermediate Hives Verified 10/08/24 08:57 tamsulosin (From Flomax) Allergy Respiratory Verified 10/08/24 08:57 metoclopramide (From Reglan) AdvReac AKATHISIA Verified 10/08/24 08:57 prochlorperazine (From AdvReac AKATHISIA Verified 10/08/24 08:57 Compazine) PFSH Active Problems All Active Problems 39 weeks gestation of (Acute) Encounter for induction of labor (Acute) Supervision of high risk in third trimester (Acute) Umbilical cord complication (Acute) Acute headache (Acute) Recurrent UTI (urinary tract infection) complicating (Acute) History of suicidal ideation (Acute) Depression affecting (Acute) Supervision of normal (Acute) Borderline personality disorder (Acute) Bipolar 2 disorder (Acute) Medical History Medical History Insufficient weight gain during pruritus Abnormal umbilical cord Acute loss of vision Supervision of high risk in second trimester Nausea/vomiting in UTI in Renal and ureteric calculus 17 weeks gestation of Acute flank pain UTI (urinary tract infection) Pyelonephritis Convulsive syncope Surgical History Surgical History H/O lithotripsy x 4 Family History Family History Mother Asthma COPD (chronic obstructive pulmonary disease) Father COPD (chronic obstructive pulmonary disease) Brother Diabetes Social History Social History Smoking Status: Former smoker Do you vape?: Yes Patient requests smoking cessation consult: Yes Initiate information on smoking cessation: Yes Living arrangement: Other Relationship: Do you feel safe in your home environment?: Yes Suffered physical, verbal, emotional, or financial abuse?: No History of Abuse: No Substance Use: cannabis (any form) Are you sexually active?: Yes 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
[2024-10-08] MEDS: LACTATED RINGERS 500 ML IV ONE (19:38)
[2024-10-08] MEDS: ONDANSETRON 4 MG/2 ML VIAL IVP PRN (20:12)
[2024-10-08] MEDS ORDERED: buPROPion XL 150 MG TABLET PO SCH (21:00)
[2024-10-08] MEDS: buPROPion SR 150 MG TABLET PO SCH (21:00)
[2024-10-08] MEDS: SERTRALINE 50 MG TABLET PO SCH (21:01)
--- OUTSIDE RECORDS SUMMARY | 2024-10-08 21:38 | EXTERNAL MEDICAL SUMMARY RPT | Continuity of Care Document ---
Author Organization [facility] Address [address] [place] [id number] Phone Problems date description facility 2024-07-10 19:03 Perianal venous thrombosis id [facility] 2024-07-12 11:18 Other visual disturbances idb [facility] 2024-07-12 11:18 Other specified preg lucinda related conditions, second trimester [facility] 2024-07-12 11:18 Headache, unspecified [facility] 2024-07-12 11:27 Other specified diseases of ritchie s and rectum [facility]12 11:27 Perianal venous thrombosis id [facility] 2024-07-12 11:27 Other specified preg lucinda related conditions, second trimester [facility] 2024-07-19 14:28 Supervision of high risk , unspecified, second trimester [facility] 2024-07-19 14:28 Encounter for superv ision of normal , unspecified, unspecified trimester [facility] 2024-07-20 00:04 Supervision of high risk , unspecified, second trimester [facility] 2024-07-20 00:04 Encounter for superv ision of normal , unspecified, unspecified trimester [facility] 2024-07-20 15:11 Supervision of high risk , unspecified, second trimester [facility] 2024-07-27 12:30 Encounter for immunization id [facility] 2024-08-23 07:48 Supervision of high risk , unspecified, third trimester [facility] 2024-08-23 07:48 Labor and delivery c omplicated by cord complication, unspecified, not applicable or unspecified [facility] 2024-08-24 09:56 Other specified dise ases and conditions complicating [facility] 2024-08-24 15:16 Supervision of high risk , unspecified, third trimester [facility] 2024-08-24 15:16 Labor and delivery c omplicated by cord complication, unspecified, not applicable or unspecified [facility] 2024-08-24 16:33 Supervision of high risk , unspecified, third trimester [facility] 2024-08-24 16:33 Labor and delivery c omplicated by cord complication, unspecified, not applicable or unspecified [facility] 2024-08-29 09:17 Supervision of high risk , unspecified, third trimester [facility] 2024-08-29 09:17 Labor and delivery c omplicated by cord complication, unspecified, not applicable or unspecified [facility] 2024-08-30 00:02 Supervision of high risk , unspecified, third trimester [facility] 2024-08-30 00:02 Labor and delivery c omplicated by cord complication, unspecified, not applicable or unspecified [facility] 2024 09:58 Pruritus, unspecified [facility] 2024 09:58 Diseases of the skin and subcutaneous tissue complicating , unspecified trimester [facility] 2024 10:15 [facility], [facility] 2024 10:15 Diseases of the skin and subcutaneous tissue complicating , unspecified trimester [facility] 2024-09-08 07:19 Low weight gain in , u nspecified trimester [facility] 2024-09-12 09:41 Low weight gain in , u nspecified trimester [facility] 2024-09-12 09:44 Low weight gain in , u nspecified trimester [facility] 2024-09-13 07:02 False labor before 3 7 completed weeks of gestation, third trimester [facility] 2024-09-13 10:11 False labor before 3 7 completed weeks of gestation, third trimester [facility] 2024-09-13 10:12 False labor before 3 7 completed weeks of gestation, third trimester [facility] 2024-09-13 10:13 False labor before 3 7 completed weeks of gestation, third trimester [facility] 2024-09-15 14:22 Encounter for screeni ng for Streptococcus B [facility] 2024-09-15 14:28 Encounter for screeni ng for Streptococcus B [facility] 2024-09-16 00:04 Encounter for screeni ng for Streptococcus B [facility] 2024-09-16 09:51 Encounter for screeni ng for Streptococcus B [facility] 2024-09-20 11:52 Low weight gain in , u nspecified trimester [facility] 2024-09-26 23:04 37 weeks gestation of [facility] 2024-09-27 01:20 37 weeks gestation of [facility] 2024-09-27 15:20 Low weight gain in , u nspecified trimester [facility] 2024-09-28 00:02 Low weight gain in , u nspecified trimester [facility] 2024-09-28 09:55 Low weight gain in , u nspecified trimester [facility] 2024-09-28 09:55 37 weeks gestation of [facility] 2024-09-29 06:02 False labor before 3 7 completed weeks of gestation, third trimester [facility] 2024-10-07 10:28 Other visual disturbances [facility] 2024-10-07 10:28 Other specified diseases of ritchie s and rectum [facility] 2024-10-07 10:28 Perianal venous thrombosis [facility] 2024-10-07 10:28 Pain in joints of right hand [facility] 2024-10-07 10:28 Low back pain, unspecified [facility] 2024-10-07 10:28 Other specified soft tissue dis orders [facility] 2024-10-07 10:28 Calculus of kidney [facility] 2024-10-07 10:28 Acute cystitis with hematuria [facility] 2024-10-07 10:28 Urinary tract infection, site n ot specified [facility] 2024-10-07 10:28 Mild hyperemesis gravidarum [facility] 2024-10-07 10:28 Vomiting of , unspecif ied [facility] 2024-10-07 10:28 Other specified preg lucinda related conditions, first trimester [facility] 2024-10-07 10:28 Other specified preg luicnda related conditions, second trimester [facility] 2024-10-07 10:28 Other specified dise ases and conditions complicating [facility] 2024-10-07 10:28 Dyspnea, [facility]07 10:28 Other chest pain [facility] 2024-10-07 10:28 Epigastric pain [facility] 2024-10-07 10:28 Right lower quadrant pain [facility] 2024-10-07 10:28 Left lower quadrant pain [facility] 2024-10-07 10:28 Unspecified abdominal pain [facility] 2024-10-07 10:28 Nausea [facility] 2024-10-07 10:28 Vomiting, unspecified [facility] 2024-10-07 10:28 Nausea with vomiting, unspecifi ed [facility] 2024-10-07 10:28 Dysuria [facility] 2024-10-07 10:28 Hematuria, unspecified [facility] 2024-10-07 10:28 Suicidal ideations [facility] 2024-10-07 10:28 [facility]ache, [facility] 2024-10-07 10:28 Unspecified injury o f right shoulder and upper arm, initial encounter [facility] 2024-10-07 10:28 Laceration without f oreign body of left thumb without damage to nail, initial encounter [facility] 2024-10-07 10:28 Unspecified injury o f right wrist, hand and finger(s), initial encounter [facility] 2024-10-08 19:21 Encounter for superv ision of normal , unspecified, unspecified [facility] 2024-10-08 19:21 39 weeks gestation of [facility] Results/Labs test date facility value unit notes Result panel 1 HGB - HEMOGLOBIN 2024-07-19 15:33 [facility] 10.8 g /dl (missing) MEAN CORPUSCULAR VOLUME 2024-07-19 15:33 [facility] 104. 1 fl (missing) GLUCOSE,1H PP 50GM DOSE 2024-07-19 15:33 [facility] 116 mg/dl Social History date description facility
[2024-10-08] MEDS: diphenhydrAMINE INJ 50 MG/ML VIAL IVP PRN (22:11)
[2024-10-09] MEDS: ROPIVACAINE 0.2% 200 MG/100 ML BAG EP PRN (02:08)
[2024-10-09] MEDS: GABAPENTIN 100 MG CAPSULE PO ONE (03:02)
[2024-10-09] MEDS: busPIRone 5 MG TABLET PO PRN (03:04)
--- NOTE | 2024-10-09 03:11 | PROVIDER PROGRESS NOTE ---
Labor Progress Note Labor Progress Note Labor Progress Note/Additional Text: 125 beats per baseline, moderate variability, accelerations present, no decelerations. Category 1 [place]: 3-4, occasionally difficult to trace, [place] well SVE: /-2 Discussed labor progress with patient. She is getting more anxious and tired. Worried about whether she will be able to handle the progress or if a section would be easier. She is very anxious about feeling pain, unsure if her epidural is working, and tired. We discussed the reassuring status of her heart rate tracing and good labor progress. Encouraged by the relatively fast cervical dilation, and she is nearing the active stage. We discussed the risk and benefits of surgery and that the recovery of this would be much longer than a vaginal delivery and she would be trading some comfort today for weeks of recovery. She expresses understanding, and willing to try some alternative therapies to help control her feelings of restlessness, akathisia, anxiety. Will try gabapentin, buspirone for the anxiety. Starting with a low-dose of gabapentin, so she could potentially go higher. If unable to sleep, will consider Vistaril, although she already had 50 mg of diphenhydramine at 2300. Patient seems reassured and has good support.
[2024-10-09] MEDS ORDERED: miSOPROStoL 200 MCG TABLET ONE (05:10)
[2024-10-09] MEDS ORDERED: METHYLERGONOVINE 0.2 MG/ML VIAL ONE (05:10)
[2024-10-09] MEDS ORDERED: CARBOPROST TROMETHAMINE 250 MCG/ML VIAL IM ONE (05:11)
--- NOTE | 2024-10-09 06:43 | PROVIDER PROGRESS NOTE ---
Labor Progress Note Labor Progress Note Labor Progress Note/Additional Text: Called the patient's bedside to assess. Patient is having frequent decelerations. This looked like a mix of variable versus early decelerations, but could not clearly see contractions, anticipated placing IUPC, but upon checking, patient was found to be complete and ready to push. Pushed with patient, had good pushing efforts. Anticipate . FHT: 125 beats per baseline, moderate variability, accelerations present, early versus variable decelerations. Wise: 2 to 4 minutes SVE: 10/100/0
[2024-10-09] MEDS ORDERED: HYDROCORTISONE 1% CREAM 28 GM TUBE TOP PRN (08:23)
[2024-10-09] MEDS ORDERED: WITCH HAZEL/GLYCERIN 1 PAD TOP PRN (08:23)
[2024-10-09] MEDS ORDERED: SIMETHICONE CHEW 80 MG TABLET PO PRN (08:23)
[2024-10-09] MEDS ORDERED: CALCIUM CARBONATE CHEW 500 MG TABLET PO PRN (08:23)
[2024-10-09] MEDS ORDERED: ONDANSETRON 4 MG/2 ML VIAL IVP PRN (08:23)
--- NOTE | 2024-10-09 08:28 | DELIVERY NOTE ---
Delivery Note Labor Labor: positive Augmented by ARM Cervical Ripening Method Cervical Ripening Method: positive Misoprostil Presentation Presentation: positive Compound (Left arm) and SUSHIL - right occiput anterior Nuchal Cord Nuchal Cord: positive None Laceration Laceration: positive 2nd degree Suture Suture Type: positive Vicryl Suture Size: positive 3-0 Cord Cord: positive 3 vessels Placenta Placenta: positive Intact Estimated Blood Loss Estimated Blood Loss (in cc): 300 Post Delivery Events Post Delivery Events: positive No post delivery events Delivery Comments (Free Text/Narrative) Delivery Comments (Free Text/Narrative): Preoperative Diagnoses 39 weeks gestation Induction of labor Postoperative Diagnoses Same Status post spontaneous vaginal delivery Delivery of live alberto Summary Patient is admitted at 39 weeks for term induction of labor at patient's request. She received 1 dose of misoprostol, but was [place] too frequently to get another dose. After allowing her time to settle down, this did not resolve, so we attempted to place a cervical ripening balloon. During placement, she had artificial rupture of membranes, so the balloon was removed. After that, she continued to contract on her own and progressed to complete and ready to push. Overall category 1 tracing throughout labor, with a short period of category 2 tracing, but overall very reassuring. Delivery Summary: Patient was placed in the dorsal lithotomy position. Upon maternal pushing the head was delivered atraumatically followed by the left hand, anterior shoulder, posterior shoulder, then the remainder of the 's body. There is a body cord, but rolled off with delivery. A female was delivered with APGARS of 8 at 1 minute and 8 at 5 minutes. The infant was placed on its mother's chest . After the cord finished pulsating, the umbilical cord was clamped times two and cut. The placenta delivered intact with three vessel cord. Placenta was not sent to pathology. Thirty units of Pitocin were added to the IV fluid and allowed to run freely. Uterine massage was performed until uterus was deemed firm. Upon inspection of perineum, she had a briskly bleeding second-degree midline laceration which was repaired with a running stitch of 3-0 Vicryl. She also had a periurethral tear, but was not bleeding, so this is not stitched. Upon re- inspection the patient was hemostatic. Uterus again massaged and found to be firm. Needle and sponge counts were correct. Patient was stable and allowed to recover in L&D room. was stable and remained in room with mother. weight is pending at this time.
[2024-10-09] MEDS: IBUPROFEN 600 MG TABLET PO SCH (09:34)
[2024-10-09] MEDS: ACETAMINOPHEN 500 MG TABLET PO SCH (09:34)
[2024-10-09] MEDS: DOCUSATE SODIUM 100 MG CAPSULE PO PRN (21:01)
[2024-10-09] MEDS: oxyCODONE 5 MG TABLET PO PRN (21:01)
[2024-10-10] MEDS: LACTATED RINGERS 1,000 ML IV SCH ×2 (09:34→12:56)
--- NOTE | 2024-10-10 09:54 | PHARMACY PROGRESS NOTE ---
Best Possible Medication History Admit Date and Time: 10/08/24 1721 Home Medications Medication Instructions Recorded Confirmed Type bupropion HCl 150 mg tablet,12 hr 150 mg PO QDAY #90 t abs 03/31/24 10/10/24 Rx sustained-release (Wellbutrin SR) acetaminophen 500 mg tablet 1,000 mg (2 x 500 mg) PO Q 8H PRN 05/11/24 10/10/24 Rx Mild Pain Or Fever>38c(100.4f) #30 tabs hydrocortisone 1 % topical cream 1 applic topical DIMITRIOS Y PRN itching 07/10/24 10/10/24 Rx (Preparation H Hydrocortisone) #28.35 grams buspirone 5 mg tablet 5 mg PO PRN PRN anxiety 09/2510/10/24 History docusate sodium 100 mg capsule 100 mg PO DAILY PRN Con stipation 10/10/24 10/10/24 History polyethylene glycol 3350 17 17 g PO PRN 10/10/2410/10 History gram/dose oral powder (ClearLax) sertraline 100 mg tablet 100 mg PO DAILY 10/10/24 History Processed by: Pharmacy (on call pharmacy technicianMallika) Medications reviewed in ED?: No Medication History completed: Yes Patient Interview: Completed Secondary Source(s): Pharmacy records [facility] Statement: As the person ultimately responsible for medication therapy, providers are able to order a medication from an existing home medication list in [facility] via the "Reconcile Routine" prior to Confirmation of that medication by technical support consultant. Such practice is discouraged except when the physician, in their clinical judgment, deems that a medical need exists for a medication without regard to previous use.
[2024-10-10 09:55] LABS: HCT - HEMATOCRIT 30.5 % (37.0-47.0); HGB - HEMOGLOBIN 9.7 g/dL (12.0-16.0); MEAN CORPUSCULAR HEMOGLOBIN 32.8 pg (27.0-31.0); MEAN CORPUSCULAR HGB CONC 31.8 g/dL (32.0-36.0); MEAN PLATELET VOLUME 9.4 fL (7.9-10.8); RED BLOOD COUNT 2.96 10^6/uL (4.20-5.40); RED CELL DISTRIBUTION WIDTH 14.1 % (12.0-15.0); WHITE BLOOD COUNT 13.7 x10^3/uL (4.8-10.8)
[2024-10-10] MEDS ORDERED: LACTATED RINGERS 1,000 ML IV SCH (10:00)
--- NOTE | 2024-10-10 10:20 | ANESTHESIA PROCEDURE NOTE ---
Pre-Anesthesia VS, & Labs Diagnosis Surgical Diagnosis:: desires sterilization Procedure Procedure: post tubal ligation Vitals Vital Signs: Temp Pulse Resp BP Pulse Ox 37.1 C 67 16 108/66 97 10/10/24 08:42 10/10/24 08:42 10/10/24 08:42 10/10/24 08:42 10/10/24 08:42 NPO NPO: >8 hours Is Patient ?: No Lab Results Current Lab Results: Laboratory Tests 10/10/24 09:50: WBC 13.7 H, RBC 2.96 L, Hgb 9.7 L, Hct 30.5 L, MCV 103.0 H, MCH 32.8 H, MCHC 31.8 L, RDW 14.1, Plt Count 305, MPV 9.4 10/08/24 08:30: WBC 7.8, RBC 3.24 L, Hgb 10.7 L, Hct 32.9 L, MCV 101.5 H, MCH 33.0 H, MCHC 32.5, RDW 14.0, Plt Count 377, MPV 10.4, Neut # (Auto) 4.2, Lymph # (Auto) 2.8, Bartholomew # (Auto) 0.5, Eos # (Auto) 0.1, Baso # (Auto) 0.1, Absolute Nucleated RBC 0.00, Nucleated RBC % 0.0, Blood Type O POSITIVE, Antibody Screen NEGATIVE 10/10/24 09:50 Meds/Allgy Home Medications Ambulatory Orders Medication Instructions Recorded Confirmed bupropion HCl 150 mg tablet,12 hr 150 mg PO QDAY #90 t abs 03/31/24 10/10/24 sustained-release (Wellbutrin SR) acetaminophen 500 mg tablet 1,000 mg (2 x 500 mg) PO Q 8H PRN 05/11/24 10/10/24 Mild Pain Or Fever>38c(100.4f) #30 tabs hydrocortisone 1 % topical cream 1 applic topical DIMITRIOS Y PRN itching 07/10/24 10/10/24 (Preparation H Hydrocortisone) #28.35 grams buspirone 5 mg tablet 5 mg PO PRN PRN anxiety 09/2510/10/24 docusate sodium 100 mg capsule 100 mg PO DAILY PRN Con stipation 10/10/24 10/10/24 polyethylene glycol 3350 17 17 g PO PRN 10/10/2410/10 gram/dose oral powder (ClearLax) sertraline 100 mg tablet 100 mg PO DAILY 10/10/24 Allergies Allergies Allergy/AdvReac Type Severity Reaction Status Date / Time amoxicillin Allergy Intermediate Hives Verified 10/08/24 08:57 coconut Allergy Intermediate Hives Verified 10/08/24 08:57 tamsulosin (From Flomax) Allergy Respiratory Verified 10/08/24 08:57 metoclopramide (From Reglan) AdvReac AKATHISIA Verified 10/08/24 08:57 prochlorperazine (From AdvReac AKATHISIA Verified 10/08/24 08:57 Compazine) PFSH Active Problems All Active Problems 39 weeks gestation of (Acute) Encounter for induction of labor (Acute) Supervision of high risk in third trimester (Acute) Umbilical cord complication (Acute) Acute headache (Acute) Recurrent UTI (urinary tract infection) complicating (Acute) History of suicidal ideation (Acute) Depression affecting (Acute) Supervision of normal (Acute) Borderline personality disorder (Acute) Bipolar 2 disorder (Acute) Medical History Medical History Insufficient weight gain during pruritus Abnormal umbilical cord Acute loss of vision Supervision of high risk in second trimester Nausea/vomiting in UTI in Renal and ureteric calculus 17 weeks gestation of Acute flank pain UTI (urinary tract infection) Pyelonephritis Convulsive syncope Surgical History Surgical History H/O lithotripsy x 4 Family History Family History Mother Asthma COPD (chronic obstructive pulmonary disease) Father COPD (chronic obstructive pulmonary disease) Brother Diabetes Social History Social History Smoking Status: Former smoker Do you vape?: Yes Patient requests smoking cessation consult: Yes Initiate information on smoking cessation: Yes Living arrangement: Other Relationship: Do you feel safe in your home environment?: Yes Suffered physical, verbal, emotional, or financial abuse?: No History of Abuse: No Substance Use: cannabis (any form) Are you sexually active?: Yes Occupation: [employer] and [employer] Patient has POLST: No Anesthesia Exam (Expanded) Exam General: Alert and Oriented x3 Dental: WNL Mouth Opening: Greater than 4 Fingerbreadths Neck Mobility: Normal Mallampati classification: I Thyromental Distance: greater than 6 cm Respiratory: Lungs clear Cardiovascular: Regular rate Exam Exam Vital Signs: Vital Signs x48h Temp Pulse Resp BP Pulse Ox 10/10/24 08:42 37.1 C 67 16 108/66 97 10/10/24 03:28 36.6 C 61 16 107/60 100 Plan Problem List (1) 39 weeks gestation of : Plan: As above Plan Anesthesia Type: Spinal Consent for Procedure(s) Verified and Reviewed: Yes Code Status: Attempt Resuscitation ASA Classification ASA classification: 2-Mild systemic disease Is this case an emergency?: No
[2024-10-10] MEDS ORDERED: fentaNYL 100 MCG/2 ML VIAL ONE (10:21)
[2024-10-10] MEDS ORDERED: MIDAZOLAM 2 MG/2 ML VIAL ONE (10:21)
[2024-10-10] MEDS ORDERED: PROPOFOL 200 MG/20 ML VIAL IVP ONE (10:21)
[2024-10-10] MEDS ORDERED: BUPIVACAINE 0.25% PF 30 ML VIAL ONE (10:24)
[2024-10-10] MEDS ORDERED: HYDROCORTISONE 1% TOP PRN (10:28)
[2024-10-10] MEDS ORDERED: busPIRone 5 MG TABLET PO PRN (10:28)
[2024-10-10 10:36] LABS: FERRITIN 46.8 ng/mL (11.0-306.8)
[2024-10-10] MEDS ORDERED: LIDOCAINE-MPF 2% 5 ML VIAL ONE (10:40)
--- NOTE | 2024-10-10 10:58 | Preop H&P Attestation ---
Preop H&P Attestation Preop History & Physical H&P must be within last 30 days.: s/p vaginal delivery yesterday am. wishes sterilization. will do today. sure that she does not want more children. OK to discard tubes if they appear normal. Preop H&P Date: 10/08/24
[2024-10-10] MEDS ORDERED: SERTRALINE 50 MG TABLET PO SCH (11:00)
[2024-10-10] MEDS ORDERED: fentaNYL 100 MCG/2 ML VIAL IVP PRN (12:26)
[2024-10-10] MEDS ORDERED: HYDROmorphone 0.5 MG/0.5 ML SYRINGE IVP PRN (12:26)
[2024-10-10] MEDS ORDERED: ATROPINE ABBOJECT 1 MG/10 ML SYRINGE IVP PRN (12:26)
[2024-10-10] MEDS ORDERED: NALOXONE 0.4 MG/ML VIAL IVP PRN (12:26)
[2024-10-10] MEDS ORDERED: MORPHINE 2 MG/ML CARPUJECT IVP PRN (12:26)
[2024-10-10] MEDS ORDERED: ONDANSETRON 4 MG/2 ML VIAL IVP PRN (12:26)
[2024-10-10] MEDS ORDERED: KETOROLAC 15 MG/ML VIAL ONE (12:54)
[2024-10-10] MEDS: KETOROLAC 30 MG/ML VIAL IVP SCH (12:56)
[2024-10-10] MEDS: IRON DEXTRAN 1,000 MG in SODIUM CHLORIDE 0.9% 250 ML IV ONE (13:33)
[2024-10-10] MEDS: oxyCODONE 5 MG TABLET PO PRN (13:58)
--- NOTE | 2024-10-10 14:32 | ANESTHESIA POST OP EVALUATION ---
Anesthesia Post Eval Post Anesthesia Eval Vitals: Last Vital Signs Temp 36.7 C 10/10/24 14:03 Pulse 61 10/10/24 14:22 Resp 16 10/10/24 14:22 BP 112/71 10/10/24 14:22 Pulse Ox 98 10/10/24 14:22 CV Function Including HR & BP: Stable Pain Control: Satisfactory Nausea & Vomiting: Negative Mental Status: Baseline Respiratory Status: Airway Patent Hydration Status: Satisfactory Anesthesia Complications: None
[2024-10-10] MEDS: CYANOCOBALAMIN 1,000 MCG/ML VIAL SUBQ SCH (18:26)
[2024-10-10] MEDS ORDERED: oxyCODONE 5 MG TABLET PO PRN (21:07)
--- NOTE | 2024-10-10 21:12 | PROVIDER PROGRESS NOTE ---
Subjective Subjective Subjective: RN calling. patient having post op pain. abdomen soft. vital stable. voiding. Current Medications Current Medications Current Medications: Current Medications Generic Name Dose Route Start Last Admin Trade Name Freq PRN Reason Stop Dose Admin Acetaminophen 1,000 mg 10/09/24 09:00 10/10/24 13:32 Acetaminophen 500 Mg Tablet PO 1,000 mg Q8HR DADA Administration Bupropion HCl 150 mg 10/08/24 21:00 10/09/24 21:01 Bupropion Sr 150 Mg Tablet PO 150 mg DAILY DADA Administration Buspirone HCl 5 mg 10/08/24 17:46 10/09/24 03:04 Buspirone 5 Mg Tablet PO 5 mg BID PRN Administration anxiety Calcium Carbonate/Glycine 500 mg 10/09/24 08:23 Calcium Carbonate Chew 500 Mg Tablet PO TID PRN Heartburn Cyanocobalamin 1,000 mcg 10/10/24 11:00 10/10/24 18:26 Cyanocobalamin 1,000 Mcg/Ml Vial SUBQ 1,000 mcg DAILY DADA Administration Docusate Sodium 100 mg 10/09/24 20:47 10/09/24 21:01 Docusate Sodium 100 Mg Capsule PO 100 mg BID PRN Administration Constipation Fentanyl 50 mcg 10/10/24 21:06 Fentanyl 100 Mcg/2 Ml Vial IVP 10/10/24 21:07 Q1H ONE Hydrocortisone 1 applic 10/09/24 08:23 Hydrocortisone 1% Cream 28 Gm Tube TOP BID PRN Hemorrhoids Tranexamic Acid 1,000 mg in 100 mls @ 600 mls/hr 10/08/24 07:55 Tranexamic 1,000 Mg/100ml-Nacl IV Q30M PRN EBL >1200mL and within 3hr Lactated Ringer's 1,000 mls @ 125 mls/hr 10/10/24 10:00 Lr IV .Q8H DADA Ibuprofen 600 mg 10/11/24 15:00 Ibuprofen 600 Mg Tablet PO Q6H DADA Ketorolac Tromethamine 30 mg 10/10/24 15:00 10/10/24 18:19 Ketorolac 30 Mg/Ml Vial IVP 10/11/24 09:01 30 mg Q6H DADA Administration Labetalol HCl 20 mg 10/08/24 07:55 Labetalol 20 Mg/4 Ml Syringe IVP .ONCE PRN SBP> or= 160 OR DBP> or= 110 Protocol Labetalol HCl 20 - 40 mg 10/08/24 07:55 Labetalol 20 Mg/4 Ml Syringe IVP Q10M PRN SBP> or= 160 OR DBP> or= 110 Protocol Methylergonovine Maleate 0.2 mg 10/08/24 07:55 Methylergonovine 0.2 Mg/Ml Vial IM .ONCE PRN Hemorrhage Nalbuphine HCl 2.5 - 5 mg 10/08/24 19:11 Nalbuphine 10 Mg/Ml Amp IVP Q4H PRN ITCHING Naloxone HCl 0.1 mg 10/08/24 19:11 Naloxone 0.4 Mg/Ml Vial IVP Q2M PRN RR<8 Nifedipine 10 - 20 mg 10/08/24 07:55 Nifedipine 10 Mg Capsule PO Q20M PRN SBP> or= 160 OR DBP> or= 110 Protocol Ondansetron HCl 4 mg 10/08/24 07:55 Ondansetron Odt 4 Mg Tablet PO Q4HR PRN Nausea / Vomiting Oxycodone HCl 5 mg 10/10/24 12:19 10/10/24 19:27 Oxycodone 5 Mg Tablet PO 5 mg Q4HR PRN Administration Moderate Pain (Level 4-6) Oxycodone HCl 10 mg 10/10/24 21:07 Oxycodone 5 Mg Tablet PO Q4HR PRN Severe Pain (Level 7-10) Oxycodone HCl 5 mg 10/10/24 21:09 Oxycodone 5 Mg Tablet PO ONCE DADA Polyethylene Glycol 17 gm 10/11/24 09:00 Polyethylene Glycol 3350 17 Gm Packet PO DAILY PRN Constipation Sertraline HCl 100 mg 10/08/24 21:00 10/09/24 21:08 Sertraline 50 Mg Tablet PO 100 mg DAILY DADA Administration Sertraline HCl 100 mg 10/10/24 11:00 Sertraline 50 Mg Tablet PO DAILY DADA Simethicone 80 mg 10/09/24 08:23 Simethicone Chew 80 Mg Tablet PO TID PRN Gas Sodium Chloride 10 ml 10/08/24 08:00 10/10/24 03:33 Sodium Chloride Flush 0.9% 10 Ml Syringe IVP 10 ml Q8H ADDA Administration Witch Jeanie/Glycerin 1 pad 10/09/24 08:23 Witch Jeanie/Glycerin 1 Pad TOP PRN PRN ITCHING Objective Vital Signs/Intake & Output Vital Signs: Vital Signs x48h Temp Pulse Resp BP Pulse Ox 10/10/24 20:37 37 C 57 L 16 108/65 10/10/24 16:10 36.8 C 67 16 120/68 98 10/10/24 14:22 61 16 112/71 98 10/10/24 14:03 36.7 C 65 16 108/61 98 10/10/24 13:40 61 16 115/63 97 10/10/24 13:25 64 16 107/68 98 Intake & Output: Intake & Output 10/07/24 10/08/24 10/09/24 10/10/24 23:59 23:59 23:59 23:59 Intake Total 500 / 500 1700 / 1700 250 / 250 Output Total 1351 / 1351 526 / 526 Balance 500 / 500 349 / 349 -276 / -276 Weight (kg) 187 lb 6.287 oz Lab Results 10/10/24 09:50 Other Labs: Lab Results x24hrs 10/10/24 Range/Units 09:50 WBC 13.7 H (4.8-10.8) x10^3/uL RBC 2.96 L (4.20-5.40) 10^6/uL Hgb 9.7 L (12.0-16.0) g/dL Hct 30.5 L (37.0-47.0) % MCV 103.0 H (81.0-99.0) fL MCH 32.8 H (27.0-31.0) pg MCHC 31.8 L (32.0-36.0) g/dL RDW 14.1 (12.0-15.0) % Plt Count 305 (130-450) 10^3/uL MPV 9.4 (7.9-10.8) fL Ferritin 46.8 (11.0-306.8) ng/mL Vitamin B12 117 L (180-914) pg/mL Assessment/Plan Problem List (1) Post-op pain: Impression: 5 mg oxycodone and 50 mcg fentanyl now. can given 10 of oxy with severe pain. getting toradol and tylenol scheduled. does not seem that she is bleeding or that anythign is "wrong" besides that she is painful.
[2024-10-10] MEDS ORDERED: oxyCODONE 5 MG TABLET PO STA (21:18)
--- NOTE | 2024-10-10 21:21 | OPERATIVE REPORT ---
Operative Report General Admit Date: 10/08/24 Procedure Data: Operation Date: 10/10/24 10:30 Proposed Procedures p Bilateral Tubal Ligation(Bilateral) - Erica Cisse MD Actual Procedures p Bilateral Tubal Ligation(Bilateral) - Erica Cisse MD Anesthesia Type General Case Staff Anesthesia Provider: Lani Pena Case Times Into Recovery: 10/10/24 12:10 Procedure Start: 10/10/24 11:41 Procedure End: 10/10/24 12:04 Time out: 10/10/24 11:40 Pre-Op Diagnosis: undesired future fertility Post Op Diagnosis: same Procedure Note Intake, IV Amount (ml): 500 Estimated Blood Loss (ml): 5 Output, Urine Amount (ml): 0 Pathology: none Indications: s/p vaignal delivery yesterday in am. sure of decision for permanent sterility. explained permanent and not reversible. Did sign medicaid form in July. Findings: Normal appearing pp fundus, normal tubes, and normal ovaries. Complications: none Other Other Information/Narrative: S/P vaginal delivery yesterday am. Procedure, risks, benefits and irreversibility of salpingectomies was discussed. She signed the hospital consent form. She was very sure of her decision. She was brought to OR and spinal was given. Abdomen was prepped and draped. Time out done. Anesthesia tested and found to be adequate. Marcaine injected under umbilicus and incision made with knife. About 3 cm. This incision was carried down with knife and then scissors to the peritoneum. Rosy clamps were used to hold the tissue away from the abdominal contents as I dissected down. Peritoneum was entered while lifting up on it to avoid bowel. Small Gabriel retractor was placed and no bowel was caught under it. Fallopian tube on right identified and followed to fimbriated end. Small LigaSure was used to seal and cut the mesosalpinx along length of tube. Tube was removed in its entirety. No bleeding at cut end. Same done on left. Gabriel removed and fascia closed with 0 Vicryl suture. Sub Q space irrigated with Marcaine. A few stitches of 4-0 monocryl placed in sub Q and skin was closed with 4-0 Monocryl in subcuticular fashion. Steristrip placed and then Bandage over that. She was moved onto her bed brought to PACU in stable condition. Patient desired to take her fallopian tubes home. She agreed not to have her normal appearing tubes sent to pathology. Lexi Armijo CNM assisted with retraction and visualization during the entire case.
[2024-10-10] MEDS: fentaNYL 100 MCG/2 ML VIAL IVP ONE (22:44)
[2024-10-11] MEDS ORDERED: polyethylene glycoL 3350 17 GM PACKET PO PRN (09:00)
[2024-10-11 09:09] VITALS: BP 110/57; TEMP 98.6; O2SAT 100
--- NOTE | 2024-10-11 11:19 | Discharge Summary ---
"Discharge Summary Admit Date: 10/08/24 Discharge Date: 10/11/24 Discharging Provider: Erica Cisse MD Code Status: Attempt Resuscitation DIAGNOSES Admission Diagnoses: encounter for labor induction at 39 weeks. Discharge Diagnoses with Status of Each Condition: mental health issues, stable desired sterility, accomplished vaginal delivery HPI History of Present Illness: presents for labor induction at 39 weeks. complicated by mental health issues. slow weight gain but then better. CONSULTS | PROCEDURES Procedures: vaginal delivery with epidural anesthesia post bilateral salpingectomies for sterility. HOSPITAL COURSE Hospital Course: admitted for induction. Miso x 1. [place] too much for more. attempt to place cervical catheter led to AROM. she labored spontaneously after that. received an epidural. vaginal delivery of baby girl Thu weighing 2809 gm. Apgars 8/8. The following morning post sterilization was performed under spinal without complication. She was discharged home on POD #1 and PPd#2. She is breast feeding. Leonela from [facility] saw her prior to discharge. Post hct was 30% so IV iron was given. Also she is macrocytic with a very low B12 so she was given 2 injections before discharge and then sent home with supplement. ALLERGIES Allergies Allergy/AdvReac Type Severity Reaction Status Date / Time amoxicillin Allergy Intermediate Hives Verified 10/08/24 08:57 coconut Allergy Intermediate Hives Verified 10/08/24 08:57 tamsulosin (From Flomax) Allergy Respiratory Verified 10/08/24 08:57 metoclopramide (From Reglan) AdvReac AKATHISIA Verified 10/08/24 08:57 prochlorperazine (From AdvReac AKATHISIA Verified 10/08/24 08:57 Compazine) MEDICATIONS Ambulatory Orders Medication Instructions Recorded Confirmed bupropion HCl 150 mg tablet,12 hr 150 mg PO QDAY #90 t abs 03/31/24 10/10/24 sustained-release (Wellbutrin SR) acetaminophen 500 mg tablet 1,000 mg (2 x 500 mg) PO Q 8H PRN 05/11/24 10/10/24 Mild Pain Or Fever>38c(100.4f) #30 tabs hydrocortisone 1 % topical cream 1 applic topical DIMITRIOS Y PRN itching 07/10/24 10/10/24 (Preparation H Hydrocortisone) #28.35 grams buspirone 5 mg tablet 5 mg PO PRN PRN anxiety 09/2510/10/24 polyethylene glycol 3350 17 17 g PO PRN 10/10/2410/10 gram/dose oral powder (ClearLax) sertraline 100 mg tablet 100 mg PO DAILY 10/10/24 docusate sodium 100 mg capsule 100 mg PO BID PRN const ipation #60 10/11/24 (Colace) caps ibuprofen 600 mg tablet 600 mg PO Q6H PRN pain #30 t abs 10/11/24 oxycodone 5 mg tablet 5 mg PO Q4H PRN pain #10 tab s 10/11/24 PHYSICAL EXAM AT DISCHARGE Vital Signs: Vital Signs x48h Temp Pulse Resp BP Pulse Ox 10/11/24 09:08 37.0 C 54 L 16 110/57 L 100 General Appearance: positive No acute distress Respiratory: positive No respiratory distress Cardiovascular: positive Regular rate & rhythm Extremities: positive Non-tender Neurologic/Psychiatric: positive Oriented x3 and Mood/affect nml LABS 10/10/24 09:50 Other Lab Results: B12 117. (180 is low normal) FOLLOW UP Follow Up: in clinic in 1-2 weeks. TIME SPENT Time Spent in Discharge (Minutes): 32 Discharge Plan Discharge Patient Disposition: [facility], Self Care Condition: Good Prescriptions: Continued oxycodone 5 mg tablet 5 mg PO Q4H PRN (Reason: pain) Qty: 10 0RF ibuprofen 600 mg tablet 600 mg PO Q6H PRN (Reason: pain) Qty: 30 1RF docusate sodium [Colace] 100 mg capsule 100 mg PO BID PRN (Reason: constipation) Qty: 60 1RF acetaminophen 500 mg Tablet 1,000 mg PO Q8H PRN (Reason: Mild Pain Or Fever>38c(100.4f)) Qty: 30 0RF hydrocortisone [Preparation H Hydrocortisone] 1 % cream 1 applic topical DAILY PRN (Reason: itching) Qty: 28.35 0RF buspirone 5 mg tablet 5 mg PO PRN PRN (Reason: anxiety) sertraline 100 mg tablet 100 mg PO DAILY polyethylene glycol 3350 [ClearLax] 17 gram/dose powder 17 g PO PRN bupropion HCl [Wellbutrin SR] 150 mg tablet sustained-release 12 hr 150 mg PO QDAY Qty: 90 3RF Activity Restrictions/Additional Instructions: pelvic rest 6 weeks. Print Language: Divehi Patient Instructions: Surg Dc"
[2024-10-11] MEDS ORDERED: IBUPROFEN 600 MG TABLET PO SCH (15:00)
--- NOTE | 2024-10-11 19:32 | Labor Flowsheet ---
Labor Flowsheet Datetime Report Generated by CPN: 10/11/2024 19:32 Datetime: 10/11/2024 09:00 VITAL SIGNS NBP Sys/Lucretia/Mean (mmHg): 110 : 71 : 80 Pulse: 54 Datetime: 10/10/2024 03:29 SpO2 (%): 100 Datetime: 10/09/2024 10:45 Stage of : Recovery Datetime: 10/09/2024 09:30 PAIN Pain Scale: 0 Datetime: 10/09/2024 08:09 LaborFlag: Labor Datetime: 10/09/2024 08:02 COMMUNICATION Communication: RN at Bedside; RN Reviewed Strip; Call/Page Placed to Provider Communication Comments: Dr. Belle and Aashish Silverman RN called for delivery Datetime: 10/09/2024 05:49 Actions for Decelerations: IV Bolus; Sterile Vaginal Exam; Provider Notified Procedures: Sterile Vag Exam Patient Position/Activity: Left Lateral; Low Fowlers Hygiene: Breann Care Datetime: 10/09/2024 05:40 PATIENT CARE IV/Blood Work: IV Bolus Started Datetime: 10/09/2024 05:36 VAGINAL EXAM Dilatation (cm): 7.5 Effacement (%): 90 Station: 0 Exam by: JENN Neal Vaginal Bleeding: Moderate Cervix, Consistency: Soft Cervix, Position: Midposition Datetime: 10/09/2024 04:58 Temperature (C): 37.1 Datetime: 10/08/2024 22:44 MATERNAL ASSESSMENT Level of Consciousness: Agitation or Confusion Nausea/Vomiting: Hx of Nausea/Vomiting Anesthesia Comments: provider notified via secure page Datetime: 10/08/2024 20:47 I/O Interventions: Clear Liquids Given Anesthesia Level Check: T8- Ribs Datetime: 10/08/2024 19:00 Monitor Interventions for UA: [place] Adjusted Contraction Comments: unable to determine d/t maternal position ASSESSMENT A Monitor Mode: Telemetry FHR Baseline Rate : 130 Variability: Moderate 6-25 bpm Accelerations: 15X15 Decelerations: None Category: Category I Comments: Broken FHT d/t maternal position Datetime: 10/08/2024 18:58 UTERINE ACTIVITY Monitor Mode: Palpation Quality: Moderate Resting Tone (Palpate): Relaxed Datetime: 10/08/2024 18:31 Epidural Procedure: Test Dose Datetime: 10/08/2024 18:30 Frequency (min): 2-3 Duration (sec): 50-60 Datetime: 10/08/2024 18:26 ANESTHESIA Anesthesia Plans: Local Datetime: 10/08/2024 18:10 Epidural Positioning: Sitting Datetime: 10/08/2024 17:47 Medication Comments: LR bolus started. Datetime: 10/08/2024 17:16 Membranes Ruptured Date/Time: 10/08/2024 17:16 Membranes Rupture Method: Artificial Amniotic Fluid Color: Clear Amniotic Fluid Amount: Small Amniotic Fluid Odor: Normal Membrane Comments: with attempt of COOKS placement by Dr. Belle Datetime: 10/08/2024 16:32 Respirations: 17 Temperature Route: Oral Pain Presence: Intermittent Pain Type: Contraction Datetime: 10/08/2024 16:30 Pattern: Normal: <= 5 Contractions in 10 Minutes Datetime: 10/08/2024 16:00 Monitor Interventions for FHR: Ultrasound Adjusted Datetime: 10/08/2024 15:44 MEDICATIONS Analgesics/Sedatives: Fentanyl (mcg) @ 50 Patient Care Comments: pt returns to bed Datetime: 10/08/2024 14:33 Pain Assessment Comments: Nitrious oxide initated Datetime: 10/08/2024 12:49 Pain Location: Abdomen Datetime: 10/08/2024 09:39 Cervical Ripening Agents: Cytotec @
== END 2024-10-11 13:10 | disposition home or self-care (01) | DRG 797 ==
LOC: WFO 07:47 → FBP 07:49
PROVIDERS: ADMIT Obstetrics & Gynecology; ATTEND Obstetrics & Gynecology
DX: O76 Abnormality in fetal heart rate and rhythm complicating labor and delivery; O99.892 Other specified diseases and conditions complicating childbirth; F41.9 Anxiety disorder, unspecified; O99.344 Other mental disorders complicating childbirth; G89.18 Other acute postprocedural pain; Z3A.39 39 weeks gestation of pregnancy; R87.820 Cervical low risk human papillomavirus (HPV) DNA test positive; O99.355 Diseases of the nervous system complicating the puerperium; Z37.0 Single live birth; O32.6XX0 Maternal care for compound presentation, not applicable or unspecified; O99.12 Other diseases of the blood and blood-forming organs and certain disorders involving the immune mechanism complicating childbirth; Z30.2 Encounter for sterilization; D75.89 Other specified diseases of blood and blood-forming organs; F32.A Depression, unspecified; Z87.891 Personal history of nicotine dependence; O70.1 Second degree perineal laceration during delivery; O99.214 Obesity complicating childbirth